=== PATIENT | female | born 1945 | race Caucasian/White ===

== ENCOUNTER → 2016-12-04 | Outpatient (CLI) | payer OTHER ==
[~2016-12-04] VITALS: Ht 154.9 cm; Wt 144.1 kg
[~2016-12-04] MED LIST: ACETAMINOPHEN325 M1 PO; AUGMENTIN XR 11 EACH PO; AUGMENTIN XR1000 MG PO; CARVEDILOL6.25 MG PO; DILTIAZEM 24HR180 MG PO; FAMVIR250 MG PO; FLAGYL; FOLIC ACID0.8 MG PO; IBUPROFEN 200200 M1 PO; IBUPROFEN 600600 M1 PO; IRON325 PO; LIPITOR40 MG PO; METHADONE HCL 110 M1 PO; MOBIC7.5 MG PO; NEOSPORIN OINTM15 GM; NORCO 5-325 TA1 EACH PO; OPANA10 MG PO; OXYCODONE HCL15 MG PO; OXYMORPHONE HCL10 MG PO; PRILOSEC 20 MG20 MG PO; PROZAC10 MG PO; STOOL SOFTENER1 EAC2 PO; SYNTHROID150 MCG PO; VITAMIN D 5050000 I1 PO; VITAMIN D-32000 UNIT PO; VOLTAREN GEL 1100 G2 TOP; VOLTAREN GEL 1100 GM TOP; XARELTO10 MG PO; XARELTO20 MG PO
--- NOTE | ~2016-12-04 | HPC ---
[facility] [address] [place] [address] PAIN MANAGEMENT CONSULTATION Name: TIAN BERNARD PAGE Room #: REG ASCENCION Renetta#: [id number] Admission: 12/04/16 Attend Phys: Placido Barrera DO Discharge: Date of : 47 Report #: [id number] THIS REPORT FOR: //name// CC: Leigha Barrera HISTORY OF PRESENT ILLNESS: The patient is a 71-year-old female, typically treated for DJD bilateral knees, right rotator cuff injury, requiring complex medication management, chronic pain syndrome, complicated by morbid obesity. Last seen in the pain clinic on 08/06/2016. Continued on methadone 10 mg 1 in the morning, 1 at noon, and 2 at night, Voltaren gel topically for her shoulder. Last urine drug screen in October of 2015 was positive for prescribed medication. She returns to pain clinic today noting medications are generally providing sufficient analgesia to participate in activities of daily living, with incidentally noting some increasing pain in her thumbs and thenar eminence bilaterally. She is fairly sedentary. BMI is 60 kilograms per meter squared, morbidly obese. Blood pressure is 126/80, pulse 77, respirations are 18. Subjective pain score is actually fairly moderate at 3 on a 0-10 visual analog scale, primarily complaining of pain in her knees, shoulders, and hands. PHYSICAL EXAMINATION: Otherwise unchanged, massively obese. VITAL SIGNS: Stable. NEUROLOGICAL: Cranial nerves 2-12 are grossly intact. Rises from the chair using armrest. Tandem gait, though she does have an antalgic gait. Hand grasp is symmetric. Subjective pain over the thenar eminence. We reviewed the fact that opiate medications are being used to provide analgesia adequate to support activities of daily living, not attempting to achieve a specific pain score on the 0-10 Visual Analog Scale. The current opiate medications are providing sufficient analgesia to allow the patient to participate in activities of daily living. The patient is not exhibiting any aberrant behavior suggestive of drug diversion. The patient is not having any adverse reactions to medications. The patient is not suffering from daytime somnolence or mental acuity changes. The patient is managing opiate-induced constipation with appropriate zfla-mzt-opgemjv agents and dietary considerations. The patient was counseled on concern for caution with operating a motor vehicle while using opiate medications. A physical exam was performed and the patient's functional status was evaluated. All patients with back pain were advised against the bed rest greater than 4 days and were advised to return to normal activities. Pain score assessment was noted and the treatment plan was reviewed with the patient. All current medications, both prescribed and OTC were reviewed and reconciled on the electronic medical record. Tobacco screening was accomplished and smoking cessation was advised when indicated. BMI was noted and diet/exercise modification was recommended for all patients following outside normal parameters. [address] [address] PAIN MANAGEMENT CONSULTATION Name: TIAN BERNARD PAGE Room #: REG CLShaista Jackson#: [id number] Admission: 12/04/16 Attend Phys: Placido Barrera DO Discharge: Date of : 47 Report #: [id number] I reviewed with the patient today their responsibilities to safeguard prescription medications, reviewed their responsibility to utilize medications only as prescribed by the physician. They are to seek and receive pain medications only from 1 physician group ( [facility]). They are to use 1 pharmacy and keep the clinic informed if they change pharmacies. Their responsibilities include making followup visits in a timely fashion and to avoid abrupt discontinuation of medication usage. Their responsibilities further include bringing their medications (bottles from the pharmacy with residual pills) to the visit for possible confirmation of pill counts and the patient understands it is their responsibility to submit to random drug screens to ensure both that the medications prescribed are present, and that no other controlled substances are present. All prescriptions provided today were generated electronically. ASSESSMENT: Degenerative joint disease, bilateral knees and hands, right rotator cuff tear by history, morbid obesity requiring complex medication management, stable on baseline medication. RECOMMENDATIONS: 1. Urine drug screen today. No aberrant behavior suggestive for drug diversion, simply complying with our opiate consent to treat contract, and it has been about a year since her last UDS. 2. Continue methadone 10 mg 1 in the morning, 1 at noon, and 2 at night, Voltaren gel topically. I have taken the liberty of writing for 2 months of current medication. Follow up at that time, earlier if needed. <ELECTRONICALLY SIGNED> By: Placido Barrera DO 12/07/16 1538 [id number] Placido Barrera DO /nt
[2016-12-04 10:56] VITALS: BP 126/80
== END | disposition home or self-care (01) ==
LOC: PAIN 06:30
DX: M17.0 Bilateral primary osteoarthritis of knee (principal); M19.042 Primary osteoarthritis, left hand; M19.041 Primary osteoarthritis, right hand; G89.4 Chronic pain syndrome; E66.01 Morbid (severe) obesity due to excess calories; F11.20 Opioid dependence, uncomplicated; Z68.44 Body mass index [BMI] 60.0-69.9, adult; Z98.890 Other specified postprocedural states; Z87.891 Personal history of nicotine dependence

== ENCOUNTER → 2017-01-25 | Outpatient (CLI) | payer OTHER ==
[~2017-01-25] VITALS: Ht 152.4 cm; Wt 148.1 kg
[~2017-01-25] MED LIST changes: +ACETAMINOPHEN-1 EAC1 PO; +AMOXICILLIN 50500 MG PO
--- NOTE | ~2017-01-25 | HPC ---
[facility] [place] [address] PAIN MANAGEMENT CONSULTATION Name: TIAN BERNARD PAGE Room #: REG ASCENCION Renetta#: [id number] Admission: 01/25/17 Attend Phys: Placido Barrera DO Discharge: Date of : 47 Report #: [id number] THIS REPORT FOR: //name// CC: Leigha Barrera The patient is a 71-year-old female typically treated for DJD affecting bilateral knees, history of right rotator cuff tear, morbid obesity requiring complex medication management. Last urine drug screen at visit 12/04/2016, was positive for prescribed medications. The patient returns to pain clinic today. She continues taking methadone 10 mg 1 in the morning, 1 at noon, and 2 at night, Voltaren gel topically for her shoulders and knees. In the interval since we last saw her, she had a dental abscess, right lower tooth, she is on a second course of antibiotics. She was given Tylenol No. 3 to take for pain. She had contacted me late last week regarding a prescription from the dentist and I okayed it. Returns to pain clinic today noting pain is 6/10. Chronic aching pain in her back and hips with ongoing right-sided neck pain secondary to the dental abscess. PHYSICAL EXAMINATION: Shows 71-year-old female, BMI is quite elevated at 63.7 kilograms per meter squared. Vital signs are stable. I detect nominal shotty adenopathy in the right neck fairly minimal. Rises from chair using armrest. Modestly antalgic gait, diffuse tenderness across the low back. We reviewed the fact that opiate medications are being used to provide analgesia adequate to support activities of daily living, not attempting to achieve a specific pain score on the 0-10 Visual Analog Scale. The current opiate medications are providing sufficient analgesia to allow the patient to participate in activities of daily living. The patient is not exhibiting any aberrant behavior suggestive of drug diversion. The patient is not having any adverse reactions to medications. The patient is not suffering from daytime somnolence or mental acuity changes. The patient is managing opiate-induced constipation with appropriate ndvo-bbs-wfcnpov agents and dietary considerations. The patient was counseled on concern for caution with operating a motor vehicle while using opiate medications. A physical exam was performed and the patient's functional status was evaluated. All patients with back pain were advised against the bed rest greater than 4 days and were advised to return to normal activities. Pain score assessment was noted and the treatment plan was reviewed with the patient. All current medications, both prescribed and OTC were reviewed and reconciled on the electronic medical record. Tobacco screening was accomplished and smoking cessation was advised when indicated. BMI was noted and diet/exercise modification was recommended for all patients following outside normal parameters. [address] [address] PAIN MANAGEMENT CONSULTATION Name: TIAN BERNARD PAGE Room #: REG ASCENCION Jackson#: [id number] Admission: 01/25/17 Attend Phys: Placido Barrera DO Discharge: Date of : 47 Report #: [id number] I reviewed with the patient today their responsibilities to safeguard prescription medications, reviewed their responsibility to utilize medications only as prescribed by the physician. They are to seek and receive pain medications only from 1 physician group ( [facility]). They are to use 1 pharmacy and keep the clinic informed if they change pharmacies. Their responsibilities include making followup visits in a timely fashion and to avoid abrupt discontinuation of medication usage. Their responsibilities further include bringing their medications (bottles from the pharmacy with residual pills) to the visit for possible confirmation of pill counts and the patient understands it is their responsibility to submit to random drug screens to ensure both that the medications prescribed are present, and that no other controlled substances are present. All prescriptions provided today were generated electronically. ASSESSMENT: Degenerative joint disease affecting bilateral knees, right rotator cuff injury by history, morbid obesity requiring complex medication management. RECOMMENDATION: Continue methadone 10 mg 1 in the morning, 1 at noon, and 2 at night, Voltaren gel topically. Follow up in 2 months for reevaluation. <ELECTRONICALLY SIGNED> By: Placido Barrera DO 01/27/17 1252 [id number] Placido Barrera DO /nt
[2017-01-25 14:10] VITALS: BP 135/88
== END ==
LOC: PAIN 06:47
DX: M17.0 Bilateral primary osteoarthritis of knee (principal); E66.01 Morbid (severe) obesity due to excess calories; Z79.891 Long term (current) use of opiate analgesic; Z68.44 Body mass index [BMI] 60.0-69.9, adult; Z87.891 Personal history of nicotine dependence; D64.89 Other specified anemias

== ENCOUNTER → 2017-03-25 | Outpatient (CLI) | payer OTHER ==
[~2017-03-25] VITALS: Ht 152.4 cm; Wt 135.2 kg
[~2017-03-25] MED LIST changes: +MUCINEX DM ER1 EACH PO; +MUCINEX TA600 MG/TA2 PO; +STOOL SOFTENER240 MG PO; +UNICOMPLEX M TA1 TA1 PO
--- NOTE | ~2017-03-25 | HPC ---
[facility] [place] [address] PAIN MANAGEMENT CONSULTATION Name: BERNARD,TIAN PAGE Room #: REG ASCENCION Jackson#: [id number] Admission: 03/25/17 Attend Phys: Placido Barrera DO Discharge: Date of : 47 Report #: [id number] THIS REPORT FOR: //name// CC: Leigha Barrera The patient is a 71-year-old female being treated for DJD bilateral knees, comorbidities include morbid obesity, BMI of 63.7 kilograms per meter squared, history of right rotator cuff tear, requiring complex medication management. The patient was last seen in the pain clinic 01/25/2017, continued on methadone 10 mg 1 in the morning, 1 at noon, and 2 at night, Voltaren gel topically. Last urine drug screen 12/04/2016 was positive for prescribed medications. The patient returns to pain clinic today. Doing well with current medications, rates pain as 6 on a VAS. She prior struggled with a tooth abscess and that has resolved. She is off antibiotics, may have some dental work shortly. I did enable the patient to use a short course of p.o. narcotic from her dentist if they move on towards an implant, again that typically should be only a few days. Currently, the patient notes pain in bilateral knees, exacerbated with standing and walking. To her credit, she has started doing a little more exercises. I had suggested walking in a flat surface, i.e. the big-box stores like [employer], and/or in a shopping mall. She is trying to do this once or twice a week. We reviewed the fact that opiate medications are being used to provide analgesia adequate to support activities of daily living, not attempting to achieve a specific pain score on the 0-10 Visual Analog Scale. The current opiate medications are providing sufficient analgesia to allow the patient to participate in activities of daily living. The patient is not exhibiting any aberrant behavior suggestive of drug diversion. The patient is not having any adverse reactions to medications. The patient is not suffering from daytime somnolence or mental acuity changes. The patient is managing opiate-induced constipation with appropriate ibaf-juo-zpthuja agents and dietary considerations. The patient was counseled on concern for caution with operating a motor vehicle while using opiate medications. A physical exam was performed and the patient's functional status was evaluated. All patients with back pain were advised against the bed rest greater than 4 days and were advised to return to normal activities. Pain score assessment was noted and the treatment plan was reviewed with the patient. All current medications, both prescribed and OTC were reviewed and reconciled on the electronic medical record. Tobacco screening was accomplished and smoking cessation was advised when indicated. BMI was noted and diet/exercise modification was recommended for all patients following outside normal parameters. [address] [address] PAIN MANAGEMENT CONSULTATION Name: TIAN BERNARD PAGE Room #: REG ASCENCION Jackson#: [id number] Admission: 03/25/17 Attend Phys: Placido Barrera DO Discharge: Date of : 47 Report #: [id number] I reviewed with the patient today their responsibilities to safeguard prescription medications, reviewed their responsibility to utilize medications only as prescribed by the physician. They are to seek and receive pain medications only from 1 physician group ([facility]). They are to use 1 pharmacy and keep the clinic informed if they change pharmacies. Their responsibilities include making followup visits in a timely fashion and to avoid abrupt discontinuation of medication usage. Their responsibilities further include bringing their medications (bottles from the pharmacy with residual pills) to the visit for possible confirmation of pill counts and the patient understands it is their responsibility to submit to random drug screens to ensure both that the medications prescribed are present, and that no other controlled substances are present. All prescriptions provided today were generated electronically. PHYSICAL EXAMINATION: Shows a 71-year-old female, again BMI is quite elevated at 63.7 kilograms per meter squared. Vital signs otherwise stable. Alert and oriented to person, place and time, judged to be a reasonable historian.: Rises from chair using armrests, has an antalgic gait, uses a cane for balance. Lower extremity strength is symmetric. Pain in the knees with ambulation. Again, given the patient's body habitus, difficult to tell if there is edema in the knees. ASSESSMENT: Chronic pain secondary to degenerative joint disease, bilateral knees. Comorbidity includes morbid obesity, requiring complex medication management. History of rotator cuff (right) injury, relatively quiescent. History of some dental issues which is ongoing. She has had Tylenol No. 3, #10 prescription from her dentist for a prior abscess. They told her again they can repeat that if they move on towards an implant. I have taken the liberty of writing for 2 months of current medications. Follow up at that time, earlier if needed. By: 1217 [id number] Placido Barrera DO /nt
[2017-03-25 11:20] VITALS: BP 156/82
== END ==
LOC: PAIN 06:53
DX: M17.0 Bilateral primary osteoarthritis of knee (principal)

== ENCOUNTER → 2017-05-13 | Outpatient (CLI) | payer OTHER ==
[~2017-05-13] VITALS: Ht 152.4 cm; Wt 150.9 kg
--- NOTE | ~2017-05-13 | HPC ---
[facility] [place] [address] PAIN MANAGEMENT CONSULTATION Name: BERNARDTIAN PAGE Room #: REG ASCENCION Renetta#: [id number] Admission: 05/13/17 Attend Phys: Placido Barrera DO Discharge: Date of : 47 Report #: [id number] THIS REPORT FOR: //name// CC: Leigha Barrera DATE OF SERVICE: 05/13/2017 The patient is a 71-year-old female being treated for DJD bilateral knees, right shoulder requiring high risk complex medication management. Comorbidity includes morbid obesity. Last visit, her BMI was 63.7 kilograms per meter squared. She has increased again up to 65 kilograms per meter squared at this visit. The patient uses methadone 10 mg 1 in the morning, 1 in the afternoon, 2 at night and Voltaren gel topically. Last urine drug screen 12/04/2016 was positive for prescribed medications. Returns to pain clinic today noting that pain continues to be problematic, but medications do help with pain. She complains of bilateral knee pain primarily, rates it 3-5 on a VAS and exacerbated with walking, standing and exercise. The patient notes she gets "tired" when she walks. Describes some shortness of breath with activity. She did follow up with her general practitioner. Starting in August, they did a chest x-ray and tried some metered dose inhalers as well as nasal aerosols, all with nominal efficacy. I think she simply is highly deconditioned. We reviewed the fact that opiate medications are being used to provide analgesia adequate to support activities of daily living, not attempting to achieve a specific pain score on the 0-10 Visual Analog Scale. The current opiate medications are providing sufficient analgesia to allow the patient to participate in activities of daily living. The patient is not exhibiting any aberrant behavior suggestive of drug diversion. The patient is not having any adverse reactions to medications. The patient is not suffering from daytime somnolence or mental acuity changes. The patient is managing opiate-induced constipation with appropriate ywhd-kay-oalisxi agents and dietary considerations. The patient was counseled on concern for caution with operating a motor vehicle while using opiate medications. A physical exam was performed and the patient's functional status was evaluated. All patients with back pain were advised against the bed rest greater than 4 days and were advised to return to normal activities. Pain score assessment was noted and the treatment plan was reviewed with the patient. All current medications, both prescribed and OTC were reviewed and reconciled on the electronic medical record. Tobacco screening was accomplished and smoking cessation was advised when indicated. BMI was noted and diet/[place] [address] PAIN MANAGEMENT CONSULTATION Name: BISHOPTIAN PAGE Room #: REG ASCENCION Jackson#: [id number] Admission: 05/13/17 Attend Phys: Placido Barrera DO Discharge: Date of : 47 Report #: [id number] modification was recommended for all patients following outside normal parameters. I reviewed with the patient today their responsibilities to safeguard prescription medications, reviewed their responsibility to utilize medications only as prescribed by the physician. They are to seek and receive pain medications only from 1 physician group ([facility]). They are to use 1 pharmacy and keep the clinic informed if they change pharmacies. Their responsibilities include making followup visits in a timely fashion and to avoid abrupt discontinuation of medication usage. Their responsibilities further include bringing their medications (bottles from the pharmacy with residual pills) to the visit for possible confirmation of pill counts and the patient understands it is their responsibility to submit to random drug screens to ensure both that the medications prescribed are present, and that no other controlled substances are present. All prescriptions provided today were generated electronically. PHYSICAL EXAMINATION: Shows 71-year-old female, again 151 kilograms, 152 cm, 65 kilograms per meter squared BMI. Blood pressure is elevated 151/94, pulse 70, respirations are 16. Alert and oriented to person, place and time, judged to be a reasonable historian, massively obese. Rises from the chair using armrest. Antalgic gait. Tender at the knees, but due to body habitus, I am unable to appreciate any ballottable edema. ASSESSMENT: Degenerative joint disease, bilateral knees; pain in the right shoulder, likely degenerative joint disease as well; chronic pain syndrome requiring high risk complex medication management. Comorbidity includes morbid obesity. RECOMMENDATION: Continue methadone 10 mg 1 in the morning, 1 in the afternoon, 2 at night and Voltaren gel topically. Strongly again encouraged dietary discretion and increased activity. <ELECTRONICALLY SIGNED> By: Placido Barrera DO 05/17/17 0840 1620 [id number] Placido Barrera DO /nt
[2017-05-13 12:38] VITALS: BP 151/94
== END ==
LOC: PAIN 06:36
DX: M25.562 Pain in left knee (principal); M25.561 Pain in right knee

== ENCOUNTER → 2017-07-19 | Outpatient (CLI) | payer OTHER ==
[~2017-07-19] VITALS: Ht 152.4 cm; Wt 148.6 kg
--- NOTE | ~2017-07-19 | HPC ---
[facility] [address] [place] [address] PAIN MANAGEMENT CONSULTATION Name: BERNARD,TIAN PAGE Room #: REG ASADShaista Jackson#: [id number] Admission: 07/19/17 Attend Phys: Placido Barrera DO Discharge: Date of : 47 Report #: [id number] THIS REPORT FOR: //name// CC: Alessandra Barrera DATE OF SERVICE: 07/19/2017 The patient is a 72-year-old female being treated for DJD affecting knees and right shoulder, chronic pain syndrome requiring high risk complex medication management. Last seen in the pain clinic 05/13/2017. Continue methadone 10 mg 1 in the morning, 1 at noon, and 2 at night, Voltaren gel topically. Last random drug screen 12/04/2016 was positive for prescribed medications. She returns to pain clinic today noting pain remains problematic in the knees. She uses a cane to get around. Has occasional pain in the thenar eminence bilaterally. Some pain in the right shoulder, but bilateral knee pain remains problematic. She has lot little weight down from 330 pounds to about 327. BMI remains greater than 50 kilograms per meter squared. Ongoing knee pain, she is trying to find a new orthopedic physician. We had discussed Synvisc and/or Orthovisc type injection, which may help with her chronic DJD. Otherwise, we again reiterated fact that weight reduction will likely help with hip, knee and ankle pain secondary to degenerative joint disease. I talked about increasing caloric restriction and increasing physical activity this show a net overall weight loss. PHYSICAL EXAMINATION: Otherwise unchanged. Very pleasant 72-year-old female. Vital signs are stable. Rises from chair using armrest, antalgic gait. A significant endomorphic built. Uses a cane primarily in the right hand. Again, tenderness in the knees, though I cannot detect ballotable edema, again significant redundant tissue in this area precludes the thorough exam. We reviewed the fact that opiate medications are being used to provide analgesia adequate to support activities of daily living, not attempting to achieve a specific pain score on the 0-10 Visual Analog Scale. The current opiate medications are providing sufficient analgesia to allow the patient to participate in activities of daily living. The patient is not exhibiting any aberrant behavior suggestive of drug diversion. The patient is not having any adverse reactions to medications. The patient is not suffering from daytime somnolence or mental acuity changes. The patient is managing opiate-induced constipation with appropriate jznr-svj-qhffanq agents and dietary considerations. The patient was counseled on concern for caution with operating a motor vehicle while using opiate medications. A physical exam was performed and the patient's functional status was evaluated. All patients with back pain were advised against the bed rest greater than 4 days and were advised to return to normal activities. Pain score assessment was [address] [address] PAIN MANAGEMENT CONSULTATION Name: BERNARDTIAN PAGE Room #: REG CLShaista Jackson#: [id number] Admission: 07/19/17 Attend Phys: Placido Barrera DO Discharge: Date of : 47 Report #: [id number] noted and the treatment plan was reviewed with the patient. All current medications, both prescribed and OTC were reviewed and reconciled on the electronic medical record. Tobacco screening was accomplished and smoking cessation was advised when indicated. BMI was noted and diet/exercise modification was recommended for all patients following outside normal parameters. I reviewed with the patient today their responsibilities to safeguard prescription medications, reviewed their responsibility to utilize medications only as prescribed by the physician. They are to seek and receive pain medications only from 1 physician group ( [facility]). They are to use 1 pharmacy and keep the clinic informed if they change pharmacies. Their responsibilities include making followup visits in a timely fashion and to avoid abrupt discontinuation of medication usage. Their responsibilities further include bringing their medications (bottles from the pharmacy with residual pills) to the visit for possible confirmation of pill counts and the patient understands it is their responsibility to submit to random drug screens to ensure both that the medications prescribed are present, and that no other controlled substances are present. All prescriptions provided today were generated electronically. ASSESSMENT: Chronic degenerative joint disease pain primarily in the knees requiring high risk complex medication management, stable on baseline medication. RECOMMENDATION: Renewed methadone 10 mg 1 in the morning, 1 at noon, and 2 at night, Voltaren gel topically have taken the liberty of writing for 2 months of current medication. Follow up at that time, earlier if needed. <ELECTRONICALLY SIGNED> By: Placido Barrera DO 07/21/17 0834 1315 1745 Placido Barrera DO /nt
[2017-07-19 12:53] VITALS: BP 149/88
== END ==
LOC: PAIN 07:01
DX: M17.0 Bilateral primary osteoarthritis of knee (principal); M19.011 Primary osteoarthritis, right shoulder; Z79.899 Other long term (current) drug therapy

== ENCOUNTER → 2017-09-13 | Outpatient (CLI) | payer OTHER ==
[~2017-09-13] VITALS: Ht 152.4 cm; Wt 138.7 kg
[~2017-09-13] MED LIST changes: +ASPIR 8181 M1 PO; +ATENOLOL 25 MG25 M1 PO; +BREO ELLIPTA 11 EACH INH; +COREG6.25 MG PO; +COZAAR 50 MG TA50 M1 PO; +EFFIENT10 MG PO; +K-DUR 20 MEQ T20 MEQ PO; +KLOR-CON 10 ER10 MEQ PO; +LASIX 40 MG TAB40 M2 PO; +LOSARTAN POTASS50 MG PO; +MAALOX ADVANCE355 ML PO; +MAXZIDE-25 MG1 EACH PO; +MEDROLDOSEPACK PO; +POTASSIUM20 PO; +RANITIDINE HCL300 MG PO; +ROBITUSSIN100 MG/53 PO
--- NOTE | ~2017-09-13 | HPC ---
[facility] [place] [address] PAIN MANAGEMENT CONSULTATION Name: TIAN PAGE Room #: REG ASCENCION Renetta#: [id number] Admission: 09/13/17 Attend Phys: Placido Barrera DO Discharge: Date of : 47 Report #: [id number] THIS REPORT FOR: //name// CC: Alessandra Barrera HISTORY OF PRESENT ILLNESS: The patient is a 72-year-old female typically treated for DJD, bilateral knees requiring high-risk complex medication management. Comorbidity includes morbid obesity. Last seen in the pain clinic on 07/19/2017, continue methadone 10 mg 4 a day, 1 in the morning, 1 at noon and 2 at night and Voltaren gel topically for both knees and left hand. Last random drug screen on 12/04/2016 was positive for prescribed medications. Returns to pain clinic today noting pain continues to be problematic, but medications are helpful. She rates her subjective pain 8 on a VAS. Does have osteoarthritis, bilateral knees and left thumb. BMI remains elevated at 39.7 kilograms per meter squared. Blood pressure shows modest hypertension, 163/89; pulse 60 and respirations 22. The patient's medicine list was reconciled, which does include carvedilol for hypertension as well as atorvastatin for dyslipidemia. She is on blood thinner, Xarelto. The patient has been on opiate consent to treat, contracted since 06/05/2015. Opiate risk assessment tool scores are in the low risk category. We reviewed the fact that opiate medications are being used to provide analgesia adequate to support activities of daily living, not attempting to achieve a specific pain score on the 0-10 Visual Analog Scale. The current opiate medications are providing sufficient analgesia to allow the patient to participate in activities of daily living. The patient is not exhibiting any aberrant behavior suggestive of drug diversion. The patient is not having any adverse reactions to medications. The patient is not suffering from daytime somnolence or mental acuity changes. The patient is managing opiate-induced constipation with appropriate wbyk-klk-ljjtmwi agents and dietary considerations. The patient was counseled on concern for caution with operating a motor vehicle while using opiate medications. A physical exam was performed and the patient's functional status was evaluated. All patients with back pain were advised against the bed rest greater than 4 days and were advised to return to normal activities. Pain score assessment was noted and the treatment plan was reviewed with the patient. All current medications, both prescribed and OTC were reviewed and reconciled on the electronic medical record. Tobacco screening was accomplished and smoking cessation was advised when indicated. BMI was noted and diet/exercise modification was recommended for all patients following outside normal parameters. I reviewed with the patient today their responsibilities to safeguard prescription medications, reviewed their responsibility to utilize medications [address] [address] PAIN MANAGEMENT CONSULTATION Name: BISHOPTIAN PAGE Room #: REG CLShaista Jackson#: [id number] Admission: 09/13/17 Attend Phys: Placido Barrera DO Discharge: Date of : 47 Report #: [id number] only as prescribed by the physician. They are to seek and receive pain medications only from 1 physician group ([facility]). They are to use 1 pharmacy and keep the clinic informed if they change pharmacies. Their responsibilities include making followup visits in a timely fashion and to avoid abrupt discontinuation of medication usage. Their responsibilities further include bringing their medications (bottles from the pharmacy with residual pills) to the visit for possible confirmation of pill counts and the patient understands it is their responsibility to submit to random drug screens to ensure both that the medications prescribed are present, and that no other controlled substances are present. All prescriptions provided today were generated electronically. The patient notes ongoing pain continues to be problematic primarily, left thumb intermittently now and she has used a cane in her right hand, knees chronically. PHYSICAL EXAMINATION: Unchanged from last visit. ASSESSMENT: Symptomatic degenerative joint disease, bilateral knees and left thumb requiring high risk complex medication management. RECOMMENDATIONS: Continue Voltaren gel topically, primarily is on the knees. Continue methadone 10 mg 1 in the morning, 1 at noon and 2 at night and we will trial short course of a Medrol Dosepak, does not afford adequate relief of her left thumb and hand. We will refer to Orthopedics for further evaluation. Discharged in good and stable condition. Follow up in 2 months for reevaluation. <ELECTRONICALLY SIGNED> By: Placido Barrera DO 09/15/17 0811 1531 0521 Placido Barrera DO /nt
[2017-09-13 14:15] VITALS: BP 163/89
== END ==
LOC: PAIN 07:03
DX: M17.0 Bilateral primary osteoarthritis of knee (principal); M19.042 Primary osteoarthritis, left hand; Z79.899 Other long term (current) drug therapy

== ENCOUNTER → 2017-11-08 | Outpatient (CLI) | payer OTHER ==
[~2017-11-08] VITALS: Ht 152.4 cm; Wt 137.5 kg
--- NOTE | ~2017-11-08 | HPC ---
[facility] [address] [place] [address] PAIN MANAGEMENT CONSULTATION Name: TIAN BERNARD PAGE Room #: REG ASADShaista Jackson#: [id number] Admission: 11/08/17 Attend Phys: Placido Barrera DO Discharge: Date of : 47 Report #: [id number] THIS REPORT FOR: //name// CC: Alessandra Barrera DATE OF SERVICE: 11/08/2017 The patient is a 72-year-old female, long treated for osteoarthritis affecting bilateral knees, chronic pain syndrome requiring complex medication management. Comorbidity includes morbid obesity and a history of pulmonary embolism for which she is on Xarelto. She has been stable on Voltaren gel topically, methadone 10 mg 4 tablets a day, typically 1-1/2 in the morning, 1 at noon, 1-1/2 at night. Last visit 09/13/2017, the patient was having some increasing joint pain compatible with arthritic generated pain, we did provide a prescription for Medrol Dosepak at that time. The patient returns to pain clinic today. To her credit, she has tried to wean opiate as able. She has dropped down from 4, to 3, to now the last 2 weeks methadone 10 mg twice a day. She notes functional status has continued to be generally the same. She notes that she had been becoming a little bit drowsy during the day and her daughter told her that she was mumbling a bit in her sleep and this caused the patient some chagrin. She does live in the basement of her daughter's home. She does have to climb stairs daily. She notes she feels that her gait is becoming a little more ataxic due to knee pain. She does use a cane 100% of time outside of the home and throughout the day she typically will "furniture walk," relying on touching the rutherford or furniture for proprioception and balance. We reviewed the fact that opiate medications are being used to provide analgesia adequate to support activities of daily living, not attempting to achieve a specific pain score on the 0-10 Visual Analog Scale. The current opiate medications are providing sufficient analgesia to allow the patient to participate in activities of daily living. The patient is not exhibiting any aberrant behavior suggestive of drug diversion. The patient is not having any adverse reactions to medications. The patient is not suffering from daytime somnolence or mental acuity changes. The patient is managing opiate-induced constipation with appropriate lcbo-vtd-djcrels agents and dietary considerations. The patient was counseled on concern for caution with operating a motor vehicle while using opiate medications. A physical exam was performed and the patient's functional status was evaluated. All patients with back pain were advised against the bed rest greater than 4 days and were advised to return to normal activities. Pain score assessment was noted and the treatment plan was reviewed with the patient. All current [address] [address] PAIN MANAGEMENT CONSULTATION Name: TIAN BERNARD PAGE Room #: REG CLShaista Jackson#: [id number] Admission: 11/08/17 Attend Phys: Placido Barrera DO Discharge: Date of : 47 Report #: [id number] medications, both prescribed and OTC were reviewed and reconciled on the electronic medical record. Tobacco screening was accomplished and smoking cessation was advised when indicated. BMI was noted and diet/exercise modification was recommended for all patients following outside normal parameters. I reviewed with the patient today their responsibilities to safeguard prescription medications, reviewed their responsibility to utilize medications only as prescribed by the physician. They are to seek and receive pain medications only from 1 physician group ( [facility]). They are to use 1 pharmacy and keep the clinic informed if they change pharmacies. Their responsibilities include making followup visits in a timely fashion and to avoid abrupt discontinuation of medication usage. Their responsibilities further include bringing their medications (bottles from the pharmacy with residual pills) to the visit for possible confirmation of pill counts and the patient understands it is their responsibility to submit to random drug screens to ensure both that the medications prescribed are present, and that no other controlled substances are present. All prescriptions provided today were generated electronically. PHYSICAL EXAMINATION: Shows 72-year-old female, BMI is over 50 kilograms per meter squared. Blood pressure was repeated multiple times, ultimately around 151/87, pulse in the 70s. Alert and oriented to person, place and time, judged to be a reasonable historian. She has a new complaint, she has multiple skin cracks on the distal fingers, one on the left index, one on the right index and ring finger. The fingers do appear to be a little bit swollen and erythematous. They do not appear to be terribly cold, she does have peripheral pulses. She has not changed any medications recently other than slowly weaning the methadone. She has not changed soap or cleaning products that she uses at home. I am at a loss to determine the etiology of these skin changes. I did suggest she follow up with Dr. Alessandra Reaves, her orthopaedic general physician, regarding these skin changes in her fingers. Again, as at last visit, I strongly recommend the patient follow up with an orthopedic surgeon regarding her knees. She may require surgical intervention or perhaps less invasive simply knee joint injection. Given her body habitus, I would defer to the orthopedic surgeons, may consider ultrasound-guided injection. ASSESSMENT: Osteoarthritis, bilateral knees; chronic pain syndrome requiring complex medication management. Comorbidities include morbid obesity and history of pulmonary embolism for which she is on Xarelto. RECOMMENDATION: Continue methadone 10 mg 1 tablet 2-3 times a day, limit 90 tablets for 30 days. Encouraged the patient to use lowest possible dose. May even try to drop down to half tablet in the morning and 1 at night. Continue [facility] [address] [place] [address] PAIN MANAGEMENT CONSULTATION Name: TIAN BERNARD PAGE Room #: REG ASCENCION Jackson#: [id number] Admission: 11/08/17 Attend Phys: Placido Barrera DO Discharge: Date of : 47 Report #: [id number] Voltaren gel topically. Buccal drug swab was accomplished today. No aberrant behavior suggestive for drug diversion, simply complying with our opiate consent to treat contract. Discharged in good and stable condition. Follow up in 2 months for reevaluation. <ELECTRONICALLY SIGNED> By: Placido Barrera DO 11/12/17 0944 1255 1313 Placido Barrera DO /nt
[2017-11-08 12:50] VITALS: BP 151/87
== END ==
LOC: PAIN 07:09 → EDSTATUS 13:59 → PAIN 14:01 → EDSTATUS 14:02 → PAIN 14:03
DX: M17.0 Bilateral primary osteoarthritis of knee (principal); G89.29 Other chronic pain; E66.01 Morbid (severe) obesity due to excess calories; Z79.899 Other long term (current) drug therapy; Z86.711 Personal history of pulmonary embolism; Z68.43 Body mass index [BMI] 50.0-59.9, adult

== ENCOUNTER → 2017-12-02 | Outpatient (CLI) | payer OTHER ==
[~2017-12-02] VITALS: Ht 152.4 cm; Wt 136.1 kg
[~2017-12-02] MED LIST changes: -ATENOLOL 25 MG25 M1 PO; -COREG6.25 MG PO; -COZAAR 50 MG TA50 M1 PO; -EFFIENT10 MG PO; -K-DUR 20 MEQ T20 MEQ PO; -KLOR-CON 10 ER10 MEQ PO; -LASIX 40 MG TAB40 M2 PO; -LOSARTAN POTASS50 MG PO; -MAALOX ADVANCE355 ML PO; -MAXZIDE-25 MG1 EACH PO; -POTASSIUM20 PO; -RANITIDINE HCL300 MG PO; -ROBITUSSIN100 MG/53 PO
--- NOTE | ~2017-12-02 | CATHLAB ---
[facility] [place] [address] INVASIVE PROCEDURE REPORT Name: TIAN BERNARD DUBLIN Room #: REG EduardoLakeisha#: [id number] Admission: 12/02/17 Attend Phys: Paulino Bosch MD Discharge: Date of : 49 Date of Service: 12/02/17 1538 Report #: [id number] THIS REPORT FOR: //name// APPROVED REPORT Study performed: 12/02/2017 11:17:28 Patient Details Patient Status: Out-Patient Room #: The patient is a 72 year-old female Event Personnel Paulino Bosch Dragger Out, Van Patten RN, Angela Michael Partnoy, Nancy RTR, HEAD LINEMAN Monitor Procedures Performed Art Access - R radial artery Art Access - R femoral artery* Left Heart Cath w/or w/o Coronaries [id number] [facility] [id number] Initial Mod Sed Same Phys/QHP Gr5y [id number] Hemostasis with Hemoband Hemostasis with Manual pressure Indication Dyspnea, Positive stress test Risk Factors Obesity, HypercholesterolemiaPhysical Activity, Hypertension Procedure Narrative The right femoral was infiltrated with 1% Lidocaine subcutaneous anesthesia. A PINNACLE 4FR Sheath #[id number] sheath was inserted into the RFA^. Coronary angiography was performed using coronary diagnostic catheters. The right coronary system was accessed and visualized with a JR4 catheter. The left coronary system was accessed and visualized with a JL4 catheter. The left ventricle was accessed and visualized with a Pigtail catheter. Left ventricular/Aortic Valve gradient assessed via catheter pullback. Left ventriculogram was performed in 30 degree projection. Closure device was deployed with a Fr VASC BAND L 27CM #[id number]. Hemostasis was obtained with manual pressure following sheath removal without any complications. The patient tolerated the procedure well and there were no complications associated with the procedure. There was no hematoma. Intraoperative Conscious Sedation Sedation start time: 12:10 Case end Time: [facility] [place] [place] [address] INVASIVE PROCEDURE REPORT Name: TIAN BERNARD DUBLIN Room #: REG [facility]#: [id number] Admission: 12/02/17 Attend Phys: Paulino Bosch MD Discharge: Date of : 49 Date of Service: 12/02/17 1538 Report #: [id number] 12:37 Versed 3 mg Fluoro Time: 4.08 minutes Dose: DAP 7546.40 cGycm2 842 mGy Contrast Type and Amount: Visipaque 115 ml Coronary Angiography The patient's coronary anatomy is right dominant. Diagnostic Cath Left Main large-caliber vessel, no flow limiting lesions. LAD There is a severe stenosis in the proximal segment, 70%, at the bifurcation of the first diagonal artery. There is a second severe occlusion in the mid segment, at the bifurcation of the second diagonal artery. This lesion is approximately 80% stenotic. The remaining segments of the LAD did not have any flow-limiting lesions, terminates at the apex. Diagonal 1 moderate size caliber vessel, has a 40% ostial stenosis. Diagonal 2 Moderate size caliber vessel, with a ostial 60% stenosis. Circumflex Supplies to OM vessels. OM1 Patent vessel, no flow limiting lesions. OM2 Patent vessel, no flow-limiting lesions. Right Coronary Large, dominant vessel with mild diffuse disease in the proximal segment, 30%. R PDA Moderate size caliber vessel, with no flow-limiting lesions. RPLV Moderate size caliber vessel, with no flow-limiting lesions. Supplies the inferolateral wall. Left Ventriculography The left ventricle is normal in size with normal contractility. The left ventricular ejection fraction is estimated to be 50-55%. Hemodynamics The aortic pressure is 154/84 mmHg with a mean of 114 mmHg. The left ventricular pressure is 161/15 mmHg with a mean of mmHg. The left ventricular end diastolic pressure is 26 mmHg. Conclusion 1. Severe, complicated lesions in the proximal/mid LAD at the bifurcation of diagonal arteries. 2. Right dominant system with mild disease. [facility] [address] [place] [address] INVASIVE PROCEDURE REPORT Name: TIAN BERNARD PAGE Room #: REG ASAD Jackson#: [id number] Admission: 12/02/17 Attend Phys: Paulino Bosch MD Discharge: Date of : 49 Date of Service: 12/02/17 1538 Report #: [id number] 3. Normal LV systolic function. 4. Recommend CV surgical consultation versus medical therapy versus staged angioplasty. <ELECTRONICALLY SIGNED> By: Paulino Bosch MD 12/02/17 1538 1538 1538 Paulino Bosch MD /INF
[2017-12-02 10:21] VITALS: BP 151/70
[2017-12-02 10:27] LABS: HEMATOCRIT 39.5 % (37.0-47.0); HEMOGLOBIN 12.8 gm/dL (12.0-15.0); MCH 29.9 pg (26.0-34.0); MCHC 32.5 g/dL (28.0-37.0); MCV 91.9 fL (80.0-100.0); RBC 4.3 mil/uL (4.20-5.00); RDW 15.9 % (10.5-14.5); WBC 5.4 thou/uL (4.0-11.0)
[2017-12-02 10:30] LABS: CALCIUM 9.1 mg/dL (8.5-10.1); CREATININE 1.1 mg/dL (0.6-1.0); POTASSIUM 3.6 mmol/L (3.5-5.1)
== END | disposition home or self-care (01) ==
LOC: CATH 07:33
PROVIDERS: Internal Medicine Cardiovascular Disease
DX: I25.10 Atherosclerotic heart disease of native coronary artery without angina pectoris (principal); E78.00 Pure hypercholesterolemia, unspecified; I10 Essential (primary) hypertension; Z90.49 Acquired absence of other specified parts of digestive tract; E66.01 Morbid (severe) obesity due to excess calories; E03.9 Hypothyroidism, unspecified

== ENCOUNTER → 2018-04-01 | Outpatient (CLI) | payer OTHER ==
[~2018-04-01] VITALS: Ht 152.4 cm; Wt 124.8 kg
[~2018-04-01] MED LIST changes: +ATENOLOL 25 MG25 M1 PO; +COREG6.25 MG PO; +COZAAR 50 MG TA50 M1 PO; +EFFIENT10 MG PO; +K-DUR 20 MEQ T20 MEQ PO; +KLOR-CON 10 ER10 MEQ PO; +LASIX 40 MG TAB40 M2 PO; +MAXZIDE-25 MG1 EACH PO; +POTASSIUM20 PO; +ROBITUSSIN100 MG/53 PO
[2018-04-01 13:13] VITALS: BP 174/99
== END ==
LOC: PAIN 07:20
DX: M25.561 Pain in right knee (principal); M25.562 Pain in left knee; G89.29 Other chronic pain; Z79.899 Other long term (current) drug therapy

== ENCOUNTER 2018-04-04 08:36 | Inpatient (IN) | payer OTHER ==
[2018-04-04] VITALS (15 sets, daily range): BP systolic 104–182; BP diastolic 58–111
[~2018-04-04] VITALS: Ht 152.4 cm; Wt 120.7 kg
--- NOTE | ~2018-04-04 | EKG ---
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 : 1945 Requested By: Paulino Bosch Order Number: [id number] MD: Tiago Lopez Measurements Intervals [place] Rate: 79 P: 53 OH: 202 QRS: -5 QRSD: 118 T: 23 QT: 479 QTc: 550 Interpretive Statements Sinus rhythm First-degree AV block Nonspecific intraventricular conduction delay Compared to ECG 03/31/2018 18:06:18 Baseline artifact is now present Electronically Signed On 04-04-2018 17:02:53 CDT by Tiago Lopez [email or web address] <ELECTRONICALLY SIGNED> By: Tiago Lopez MD, [facility] 04/04/18 1702 1303 1303 Tiago Lopez MD, [facility] /EPI
--- NOTE | ~2018-04-04 | D ---
[facility] [place] [address] DISCHARGE SUMMARY Name: TIAN BERNARD BRANDON Room #: 201-P [facility] IN M.R.#: [id number] Admission: 04/04/18 Attend Phys: Paulino Bosch MD Discharge: 04/07/18 Date of : 49 Report #: [id number] THIS REPORT FOR: //name// CC: FAM unknown Paulino GILMAN DATE OF SERVICE: 04/07/2018 FINAL DIAGNOSES: 1. Unstable angina, status post coronary intervention. 2. Acute on chronic diastolic congestive heart failure. 3. Paroxysmal atrial fibrillation. 4. Deep venous thrombosis. 5. Arthritis. 6. Obesity/general debility. 7. Hypertension. 8. Hyperlipidemia. HOSPITAL COURSE: Please see the original H and P for full details. The patient had a previous catheterization revealing multiple lesions in the proximal and mid segments of the LAD. She did undergo a cardiothoracic consultation for surgery. She was deemed a poor candidate for bypass surgery. It was decided to continue with medical therapy. She presented to the office with complaints of increasing dyspnea with mild levels of physical exertion at home. It was decided to proceed with percutaneous coronary intervention of the LAD lesions. The patient presented to the ER with palpitations, diagnosed with atrial fibrillation. By the time she got to the Emergency Room, the rhythm had converted to sinus. Her medication was changed from Coreg to atenolol. The patient did undergo percutaneous coronary intervention with placement of drug-eluting stents into the proximal and mid segments of the LAD. During the procedure, the patient developed respiratory distress, diagnosed with [id number] diastolic congestive heart failure. She was started on Lasix and IV nitro. She was transferred to the ICU. She diuresed over 6 liters in the first evening. She did have a transient episode of low blood pressure. She continued with Lasix therapy, diuresed very well. She remains stable from a cardiac standpoint for discharge. She will be on aspirin, Effient and Xarelto. She does have a history of PE as well. I explained to the patient the pros and cons of 3 antiplatelet/anticoagulant medications. She is instructed to ambulate slowly and continue to use her cane. She will follow up in the office MEDICATIONS: Xarelto 20 mg daily, aspirin 81 mg, Effient 10 mg, atenolol 25 mg, [address] [address] DISCHARGE SUMMARY Name: TIAN BERNARD PAGE Room #: 201-P [facility].#: [id number] Admission: 04/04/18 Attend Phys: Paulino Bosch MD Discharge: 04/07/18 Date of : 49 Report #: [id number] Lipitor 80 mg, Lasix 40 mg, Cozaar 50 mg, potassium methadone for pain and continue with other medications. <ELECTRONICALLY SIGNED> By: Paulino Bosch MD 04/11/18 0812 0833 Blake Bosch MD /alejandra
--- NOTE | ~2018-04-04 | EKG ---
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: JOE : 1945 Requested By: Paulino Bosch Order Number: [id number] MD: Tiago Lopez Measurements Intervals [place] Rate: 59 P: [place]: QRS: -12 QRSD: 107 T: -8 QT: 493 QTc: 489 Interpretive Statements Sinus bradycardia Nonspecific T wave abnormality Borderline prolonged QT interval Compared to ECG 03/31/2018 18:06:18 QT interval has lengthened Electronically Signed On 04-04-2018 16:48:26 CDT by Tiago Lopez [email or web address] <ELECTRONICALLY SIGNED> By: Tiago Lopez MD, [facility] 04/04/18 1648 6 6 Tiago Lopez MD, [facility] /EPI
--- NOTE | ~2018-04-04 | CATHLAB ---
[facility] [place] [address] INVASIVE PROCEDURE REPORT Name: TIAN BERNARD MADRID Room #: 246-P [facility] IN .R.#: [id number] Admission: 04/04/18 Attend Phys: Paulino Bosch MD Discharge: Date of : 49 Date of Service: 04/04/18 1637 Report #: [id number] THIS REPORT FOR: //name// APPROVED REPORT Study performed: 04/04/2018 10:48:53 Patient Details Patient Status: Out-Patient Room #: The patient is a 72 year-old female Event Personnel Huber Navarro RN RN, Errol Elizabeth RN RN, Paulino Bosch Activity Assistant, Faisal Leal Partnoy, Nancy RTR, TIE MILL OPERATOR Monitor, Concepcion West Monitor Procedures Performed Art Access - R femoral artery* 75915 Initial Mod Sed Same Phys/QHP Gr5y 529296 42474 Mod Sed Same Phys/QHP Ea 867744 [address]AW[address] Place w/wo Plasty Single LAD 763800 Hemostasis w/ Mynx Indication CHF Current Status: , Dyspnea, Positive stress test, Chest pain, Anginal equivalent is dyspnea on exertion. Risk Factors Obesity, HypercholesterolemiaPhysical Activity, Hypertension Procedure Narrative The RFG^ was infiltrated with 1% Lidocaine subcutaneous anesthesia. A 6F Lyman Sheath sheath was inserted into the RFA^. Coronary angiography was performed using coronary diagnostic catheters. The left coronary system was accessed and visualized with a [employer]ed [employer] 6FR XB 3.5 #[id number] catheter. Pre-demployment femoral angiogram was performed . Closure device was deployed with a 6 Fr 6F/7F Mynx [id number]. The patient tolerated the procedure well and there were no complications associated with the procedure. There was no hematoma. Intraoperative Conscious Sedation Sedation start time: 11:25 Case end Time: 12:27 Fentanyl 50 mcg Versed 2 mg Fluoro Time: 20.23 minutes [place] [address] [employer] [address] INVASIVE PROCEDURE REPORT Name: BERNARDTIAN MADRID Room #: 246-P [facility] IN ..#: [id number] Admission: 04/04/18 Attend Phys: Paulino Bosch MD Discharge: Date of : 49 Date of Service: 04/04/18 1637 Report #: [id number] Dose: DAP 54307.30 cGycm2 3111 mGy Contrast Type and Amount: Visipaque 275 ml Coronary Angiography The patient's coronary anatomy is right dominant. Diagnostic Cath LAD There is a 80% stenosis in the proximal segment. There is a 70-80% stenosis in the mid LAD segment, at the bifurcation of a second diagonal artery. The second diagonal artery has an ostial 70% stenosis. IVUS Anticoagulation was achieved with . Angiomax Intravascular Ultrasound was performed on the mid left anterior descending artery segment vessel. Fractional Flow [place] was performed on the 80 vessel. A 3 Guide Catheter was used to engage the ostium. A LCA Interventional Guidewire was used. A Luge Wire .014 x 182CM #[id number] was used. IVUS Findings Euphora RX 2.0 x12 #[id number] Hemodynamics The aortic pressure is 166/78 mmHg with a mean of 112 mmHg. PCI Technique Lesion Anticoagulation was achieved with Angiomax. Patient was preloaded with Effient. Percutaneous coronary intervention was performed on the proximal left anterior descending artery segment. The lesion stenosis prior to intervention was 80% with LIVIER 3 flow. A VISTA 6FR XB 3.5 #762605 Guide Catheter was used to engage the LCA ostium. A Luge Wire .014 x 182CM #[id number] Interventional Guidewire was used to cross the lesion. BALLOON DILATION A Balloon catheter Euphora RX 2.0 x12 #[id number] was inserted and inflated up to 10.00atm for 19seconds. Additional Inflation: 12.00atm for 18seconds. UNABLE TO CROSS LESION WITH STENT, REMOVED STENT DELIVERY SYS., WENT IN WITH 2.5X12 EUPHORIA BALLOON INFLATED 14ATM FOR 30SEC. STENT DEPLOYMENT A drug-eluting stent RESOLUTE RX 3.0 X 12 #[id number] was inserted and inflated up to 14.00atm for 15seconds. POST STENT DEPLOYMENT BALLOON DILATION [facility] [address] [place] [address] INVASIVE PROCEDURE REPORT Name: TIAN BERNARD PAGE Room #: 246-P [facility] IN M.R.#: [id number] Admission: 04/04/18 Attend Phys: Paulino Bosch MD Discharge: Date of : 49 Date of Service: 04/04/18 1637 Report #: [id number] A Balloon catheter TREK NC RX 3.0 X 8 #[id number] was inserted and inflated up to 18.00atm for 17seconds. Additional Inflation: 18.00atm for 12seconds. Final angiography reveals 0 % stenosis with LIVIER 3 flow. PCI Technique Lesion Anticoagulation was achieved with Angiomax. Patient was preloaded with Effient. Percutaneous coronary intervention was performed on the mid left anterior descending artery segment. The lesion stenosis prior to intervention was 80% with LIVIER 3 flow. A Guide Catheter was used to engage the LCA ostium. A Luge Wire .014 x 182CM #[id number] Interventional Guidewire was used to cross the lesion. BALLOON DILATION A Balloon catheter Euphora RX 2.0 x12 #[id number] was inserted and inflated up to 12.00atm for 18seconds. STENT DEPLOYMENT A drug-eluting stent RESOLUTE RX 2.5 X 12 #[id number] was inserted and inflated up to 14.00atm for 30seconds. POST STENT DEPLOYMENT BALLOON DILATION A Balloon catheter Euphora NC RX 2.75 x 8 #[id number] was inserted and inflated up to 18.00atm for 12seconds. Final angiography reveals 5 % stenosis with LIVIER 3 flow. PCI Technique Lesion 2 Percutaneous Coronary Intervention was performed on the second diagonal branch segment. Patient was preloaded with Effient. Percutaneous coronary intervention was performed on the second diagonal branch segment. The lesion stenosis prior to intervention was 70% with LIVIER 3 flow. A VISTA 6FR XB 3.5 #341930 Guide Catheter was used to engage the LCA ostium. A Whisper Wire .014 x 190 #384825 Interventional Guidewire was used to cross the lesion. Balloon Dilation A Balloon catheter Euphora RX 2.0 x 10 #[id number] was inserted and inflated up to 8.00atm for 22seconds. Additional Inflation: 8.00atm for 30seconds. Final angiography reveals 40 % stenosis with LIVIER 3 flow. PCI Technique Lesion 3 Percutaneous Coronary Intervention was performed on the mid left [facility] [address] [place] [address] INVASIVE PROCEDURE REPORT Name: TIAN BERNARD PAGE Room #: 246-P [facility] IN M.R.#: [id number] Admission: 04/04/18 Attend Phys: Paulino Bosch MD Discharge: Date of : 49 Date of Service: 04/04/181636 Report #: [id number] anterior descending artery segment. A VISTA 6FR XB 3.5 #905514 Guide Catheter was used to engage the ostium. A Luge Wire .014 x 182CM #436898 Interventional Guidewire was used to cross the lesion. Stent Deployment A drug-eluting stent RESOLUTE RX 2.5 X 12 #[id number] was inserted and inflated up to 12.00atm for 19seconds. Post Stent Deployment Balloon Dilation A Balloon catheter Euphora NC RX 2.75 x 8 #[id number] was inserted and inflated up to 16.00atm for 18seconds. Additional Inflation: 18.00atm for 13seconds. Conclusion 1. Successful insertion of drug-eluting stents into the proximal and mid segments of the LAD. 2. Successful balloon angioplasty of a jailed second diagonal artery, through the LAD stent strut. 3. Recommend dual antiplatelet therapy. <ELECTRONICALLY SIGNED> By: Paulino Bosch MD 04/04/18 1637 36 1637 Paulino Bosch MD /YG
[~2018-04-04 08:36] MED LIST changes: -ATENOLOL 25 MG25 M1 PO; -COZAAR 50 MG TA50 M1 PO; -EFFIENT10 MG PO; -K-DUR 20 MEQ T20 MEQ PO; -LASIX 40 MG TAB40 M2 PO; -MAXZIDE-25 MG1 EACH PO; -POTASSIUM20 PO; -ROBITUSSIN100 MG/53 PO
[2018-04-04 09:09] LABS: HEMOGLOBIN 12.2 gm/dL (12.0-15.0); MCH 30.3 pg (26.0-34.0); MCHC 32.9 g/dL (28.0-37.0); RBC 4.03 mil/uL (4.20-5.00); RDW 13.9 % (10.5-14.5); WBC 9.2 thou/uL (4.0-11.0)
[2018-04-04 09:19] LABS: CALCIUM 9.1 mg/dL (8.5-10.1); CREATININE 1.1 mg/dL (0.6-1.0); POTASSIUM 3.5 mmol/L (3.5-5.1)
[2018-04-04] MEDS ORDERED: ROBITUSSIN100 MG/53 PO (10:11)
[2018-04-04] MEDS ORDERED: MAXZIDE-25 MG1 EACH PO (10:19)
[2018-04-04 15:17] LABS: CALCIUM 8.6 mg/dL (8.5-10.1); CREATININE 0.9 mg/dL (0.6-1.0); MAGNESIUM 1.7 mg/dL (1.8-2.4)
[2018-04-04 15:19] LABS: POTASSIUM 2.8 mmol/L (3.5-5.1)
[2018-04-05] VITALS (9 sets, daily range): BP systolic 11–129; BP diastolic 53–6475
[2018-04-05 00:30] LABS: MAGNESIUM 1.8 mg/dL (1.8-2.4)
[2018-04-05 05:27] LABS: HEMATOCRIT 36.7 % (37.0-47.0); HEMOGLOBIN 12.4 gm/dL (12.0-15.0); MCH 30.6 pg (26.0-34.0); MCHC 33.7 g/dL (28.0-37.0); MCV 90.6 fL (80.0-100.0); RBC 4.05 mil/uL (4.20-5.00); WBC 12.7 thou/uL (4.0-11.0)
[2018-04-05 05:30] LABS: ALBUMIN 3.1 g/dL (3.4-5.0); CALCIUM 8.8 mg/dL (8.5-10.1); CREATININE 1.2 mg/dL (0.6-1.0); POTASSIUM 3.9 mmol/L (3.5-5.1); TOTAL BILIRUBIN 0.8 mg/dL (<0.1-1.0); TOTAL PROTEIN 7.4 g/dL (6.4-8.2)
[2018-04-05 05:31] LABS: TROPONIN-I 1.72 ng/mL (<0.06)
[2018-04-06] VITALS (7 sets, daily range): BP systolic 100–137; BP diastolic 48–77
[2018-04-06 04:32] LABS: CALCIUM 8.5 mg/dL (8.5-10.1); CREATININE 1.6 mg/dL (0.6-1.0)
[2018-04-06 04:40] LABS: POTASSIUM 2.8 mmol/L (3.5-5.1)
[2018-04-07 03:46] LABS: CALCIUM 8.4 mg/dL (8.5-10.1); CREATININE 1.5 mg/dL (0.6-1.0); POTASSIUM 3.6 mmol/L (3.5-5.1)
[2018-04-07 04:00] VITALS: BP 160/62
[2018-04-07 04:45] VITALS: BP 119/52
[2018-04-07 07:12] VITALS: BP 95/54
[2018-04-07] MEDS ORDERED: XARELTO20 MG PO (08:16)
[2018-04-07] MEDS ORDERED: EFFIENT10 MG PO (08:16)
[2018-04-07] MEDS ORDERED: K-DUR 20 MEQ T20 MEQ PO (08:18)
[2018-04-07] MEDS ORDERED: LASIX 40 MG TAB40 M2 PO (08:19)
[2018-04-07] MEDS ORDERED: ATENOLOL 25 MG25 M1 PO (08:20)
[2018-04-07] MEDS ORDERED: COZAAR 50 MG TA50 M1 PO (08:20)
[2018-04-07] MEDS ORDERED: POTASSIUM20 PO (08:25)
[2018-04-07 12:35] VITALS: BP 95/54
[2018-04-07 12:36] VITALS: BP 95/54
== END 2018-04-07 13:22 | disposition home or self-care (01) | DRG 246 ==
LOC: CATH 08:36 → ICU 08:49 → CATH 11:03 → ICU 13:30 → 2N 13:30 → ENTRNSPT 04-07 12:48 → EDTRNSPTSTS 04-07 13:15 → 2N 04-07 13:22
PROVIDERS: Internal Medicine Cardiovascular Disease
DX: I25.110 Atherosclerotic heart disease of native coronary artery with unstable angina pectoris (principal); I50.33 Acute on chronic diastolic (congestive) heart failure; Z68.43 Body mass index [BMI] 50.0-59.9, adult; I82.409 Acute embolism and thrombosis of unspecified deep veins of unspecified lower extremity; I48.0 Paroxysmal atrial fibrillation; M19.90 Unspecified osteoarthritis, unspecified site; I11.0 Hypertensive heart disease with heart failure; E66.9 Obesity, unspecified; E78.5 Hyperlipidemia, unspecified; R06.03 Acute respiratory distress; E78.00 Pure hypercholesterolemia, unspecified; G89.4 Chronic pain syndrome; Z79.899 Other long term (current) drug therapy; Z79.82 Long term (current) use of aspirin
CPT/HCPCS: 10078; 10081

== ENCOUNTER → 2018-06-02 | Outpatient (CLI) | payer OTHER ==
[~2018-06-02] VITALS: Ht 152.4 cm; Wt 109.3 kg
[~2018-06-02] MED LIST changes: +ATENOLOL 25 MG25 M1 PO; +COZAAR 50 MG TA50 M1 PO; +EFFIENT10 MG PO; +K-DUR 20 MEQ T20 MEQ PO; +LASIX 40 MG TAB40 M2 PO; +LOSARTAN POTASS50 MG PO; +MAALOX ADVANCE355 ML PO; +MAXZIDE-25 MG1 EACH PO; +POTASSIUM20 PO; +ROBITUSSIN100 MG/53 PO
--- NOTE | ~2018-06-02 | P ---
[facility] [place] [address] PROCEDURE REPORT Name: TIAN BERNARD [place] Room #: REG [facility]ake[facility]icia[facility]akeisha#: [id number] Admission: 06/02/18 Attend Phys: Shailesh Ennis MD Discharge: Date of : 49 Report #: [id number] THIS REPORT FOR: //name// CC: FAM unknown Shailesh SHARMA DATE OF SERVICE: 06/02/2018 MEDICATIONS: Deep sedation per anesthesia. SPECIMEN: Biopsies of gastritis. ESTIMATED BLOOD LOSS: 3 mL PROCEDURE: Esophagogastroduodenoscopy with biopsy. FINDINGS: Prior to propofol sedation, procedure of upper endoscopy discussed with the patient as well as potential risks and its complications. She indicates she understands and desires to proceed. DESCRIPTION OF PROCEDURE: With the patient in left decubitus position, the Olympus video endoscope was inserted in the cervical esophagus under direct vision without difficulty. Examination of this organ through its entire length revealed normal esophageal mucosa down the squamocolumnar junction. The squamocolumnar junction was inspected and noted to be unremarkable. No evidence of ulcers, erosions or significant hiatus hernia. The scope was advanced fully into the stomach, was examined on end view as well as retroflexed views. There was bilious material in the stomach. There was diffuse gastritis. The mucosa was intact without ulcers or erosions. Upon retroflexion, no mass lesions were seen. The bilious material was aspirated from the stomach. The pylorus was unremarkable. Examination of duodenal bulb revealed what appeared to be vegetable material in the duodenal bulb, but upon observation, they remained in the duodenal bulb and did not appear to pass into the distal duodenum. It partially obscured the view of the duodenum, so with biopsy forceps, 2 of the larger pieces were pulled back into the stomach. Upon inspection, it was initially thought to possibly be 2 pieces of plastic material. They were stained with bile. One of them was removed with Abreu Net and withdrawn. Upon visual inspection, appeared to be food material rather than a plastic material. The scope was reintroduced and examination of duodenal bulb revealed a 5-6 mm moderately deep ulcer just inside the pyloric channel. Otherwise, the duodenal bulb was unremarkable. There is some mild edema of the folds at the junction of the bulb and second portion of the duodenum. Definite ulcer was not seen. Multiple passes were made through this area. Beyond this region, the mucosa was within normal limits, normal vascular pattern, normal light reflex. At that point, the scope was slowly withdrawn and careful circumferential views [facility] [address] [place] [address] PROCEDURE REPORT Name: TIAN BERNARD PAGE Room #: REG CLShaista Renetta#: [id number] Admission: 06/02/18 Attend Phys: Shailesh Ennis MD Discharge: Date of : 49 Report #: [id number] confirmed the above finding. Biopsies obtained of the gastritis, and the patient tolerated the procedure well. DISPOSITION: The patient with abdominal pain. She clearly has a duodenal ulcer. She does take an aspirin daily. We will follow up on biopsies with regard to H. pylori status. If positive, she may benefit from antibiotic treatment. The patient reports that she did develop diarrhea with one of the PPIs in the past. She does not recall the name. We will treat her with ranitidine 300 mg twice daily for 6 weeks. If she continues to have pain, she is to return to see us in followup in the office. Pain continued to be a problem. Addition of sucralfate may be helpful due to the retained bile in the stomach. She is to return to care of Darby Goode and return to see me as needed. <ELECTRONICALLY SIGNED> By: Shailesh Ennis MD 06/03/18 1122 1156 0115 Shailesh Ennis MD /nt
--- NOTE | ~2018-06-02 | PATH ---
[facility] [address] [place] [address] PATHOLOGY RPT PROCEDURE Name: CHRISSY PAGE Room #: REG [facility] [place]#: [id number] Admission: 06/02/18 Date of : 49 Discharge: Report #: [id number] Path Case #: [id number] LCA Accession Number: [id number] . 01 Material submitted: . BX GASTRITIS R/O H. PYLORI . 01 Clinical history: . Pre-OP DX: Epigastric pain Post-OP DX: Duodenal ulcer, gastritis, small hiata hernia . 02 Diagnosis: "BX gastritis R/O H. pylori", biopsy: - Gastric antral-type mucosa with mild reactive/regenerative changes and mild chronic inflammation. - Negative H. pylori immunohistochemical stain (block A1); control reacted appropriately. . (WILLIAM:vicente;06/03/2018) AGA/06/03/2018 . 02 Electronically signed: . Denise Marsh MD, Pathologist NPI- [id number] . 01 Gross description: . Received in formalin labeled "Chrissy Bernard, BX gastritis, rule out H. pylori," are 3 segments of [place]atham soft tissue measuring 1.0 x 0.9 x 0.3 cm in aggregate dimensions and ranging from 0.3 to 0.7 cm in maximum dimension. The specimen is submitted entirely in cassette A1. (TSD; 06/02/2018) TOB/TOB . 02 Pathologist provided ICD-10: K29.50 . 02 CPT . 790298, Q16945 Specimen Comment: A courtesy copy of this report has been sent to Specimen Comment: [phone]. Specimen Comment: Report sent to Performed at: [address] [id number] MD Anibal Sainz MD Phone: [phone] Performed at: [address] [facility] [address] [place] [address] PATHOLOGY RPT PROCEDURE Name: CHRISSY BERNARD PAGE Room #: REG [facility] [place]#: [id number] Admission: 06/02/18 Date of : 49 Discharge: Report #: [id number] Path Case #: [id number] [address] [place], [place] [id number] MD Gale Ruiz MD Phone: [phone]
== END | disposition home or self-care (01) ==
LOC: GI 08:49
DX: K29.50 Unspecified chronic gastritis without bleeding (principal); K26.9 Duodenal ulcer, unspecified as acute or chronic, without hemorrhage or perforation; K44.9 Diaphragmatic hernia without obstruction or gangrene; I11.0 Hypertensive heart disease with heart failure; I50.30 Unspecified diastolic (congestive) heart failure; E78.5 Hyperlipidemia, unspecified; E03.9 Hypothyroidism, unspecified; M19.90 Unspecified osteoarthritis, unspecified site; K21.9 Gastro-esophageal reflux disease without esophagitis; Z90.49 Acquired absence of other specified parts of digestive tract; Z90.711 Acquired absence of uterus with remaining cervical stump; Z86.711 Personal history of pulmonary embolism; Z79.01 Long term (current) use of anticoagulants; Z87.891 Personal history of nicotine dependence; Z79.82 Long term (current) use of aspirin; Z87.19 Personal history of other diseases of the digestive system; Z79.899 Other long term (current) drug therapy
CPT/HCPCS: 62110; 62900

== ENCOUNTER → 2018-06-17 | Outpatient (CLI) | payer OTHER ==
[~2018-06-17] VITALS: Ht 152.4 cm; Wt 106.9 kg
[~2018-06-17] MED LIST changes: +RANITIDINE HCL300 MG PO
--- NOTE | ~2018-06-17 | HPC ---
[facility] [place] [address] PAIN MANAGEMENT CONSULTATION Name: TIAN BERNARD PAGE Room #: REG ASADShaista Jackson#: [id number] Admission: 06/17/18 Attend Phys: Roseline Martin Discharge: Date of : 47 Report #: [id number] THIS REPORT FOR: //name// CC: Roseline Martin Physician staff TELL KALINA aBe MD DATE OF SERVICE: 06/17/2018 CHIEF COMPLAINT: Bilateral knee pain and hand pain. HISTORY OF PRESENT ILLNESS: This is a 73-year-old female who has been followed in the pain clinic by Dr. Barrera in the past, treated for her degenerative joint disease in her knees and hands bilaterally. The patient takes methadone 10 mg 3 times a day for this pain, finds that it is helpful. She states lately that she has had some increased pain in her hands, was hoping for an increase of her methadone today. The patient also tells me that she saw the Orthopedic and tells her it is [id number] on her thumb and has been using her Voltaren gel, but it has not been as effective as it used to be. The patient also tells me that on 04/04/2018, she was taken to the hospital and had 2 stents placed in her heart, is now on Effient and Xarelto blood thinners. Then 2 weeks ago she started having stomach pain, upper stomach, requiring her to take methadone at night. She tells me that her pain was waking her up. She did go back to the doctor and had an upper GI done. She was noted to have an ulcer in her small intestine and started on Zantac. She tells me that her pain has slowly improved at this time in that area. ALLERGIES: ANCEF. CURRENT LIST OF MEDICATIONS: Potassium 20 mEq daily, Lasix 40 mg once a day, Zantac 300 mg twice a day, Maalox as needed, Xarelto 20 mg, Effient 10 mg daily, losartan 50 mg daily, Voltaren gel 1% up to 4 times a day, Tenormin 25 mg daily, methadone 10 mg 1 tablet 3 times a day, aspirin 81 mg, Breo daily, multivitamin, Colace, Prozac 10 mg at bedtime, Lipitor 80 mg at bedtime, Synthroid 137 mg daily. PQRS: 1. The patient has a history of osteoarthritis in her hands and knees bilaterally. Denies rheumatoid arthritis. 2. Height 5 feet 0 inches, weight 235, BMI is 46. 3. Vital signs: Blood pressure 123/75, pulse is 70, respirations 16, oxygen sat is 95%. 4. Pain score of 4/10 today. 5. The patient denies dizziness. Does not need help walking or standing and has not fallen in the last 3 [place] [address] PAIN MANAGEMENT CONSULTATION Name: TIAN BERNARD PAGE Room #: REG ASCENCION Jackson#: [id number] Admission: 06/17/18 Attend Phys: Roseline Martin Discharge: Date of : 47 Report #: [id number] 6. The patient's blood thinners are Xarelto and Effient. 7. History of high blood pressure is present. 8. Her opioid therapy is greater than 6 weeks, therefore she is on an opioid signed contract. 9. Her risk assessment is low. Her functional assessment is 37/70. 10. Recreational drug use, the patient denies. She states she is a former smoker and does not use any alcohol. We checked the [facility] drug monitoring system and found that the patient has been filling her methadone only from our prescribers and at [facility], no deviation has been noted on this. The patient also has a current drug screen on the chart. We will recheck that at the next year. PHYSICAL EXAMINATION: GENERAL: The patient is a well-developed, well-nourished white female, appears her stated age. She is alert and oriented. HEENT: Normocephalic, atraumatic. Extraocular eye muscles are intact. NECK: Good range of motion without JVD. EXTREMITIES: The patient does have antalgic gait. Lower extremity strength to be slightly diminished. Upper extremity strength to be diminished. Nodules in her hands present with her arthritis. IMPRESSION: 1. Chronic osteoarthritis, bilateral knees and hands. 2. Morbid obesity. 3. Atrial fibrillation. 4. Cardiac stent placement. 5. History of pulmonary embolism. 6. Hypertension. 7. Hypothyroidism. 8. Pulmonary embolism history. 9. Diverticulosis. 10. Blood clot in her heart. 11. Small intestine ulcer. We reviewed the fact that opiate medications are being used to provide analgesia adequate to support activities of daily living, not attempting to achieve a specific pain score on the 0-10 Visual Analog Scale. The current opiate medications are providing sufficient analgesia to allow the patient to participate in activities of daily living. The patient is not exhibiting any aberrant behavior suggestive of drug diversion. The patient is not having any adverse reactions to medications. The patient is not suffering from daytime somnolence or mental acuity changes. The patient is managing opiate-induced constipation with appropriate [id number]-vls-[id number] agents and dietary considerations. The patient was counseled on concern for caution with operating a motor vehicle while using opiate medications. [facility] [address] [place] [address] PAIN MANAGEMENT CONSULTATION Name: TIAN BERNARD PAGE Room #: [facility]#: [id number] Admission: 06/17/18 Attend Phys: Roseline FARIA Matildejax Discharge: Date of : 47 Report #: [id number] A physical exam was performed and the patient's functional status was evaluated. All patients with back pain were advised against the bed rest greater than 4 days and were advised to return to normal activities. Pain score assessment was noted and the treatment plan was reviewed with the patient. All current medications, both prescribed and OTC were reviewed and reconciled on the electronic medical record. Tobacco screening was accomplished and smoking cessation was advised when indicated. BMI was noted and diet/exercise modification was recommended for all patients following outside normal parameters. I reviewed with the patient today their responsibilities to safeguard prescription medications, reviewed their responsibility to utilize medications only as prescribed by the physician. They are to seek and receive pain medications only from 1 physician group ( [facility]). They are to use 1 pharmacy and keep the clinic informed if they change pharmacies. Their responsibilities include making followup visits in a timely fashion and to avoid abrupt discontinuation of medication usage. Their responsibilities further include bringing their medications (bottles from the pharmacy with residual pills) to the visit for possible confirmation of pill counts and the patient understands it is their responsibility to submit to random drug screens to ensure both that the medications prescribed are present, and that no other controlled substances are present. All prescriptions provided today were generated electronically. PLAN: 1. The patient was seen in followup visit today for refill of her opioid medications. The patient was currently taking methadone 3 times a day. The patient was hopeful to have this increased to 4 tablets a day due to recent upper gastric pain and increasing hand pain. I discussed with the patient the CDC guidelines of 90 mEq of morphine a day due to methadone's high conversion rate of 4, that puts her at 240 MME per day. I explained to the patient that 90 is the goal, 50 is the true goal to 90 by the CDC guidelines, so unfortunately we were unable to increase her medicines today. I encouraged the patient to use heating pad and her Voltaren gel on her hands, that may hopefully aid in the reduction of pain at that time there and also with the new medicine, Zantac, for her upper gastric pain that pain will continue to decrease. 2. We did discuss possible opiate rotation to morphine. The patient has not been on this medicine in the past. We discussed that sometimes opioid rotation is beneficial in helping reset the receptors for the patient's pain. The patient is open to this idea at the next visit if we decide to go that route. 3. The patient was given 1 month of methadone 10 mg #90. The patient asked if [address] [address] PAIN MANAGEMENT CONSULTATION Name: BISHOPTIAN PAGE Room #: REG ASCENCION Jackson#: [id number] Admission: 06/17/18 Attend Phys: Roseline Martin Discharge: Date of : 47 Report #: [id number] that could be filled today. I told her it looks like she filled the last one on 05/27/2018, she tells me that she still has medicine in her possession and is not needed today, but was wondering. So I told our scripts are 30 days, so she would be due at the end of next week for her methadone fill. 4. The patient was given a 1 month appointment to follow up. At that time, we will discuss either the opioid rotation or keep her on her methadone and see her on monthly visits due to the guidelines set by the physicians group of high dose opioids on a monthly basis. The patient is agreeable with this plan. The patient was seen in collaboration with Dr.Wayne West today. <ELECTRONICALLY SIGNED> By: Roseline Martin 06/20/18 0720 [id number] Roseline Martin /nt
[2018-06-17 10:52] VITALS: BP 123/75
== END ==
LOC: PAIN 06:49
DX: M25.561 Pain in right knee (principal); M25.562 Pain in left knee; M79.642 Pain in left hand; M79.641 Pain in right hand; M17.0 Bilateral primary osteoarthritis of knee; M19.042 Primary osteoarthritis, left hand; M19.041 Primary osteoarthritis, right hand; I48.91 Unspecified atrial fibrillation; I10 Essential (primary) hypertension; E03.9 Hypothyroidism, unspecified; K63.3 Ulcer of intestine; I23.6 Thrombosis of atrium, auricular appendage, and ventricle as current complications following acute myocardial infarction; E66.01 Morbid (severe) obesity due to excess calories; Z95.5 Presence of coronary angioplasty implant and graft; Z86.711 Personal history of pulmonary embolism

== ENCOUNTER → 2018-07-20 | Outpatient (CLI) | payer OTHER ==
[~2018-07-20] VITALS: Ht 152.4 cm; Wt 105.9 kg
[2018-07-20 10:34] VITALS: BP 144/87
== END ==
LOC: PAIN 09:36
DX: M25.561 Pain in right knee (principal); M25.562 Pain in left knee; M79.642 Pain in left hand; M79.641 Pain in right hand; I10 Essential (primary) hypertension

== ENCOUNTER → 2018-08-19 | Outpatient (CLI) | payer OTHER ==
[~2018-08-19] VITALS: Ht 152.4 cm; Wt 100.2 kg
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
[2018-08-19 14:09] VITALS: BP 136/78
--- NOTE | 2018-08-19 14:18 | NUR ---
Pain Clinic Assessment: 1. History of Osteoarthritis: KNEES History of Rheumatoid Arthritis: NO 2. Height: 5 ft. 0 in. 152.4 cm. Weight: 221.0 lb. oz. 100.245 kg. Patient's BMI: 43.2 3. Vital Signs: BP: 136/78 Pulse: 63 Resp: 16 Temp: 02 Sat: 96 ECG Mon: 4. Pain Intensity: 5 5. Fall Risk: Dizziness: N Needs help standing or walking: Y Fallen in the last 3 months: N Fall risk comments: 6. Patient on Blood Thinner: XARELTO 7. History of Hypertension: Y 8. Opioid Therapy greater than 6 weeks: Y Opiate Contract Signed: 06/05/15 9. Risk Assessment Tool Provided: 1 10. Functional Assessment Tool: 37 11. Recreational Drug Use: Never Drug Type: Tobacco Use: Former Smoker Tobacco Type: Amount or Packs/day: How Many Years: Alcohol Use: No Frequency: Quant:
== END ==
LOC: PAIN 07:21
DX: M17.0 Bilateral primary osteoarthritis of knee (principal); S82.92XA Unspecified fracture of left lower leg, initial encounter for closed fracture; E66.01 Morbid (severe) obesity due to excess calories; I48.91 Unspecified atrial fibrillation; I10 Essential (primary) hypertension; E03.9 Hypothyroidism, unspecified; E78.5 Hyperlipidemia, unspecified; R06.02 Shortness of breath; K57.30 Diverticulosis of large intestine without perforation or abscess without bleeding; I26.99 Other pulmonary embolism without acute cor pulmonale; I23.6 Thrombosis of atrium, auricular appendage, and ventricle as current complications following acute myocardial infarction; Z79.899 Other long term (current) drug therapy; Z95.5 Presence of coronary angioplasty implant and graft; Z68.41 Body mass index [BMI] 40.0-44.9, adult; V89.2XXA Person injured in unspecified motor-vehicle accident, traffic, initial encounter; Y93.89 Activity, other specified; Y92.89 Other specified places as the place of occurrence of the external cause; Y99.8 Other external cause status

== ENCOUNTER → 2018-09-16 | Outpatient (CLI) | payer OTHER ==
[~2018-09-16] VITALS: Ht 152.4 cm; Wt 100.2 kg
[2018-09-16 14:08] VITALS: BP 142/73
--- NOTE | 2018-09-16 14:13 | NUR ---
Pain Clinic Assessment: 1. History of Osteoarthritis: KNEES HANDS SHOULDERS History of Rheumatoid Arthritis: NO 2. Height: 5 ft. 0 in. 152.4 cm. Weight: 221.0 lb. oz. 100.245 kg. Patient's BMI: 43.2 3. Vital Signs: BP: 142/73 Pulse: 57 Resp: 16 Temp: 02 Sat: 99 ECG Mon: 4. Pain Intensity: 3 5. Fall Risk: Dizziness: N Needs help standing or walking: N Fallen in the last 3 months: N Fall risk comments: 6. Patient on Blood Thinner: XARELTO 7. History of Hypertension: Y 8. Opioid Therapy greater than 6 weeks: Y Opiate Contract Signed: 06/05/15 9. Risk Assessment Tool Provided: 1 10. Functional Assessment Tool: 37 11. Recreational Drug Use: Never Drug Type: Tobacco Use: Former Smoker Tobacco Type: Amount or Packs/day: How Many Years: Alcohol Use: No Frequency: Quant:
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
== END ==
LOC: PAIN 07:22
DX: M17.0 Bilateral primary osteoarthritis of knee (principal); S82.892A Other fracture of left lower leg, initial encounter for closed fracture; I48.91 Unspecified atrial fibrillation; I10 Essential (primary) hypertension; E03.9 Hypothyroidism, unspecified; E78.5 Hyperlipidemia, unspecified; E66.01 Morbid (severe) obesity due to excess calories; K57.30 Diverticulosis of large intestine without perforation or abscess without bleeding; I21.9 Acute myocardial infarction, unspecified; R06.02 Shortness of breath; Z68.41 Body mass index [BMI] 40.0-44.9, adult; Z79.899 Other long term (current) drug therapy; Z86.711 Personal history of pulmonary embolism; V89.2XXA Person injured in unspecified motor-vehicle accident, traffic, initial encounter; Y93.89 Activity, other specified; Y92.89 Other specified places as the place of occurrence of the external cause; Y99.8 Other external cause status

== ENCOUNTER → 2018-10-14 | Outpatient (CLI) | payer OTHER ==
[~2018-10-14] VITALS: Ht 152.4 cm; Wt 98.5 kg
[2018-10-14 13:15] VITALS: BP 162/63
--- NOTE | 2018-10-14 13:20 | NUR ---
Pain Clinic Assessment: 1. History of Osteoarthritis: KNEES HANDS SHOULDERS History of Rheumatoid Arthritis: NO 2. Height: 5 ft. 0 in. 152.4 cm. Weight: 217.2 lb. oz. 98.521 kg. Patient's BMI: 42.4 3. Vital Signs: BP: 162/63 Pulse: 57 Resp: 16 Temp: 02 Sat: 96 ECG Mon: 4. Pain Intensity: 6 5. Fall Risk: Dizziness: N Needs help standing or walking: Y Fallen in the last 3 months: N Fall risk comments: 6. Patient on Blood Thinner: XARELTO 7. History of Hypertension: Y 8. Opioid Therapy greater than 6 weeks: Y Opiate Contract Signed: 06/05/15 9. Risk Assessment Tool Provided: LOW RISK 2/3 10. Functional Assessment Tool: 11. Recreational Drug Use: Never Drug Type: Tobacco Use: Former Smoker Tobacco Type: Amount or Packs/day: How Many Years: Alcohol Use: No Frequency: Quant:
== END ==
LOC: PAIN 07:00
DX: M25.561 Pain in right knee (principal); M25.562 Pain in left knee; M79.642 Pain in left hand; M79.641 Pain in right hand; R20.2 Paresthesia of skin; Z87.891 Personal history of nicotine dependence; Z79.899 Other long term (current) drug therapy

== ENCOUNTER → 2018-11-11 | Outpatient (CLI) | payer OTHER ==
[~2018-11-11] VITALS: Ht 152.4 cm; Wt 96.6 kg
[~2018-11-11] MED LIST changes: +VITAMIN D1000 UNI1 PO
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
[2018-11-11 11:12] VITALS: BP 158/73
== END ==
LOC: PAIN 10-14 13:32
DX: S82.92XA Unspecified fracture of left lower leg, initial encounter for closed fracture (principal); M13.862 Other specified arthritis, left knee; M13.861 Other specified arthritis, right knee; M79.641 Pain in right hand; M79.642 Pain in left hand; I48.91 Unspecified atrial fibrillation; E03.9 Hypothyroidism, unspecified; E78.5 Hyperlipidemia, unspecified; I11.0 Hypertensive heart disease with heart failure; I50.9 Heart failure, unspecified; E66.01 Morbid (severe) obesity due to excess calories; K57.30 Diverticulosis of large intestine without perforation or abscess without bleeding; I23.6 Thrombosis of atrium, auricular appendage, and ventricle as current complications following acute myocardial infarction; Z95.5 Presence of coronary angioplasty implant and graft; Z68.41 Body mass index [BMI] 40.0-44.9, adult; Z79.899 Other long term (current) drug therapy; V89.2XXA Person injured in unspecified motor-vehicle accident, traffic, initial encounter; Y93.89 Activity, other specified; Y92.89 Other specified places as the place of occurrence of the external cause; Y99.8 Other external cause status

== ENCOUNTER → 2018-12-09 | Outpatient (CLI) | payer OTHER ==
[~2018-12-09] VITALS: Ht 152.4 cm; Wt 95.7 kg
[~2018-12-09] MED LIST changes: +ERGOCALCIF50000 UNIT PO
[2018-12-09 10:25] VITALS: BP 125/50
--- NOTE | 2018-12-09 10:28 | NUR ---
Pain Clinic Assessment: 1. History of Osteoarthritis: KNEES HANDS SHOULDERS History of Rheumatoid Arthritis: NO 2. Height: 5 ft. 0 in. 152.4 cm. Weight: 211.0 lb. oz. 95.709 kg. Patient's BMI: 41.2 3. Vital Signs: BP: 125/50 Pulse: 72 Resp: 16 Temp: 02 Sat: 99 ECG Mon: 4. Pain Intensity: 5 5. Fall Risk: Dizziness: N Needs help standing or walking: N Fallen in the last 3 months: N Fall risk comments: 6. Patient on Blood Thinner: XARELTO 7. History of Hypertension: Y 8. Opioid Therapy greater than 6 weeks: Y Opiate Contract Signed: 06/05/15 9. Risk Assessment Tool Provided: LOW RISK 2 10. Functional Assessment Tool: 11. Recreational Drug Use: Never Drug Type: Tobacco Use: Former Smoker Tobacco Type: Amount or Packs/day: How Many Years: Alcohol Use: No Frequency: Quant:
== END ==
LOC: PAIN 06:40
DX: G89.29 Other chronic pain (principal); M25.561 Pain in right knee; M25.562 Pain in left knee; M79.641 Pain in right hand; M79.642 Pain in left hand; Z79.891 Long term (current) use of opiate analgesic

== ENCOUNTER → 2019-01-06 | Outpatient (CLI) | payer OTHER ==
[~2019-01-06] VITALS: Ht 152.4 cm; Wt 98.0 kg
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
[2019-01-06 11:35] VITALS: BP 147/74
--- NOTE | 2019-01-06 11:38 | NUR ---
Pain Clinic Assessment: 1. History of Osteoarthritis: KNEES HANDS SHOULDERS History of Rheumatoid Arthritis: NO 2. Height: 5 ft. 0 in. 152.4 cm. Weight: 216.0 lb. oz. 97.977 kg. Patient's BMI: 42.2 3. Vital Signs: BP: 147/74 Pulse: 64 Resp: 16 Temp: 02 Sat: 100 ECG Mon: 4. Pain Intensity: 7 5. Fall Risk: Dizziness: N Needs help standing or walking: N Fallen in the last 3 months: N Fall risk comments: 6. Patient on Blood Thinner: XARELTO 7. History of Hypertension: Y 8. Opioid Therapy greater than 6 weeks: Y Opiate Contract Signed: 06/05/15 9. Risk Assessment Tool Provided: LOW RISK 2 10. Functional Assessment Tool: 11. Recreational Drug Use: Never Drug Type: Tobacco Use: Former Smoker Tobacco Type: Amount or Packs/day: How Many Years: Alcohol Use: No Frequency: Quant:
== END ==
LOC: PAIN 06:50
DX: Z76.0 Encounter for issue of repeat prescription (principal); M17.0 Bilateral primary osteoarthritis of knee; I48.91 Unspecified atrial fibrillation; I10 Essential (primary) hypertension; E03.9 Hypothyroidism, unspecified; E78.5 Hyperlipidemia, unspecified; E66.01 Morbid (severe) obesity due to excess calories; Z95.818 Presence of other cardiac implants and grafts; Z79.899 Other long term (current) drug therapy

== ENCOUNTER → 2019-02-01 | Outpatient (CLI) | payer OTHER ==
[~2019-02-01] VITALS: Ht 152.4 cm; Wt 98.3 kg
[2019-02-01 12:59] VITALS: BP 134/92
--- NOTE | 2019-02-01 13:13 | NUR ---
Pain Clinic Assessment: 1. History of Osteoarthritis: KNEES HANDS SHOULDERS History of Rheumatoid Arthritis: NO 2. Height: 5 ft. 0 in. 152.4 cm. Weight: 216.8 lb. oz. 98.340 kg. Patient's BMI: 42.3 3. Vital Signs: BP: 134/92 Pulse: 72 Resp: 18 Temp: 02 Sat: 100 ECG Mon: 4. Pain Intensity: 6 5. Fall Risk: Dizziness: N Needs help standing or walking: Y Fallen in the last 3 months: N Fall risk comments: 6. Patient on Blood Thinner: XARELTO 7. History of Hypertension: Y 8. Opioid Therapy greater than 6 weeks: Y Opiate Contract Signed: 06/05/15 9. Risk Assessment Tool Provided: LOW RISK 2 10. Functional Assessment Tool: 11. Recreational Drug Use: Never Drug Type: Tobacco Use: Former Smoker Tobacco Type: Amount or Packs/day: How Many Years: Alcohol Use: No Frequency: Quant:
--- NOTE | 2019-02-02 07:31 | HPC ---
[facility] [address] [place] [address] PAIN MANAGEMENT CONSULTATION Name: TIAN PAGE Room #: REG ASADShaista Jackson#: [id number] Admission: 02/01/19 ������������������ Attend Phys: Roseline Martin Discharge: ������������������ Date of : 47 Report #: [id number] THIS REPORT FOR: //name// CC: Roseline Martin [facility] physician/PCP TELL JUANITANING DATE OF SERVICE: 02/01/2019 CHIEF COMPLAINT: Bilateral hands and knee pain. HISTORY OF PRESENT ILLNESS: This is a pleasant 73-year-old female who returns to the pain clinic today for refill of her medications. She has chronic pain of osteoarthritis in her hands and her knees and today she is also complaining of some right shoulder pain. She tells me she recently had Synvisc injections in her knee. Last year, she had them as well that was more beneficial than the last injection and she thinks she is getting closer to needing knees replaced. She tells me today that also her right shoulder is hurting. She had torn her rotator cuff in the past, did not have surgery for this. She said it slowly got better over time, but now feels like it is more bothersome again. She tells me she does not want to have any surgery on it. She has been using some of her Voltaren gel and finds that somewhat effective. Her pain score today is 6/10. Walking, exercise and standing makes her pain worse. She does use a cane at all times for balance purposes. She tells me that the medication and resting and heat are helpful. I did ask her about constipation. She tells me that she uses a stool softener on a daily basis. ALLERGIES: ANCEF. CURRENT MEDICATIONS: Methadone 10 mg 3 times a day, Voltaren gel, vitamin D, Lasix, Zantac, Maalox, Xarelto, losartan, atenolol, aspirin, iron, calcium, Prozac, Lipitor, stool softener and Synthroid. CURRENT PQRS: 1. She has a history of osteoarthritis involving her knees and her hands. She is not being treated for rheumatoid arthritis. 2. Height is 5 feet, weight is 260, BMI is 42. 3. Vital signs: Blood pressure 134/92, pulse is 72, respirations 18, oxygen sat is 100. Pain score is 6/10. 4. Fall risk: Denies dizziness. She does need help walking. She uses a cane. She has not fallen in the last 3 months. 5. The patient takes Xarelto and medicines for hypertension. 6. Her opiate therapy is greater than 6 weeks; therefore, an opioid signed contract is on the chart. 7. Her risk assessment tool is low. Her functional assessment 27/70. 8. Recreational drug use, she denies. She is a former [place] [address] PAIN MANAGEMENT CONSULTATION Name: TIAN BERNARD PAGE Room #: REG ASCENCION Jackson#: [id number] Admission: 02/01/19 ������������������ Attend Phys: Roseline Martin Discharge: ������������������ Date of : 47 Report #: [id number] drink alcohol. We did check the prescription monitoring system. The patient is filling appropriately for her medications. She is due for those and there is a recent drug screen in the past year on her chart that is appropriate. PHYSICAL EXAMINATION: GENERAL: This is an alert and orientated obese white female. She appears her stated age. Her affect is appropriate. Her speech is fluent. HEENT: Normocephalic, atraumatic. Extraocular eye muscles are intact. Mucous membranes are moist. NECK: Without adenopathy or JVD. EXTREMITIES: Upper extremity strength judged to be 4/5 in major muscle groups, 4/5 in her lower extremities. She uses a cane for balance when walking. She needs the arm rest to move from sitting to standing position. She has an antalgic gait. She has tenderness in her right shoulder today. IMPRESSION: 1. Chronic osteoarthritis in her knees bilaterally. 2. History of atrial fibrillation with rapid ventricular response. 3. Cardiac stent placement. 4. Hypertension. 5. History of pulmonary edema, on Xarelto. 6. Morbid obesity. 7. Complex medical management under terms of written opioid agreement. We reviewed the fact that opiate medications are being used to provide analgesia adequate to support activities of daily living, not attempting to achieve a specific pain score on the 0-10 Visual Analog Scale. The current opiate medications are providing sufficient analgesia to allow the patient to participate in activities of daily living. The patient is not exhibiting any aberrant behavior suggestive of drug diversion. The patient is not having any adverse reactions to medications. The patient is not suffering from daytime somnolence or mental acuity changes. The patient is managing opiate-induced constipation with appropriate zefm-ahc-uklilus agents and dietary considerations. The patient was counseled on concern for caution with operating a motor vehicle while using opiate medications. A physical exam was performed and the patient's functional status was evaluated. All patients with back pain were advised against the bed rest greater than 4 days and were advised to return to normal activities. Pain score assessment was noted and the treatment plan was reviewed with the patient. All current medications, both prescribed and OTC were reviewed and reconciled on the electronic medical record. Tobacco screening was accomplished and smoking cessation was advised when indicated. BMI was noted and diet/exercise modification was recommended for all patients following outside normal [facility] [address] [place] [address] PAIN MANAGEMENT CONSULTATION Name: TIAN BERNARD PAGE Room #: REG ASCENCION Renetta#: [id number] Admission: 02/01/19 ������������������ Attend Phys: Roseline BIENVENIDO Martin Discharge: ������������������ Date of : 47 Report #: [id number] parameters. I reviewed with the patient today their responsibilities to safeguard prescription medications, reviewed their responsibility to utilize medications only as prescribed by the physician. They are to seek and receive pain medications only from 1 physician group ( [facility]). They are to use 1 pharmacy and keep the clinic informed if they change pharmacies. Their responsibilities include making followup visits in a timely fashion and to avoid abrupt discontinuation of medication usage. Their responsibilities further include bringing their medications (bottles from the pharmacy with residual pills) to the visit for possible confirmation of pill counts and the patient understands it is their responsibility to submit to random drug screens to ensure both that the medications prescribed are present, and that no other controlled substances are present. All prescriptions provided today were generated electronically. PLAN: 1. We discussed treatment options with the patient today. The patient finds that the methadone is very helpful in controlling her pain; therefore, we will continue her on 10 mg 3 times a day. This places her at high morphine mEq of 90 per one calculation or 120 per another depending on the CDC guidelines; therefore, she is seeing every month. 2. The patient tells me she does not need any Voltaren gel today that she is using it on her knees and shoulders. The patient has care given under the collaboration with Dr. Ramiro Barrera today. ��������������������������������������������� <ELECTRONICALLY SIGNED> ���������������������������������������� By: Roseline Martin ��������������������������������������������� 02/02/19 0731 [id number] Roseline Martin /nt
== END ==
LOC: PAIN 06:53
DX: M17.0 Bilateral primary osteoarthritis of knee (principal); E66.01 Morbid (severe) obesity due to excess calories; I10 Essential (primary) hypertension; I48.91 Unspecified atrial fibrillation; Z95.1 Presence of aortocoronary bypass graft; Z79.899 Other long term (current) drug therapy

== ENCOUNTER → 2019-03-01 | Outpatient (CLI) | payer OTHER ==
[~2019-03-01] VITALS: Ht 152.4 cm; Wt 95.4 kg
[~2019-03-01] MED LIST changes: +VITAMIN E100 UNI1 PO
[2019-03-01 13:13] VITALS: BP 123/53
--- NOTE | 2019-03-01 13:24 | NUR ---
Pain Clinic Assessment: 1. History of Osteoarthritis: KNEES HANDS SHOULDERS History of Rheumatoid Arthritis: NO 2. Height: 5 ft. 0 in. 152.4 cm. Weight: 210.4 lb. oz. 95.437 kg. Patient's BMI: 41.1 3. Vital Signs: BP: 123/53 Pulse: 64 Resp: 20 Temp: 02 Sat: 100 ECG Mon: 4. Pain Intensity: 6-7 5. Fall Risk: Dizziness: N Needs help standing or walking: Y Fallen in the last 3 months: N Fall risk comments: 6. Patient on Blood Thinner: XARELTO 7. History of Hypertension: Y 8. Opioid Therapy greater than 6 weeks: Y Opiate Contract Signed: 06/05/15 9. Risk Assessment Tool Provided: LOW RISK 2 10. Functional Assessment Tool: 11. Recreational Drug Use: Never Drug Type: Tobacco Use: Former Smoker Tobacco Type: Amount or Packs/day: How Many Years: Alcohol Use: No Frequency: Quant:
--- NOTE | 2019-03-02 07:55 | HPC ---
[facility] [address] [place] [address] PAIN MANAGEMENT CONSULTATION Name: TIAN BERNARD PAGE Room #: REG ASCENCION Jackson#: [id number] Admission: 03/01/19 ������������������ Attend Phys: Roseline Martin Discharge: ������������������ Date of : 49 Report #: [id number] THIS REPORT FOR: //name// CC: Roseline Celestenifer Tremaine DATE OF SERVICE: 03/01/2019 CHIEF COMPLAINT: Bilateral hand and bilateral knee pain. HISTORY OF PRESENT ILLNESS: This is a pleasant 73-year-old female who returns to the pain clinic today for refill of her medications. She tells me that she is having some increased pain in her knees and hands and her left shoulder. She is wondering if she could possibly have a Medrol Dosepak to see if this would reduce some of the inflammation that she is having. She tells me her pain score is a 6-7 today in those areas, worse with walking, standing, exercise and using her hands, but the medication of methadone is very helpful with her pain. The patient tells me that she does live in her daughter's basement now. She does climb the stairs several times a day. She feels like she is more active than she used to be when she lived at home. She tells me also that she recently saw her investigator vice, who will be performing a chemical stress test on her in the near future. She does remain on her blood thinner and feels like she is not having any cardiac issues currently. ALLERGIES: ANCEF. CURRENT LIST OF MEDICATIONS: Vitamin E, methadone 10 mg 3 times a day, Voltaren gel to upper extremities, vitamin D, Lasix 20 mg daily, Zantac 300 mg b.i.d., Xarelto 20 mg daily, losartan 50 mg daily, atenolol 25 mg daily, aspirin 81 mg, multivitamin, stool softener, Prozac 10 mg at bedtime, Lipitor 40 mg at bedtime, and Synthroid 137 mcg daily. PQRS: 1. The patient has a history of arthritic changes in her knees and hands and bilateral shoulders. She is not being treated for rheumatoid arthritis. 2. Height is 5 feet, weight is 210, and BMI is 41. 3. Vital signs: Blood pressure 123/53, pulse of 64, respirations 20, oxygen sat is 100. 4. Pain score is 6-7. 5. Fall risk. Denies dizziness. Does not need help walking, but does use a cane for walking and standing, has not fallen in the last 3 months. 6. The patient is on Xarelto and she does take medicine for hypertension. 7. Opioid therapy is greater than 6 weeks; therefore, an opioid signed contract is on the chart. Her risk assessment tool is low. Functional assessment is . [address] [address] PAIN MANAGEMENT CONSULTATION Name: TIAN BERNARD PAGE Room #: REG CLShaista Jackson#: [id number] Admission: 03/01/19 ������������������ Attend Phys: Roseline Martin Discharge: ������������������ Date of : 49 Report #: [id number] 8. Recreational drug use, she denies. She is a former smoker and does not drink alcohol. We did check the prescription monitoring system. The patient is filling appropriately for her medications in a timely fashion. There is a drug screen on the chart. We will recheck another one at the next visit. PHYSICAL EXAMINATION: GENERAL: This is an alert and orientated obese female who appears her stated age of [age] years old. Her affect is appropriate and her speech is fluent. HEENT: Normocephalic, atraumatic. Extraocular eye muscles are intact. Mucous membranes are moist. NECK: Without adenopathy or JVD. EXTREMITIES: Upper extremity strength judged to be 4/5 in all major muscle groups. She complains of increased pain in her bilateral hands today. No swelling noted and pain in her left shoulder, worse with range of motion passive and active range of motion. The patient walks with an antalgic gait. She complains of tenderness in her bilateral knees today as well. Her lower extremity strength judged to be 4/5 in all major muscle groups. She uses a cane for balance for walking. IMPRESSION: 1. Chronic osteoarthritis in her knees bilaterally and hands and shoulders bilaterally. 2. History of atrial fibrillation with rapid ventricular response. 3. Morbid obesity. 4. Complex medical management under terms of written opioid agreement. We reviewed the fact that opiate medications are being used to provide analgesia adequate to support activities of daily living, not attempting to achieve a specific pain score on the 0-10 Visual Analog Scale. The current opiate medications are providing sufficient analgesia to allow the patient to participate in activities of daily living. The patient is not exhibiting any aberrant behavior suggestive of drug diversion. The patient is not having any adverse reactions to medications. The patient is not suffering from daytime somnolence or mental acuity changes. The patient is managing opiate-induced constipation with appropriate bfbv-vnn-mhexjca agents and dietary considerations. The patient was counseled on concern for caution with operating a motor vehicle while using opiate medications. A physical exam was performed and the patient's functional status was evaluated. All patients with back pain were advised against the bed rest greater than 4 days and were advised to return to normal activities. Pain score assessment was noted and the treatment plan was reviewed with the patient. All current medications, both prescribed and OTC were reviewed and reconciled on the electronic medical record. Tobacco screening was accomplished and smoking [facility] [address] [place] [address] PAIN MANAGEMENT CONSULTATION Name: TIAN BERNARD PAGE Room #: REG ASCENCION AndersonLakeishaLeticiaLakeisha#: [id number] Admission: 03/01/19 ������������������ Attend Phys: Roseline Martin Discharge: ������������������ Date of : 47 Report #: [id number] cessation was advised when indicated. BMI was noted and diet/exercise modification was recommended for all patients following outside normal parameters. I reviewed with the patient today their responsibilities to safeguard prescription medications, reviewed their responsibility to utilize medications only as prescribed by the physician. They are to seek and receive pain medications only from 1 physician group ( [facility]). They are to use 1 pharmacy and keep the clinic informed if they change pharmacies. Their responsibilities include making followup visits in a timely fashion and to avoid abrupt discontinuation of medication usage. Their responsibilities further include bringing their medications (bottles from the pharmacy with residual pills) to the visit for possible confirmation of pill counts and the patient understands it is their responsibility to submit to random drug screens to ensure both that the medications prescribed are present, and that no other controlled substances are present. All prescriptions provided today were generated electronically. PLAN: 1. We discussed treatment options with the patient today. The patient feels that her pain has increased slightly over the past few days, wondering if we would give her a Medrol Dosepak to help reduce some inflammation. According to the records, the patient had not had one of these for a significant amount of time. Script given for that today. The patient is instructed to take as directed. 2. Scripts given for methadone 10 mg, #90 for 1 month. The patient feels this is beneficial in controlling her pain, does place her at 90 morphine mEq or 100 morphine mEq depending on the conversion sheet that we accept from the [facility]. The patient is seen on a monthly basis. 3. Dr. Peewee West did come and see the patient today and collaborated care. 4. The patient made an appointment for 1 month. She will at that time bring us the new name of her pharmacy that is closer to her house since she has moved recently and thought she was locked into one pharmacy. We explained to her according to the opioid agreement, we would like her to have one pharmacy only, but it is fine to have one close to her house, so she will move pharmacies and let us know that location next visit. ��������������������������������������������� <ELECTRONICALLY SIGNED> ���������������������������������������� By: Roseline Martin ��������������������������������������������� 03/02/19 0755 [id number] 2047 Roseline Martin /alejandra
== END ==
LOC: PAIN 12:51
DX: M17.0 Bilateral primary osteoarthritis of knee (principal); M19.012 Primary osteoarthritis, left shoulder; M19.011 Primary osteoarthritis, right shoulder; M19.042 Primary osteoarthritis, left hand; M19.041 Primary osteoarthritis, right hand; I48.91 Unspecified atrial fibrillation; E66.9 Obesity, unspecified; Z79.891 Long term (current) use of opiate analgesic

== ENCOUNTER → 2019-03-29 | Outpatient (CLI) | payer OTHER ==
[~2019-03-29] VITALS: Ht 157.5 cm; Wt 100.0 kg
[2019-03-29 13:05] VITALS: BP 100/61
--- NOTE | 2019-03-29 13:19 | NUR ---
Pain Clinic Assessment: 1. History of Osteoarthritis: KNEES HANDS SHOULDERS History of Rheumatoid Arthritis: NO 2. Height: 5 ft. 2 in. 157.5 cm. Weight: 220.4 lb. oz. 99.973 kg. Patient's BMI: 40.3 3. Vital Signs: BP: 100/61 Pulse: 63 Resp: 16 Temp: 02 Sat: 100 ECG Mon: 4. Pain Intensity: 5 5. Fall Risk: Dizziness: N Needs help standing or walking: Y Fallen in the last 3 months: N Fall risk comments: 6. Patient on Blood Thinner: XARELTO 7. History of Hypertension: Y 8. Opioid Therapy greater than 6 weeks: Y Opiate Contract Signed: 06/05/15 9. Risk Assessment Tool Provided: LOW RISK 2 10. Functional Assessment Tool: 11. Recreational Drug Use: Never Drug Type: Tobacco Use: Former Smoker Tobacco Type: Amount or Packs/day: How Many Years: Alcohol Use: No Frequency: Quant:
--- NOTE | 2019-03-30 15:40 | HPC ---
[facility] [address] [address] PAIN MANAGEMENT CONSULTATION Name: TIAN PAGE Room #: REG ASADShaista Jackson#: [id number] Admission: 03/29/19 Attend Phys: Roseline Martin Discharge: Date of : 49 Report #: [id number] THIS REPORT FOR: //name// CC: Roseline Celestenifer Tremaine DATE OF SERVICE: 03/29/2019 CHIEF COMPLAINT: Bilateral hand and bilateral knee pain. HISTORY OF PRESENT ILLNESS: This is a pleasant 73-year-old female who returns to the pain clinic today for a refill of her medications. She reports her pain score is a 5/10 today, mostly in her knees, but she does have bilateral hand and shoulder pain. She tells me that it is a sharp, aching, numbness type of pain that is worse with walking and exercise and using her hands. Her pain is relieved with medications as well as resting and heat. 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 The patient tells me that she has been more active since she continues to live in her daughter's house and has not had any problems with constipation or daytime sleepiness. ALLERGIES: ANCEF. CURRENT LIST OF MEDICATIONS: Methadone 10 mg 3 times a day, vitamin E, diclofenac gel, vitamin D, Lasix, Zantac, Xarelto, losartan, atenolol, aspirin, multivitamin, stool softener, Prozac, Lipitor, and Synthroid. PQRS: 1. She has a history of arthritic changes in her knees and her hands and bilateral shoulders. She denies any rheumatoid arthritis. 2. Height is 5 feet 2 inches, weight is 220, BMI is 40. 3. Vital signs: Blood pressure 100/61, pulse is 63, respirations 16, oxygen sat is 100. 4. Pain score is 5/10. 5. Denies dizziness. Does use a cane for walking, has not fallen in the last 3 months. 6. The patient is on Xarelto. She does take a medicine for hypertension. 7. Opioid therapy is greater than 6 weeks; therefore, an opioid signed contract is on the chart. Her risk assessment tool is low. Functional assessment is 27/70. 8. Recreational drug use, she denies. She is a former smoker and does not drink alcohol. According to the prescription monitoring system, the patient is due to fill her medications this week, and we will check a random drug screen on this patient today. [address] [address] PAIN MANAGEMENT CONSULTATION Name: TIAN BERNARD CORINNA Room #: REG [facility] Renetta#: [id number] Admission: 03/29/19 Attend Phys: Roseline Martin Discharge: Date of : 49 Report #: [id number] PHYSICAL EXAMINATION GENERAL: This is alert and orientated obese female who appears her stated age, placing her current pain score today at 5/10. HEENT: Normocephalic, atraumatic. Extraocular eye muscles are intact. Mucous membranes are moist. EXTREMITIES: Upper extremity strength judged to be 4/5 in all major muscle groups. Complains of increasing pain in her hands today. She walks with an antalgic gait. She has tenderness in her bilateral knees, lower extremity strength judged to be 4/5 in all major muscle groups. She does use a cane when walking for balance. IMPRESSION: 1. Chronic osteoarthritis in her knees and hands and shoulders bilaterally. 2. History of atrial fibrillation with rapid ventricular response, on anticoagulation therapy. 3. Morbid obesity. 4. Complex medical management under terms of written opioid agreement. We reviewed the fact that opiate medications are being used to provide analgesia adequate to support activities of daily living, not attempting to achieve a specific pain score on the 0-10 Visual Analog Scale. The current opiate medications are providing sufficient analgesia to allow the patient to participate in activities of daily living. The patient is not exhibiting any aberrant behavior suggestive of drug diversion. The patient is not having any adverse reactions to medications. The patient is not suffering from daytime somnolence or mental acuity changes. The patient is managing opiate-induced constipation with appropriate jdre-scr-ixtwrcs agents and dietary considerations. The patient was counseled on concern for caution with operating a motor vehicle while using opiate medications. A physical exam was performed and the patient's functional status was evaluated. All patients with back pain were advised against the bed rest greater than 4 days and were advised to return to normal activities. Pain score assessment was noted and the treatment plan was reviewed with the patient. All current medications, both prescribed and OTC were reviewed and reconciled on the electronic medical record. Tobacco screening was accomplished and smoking cessation was advised when indicated. BMI was noted and diet/exercise modification was recommended for all patients following outside normal parameters. I reviewed with the patient today their responsibilities to safeguard prescription medications, reviewed their responsibility to utilize medications only as prescribed by the physician. They are to seek and receive pain medications only from 1 physician group ([facility]). They are to use 1 pharmacy and keep the clinic informed if they change pharmacies. Their [address] [address] PAIN MANAGEMENT CONSULTATION Name: TIAN BERNARD PAGE Room #: VICKI Jackson#: [id number] Admission: 03/29/19 Attend Phys: Roseline Martin Discharge: Date of : 49 Report #: [id number] responsibilities include making followup visits in a timely fashion and to avoid abrupt discontinuation of medication usage. Their responsibilities further include bringing their medications (bottles from the pharmacy with residual pills) to the visit for possible confirmation of pill counts and the patient understands it is their responsibility to submit to random drug screens to ensure both that the medications prescribed are present, and that no other controlled substances are present. All prescriptions provided today were generated electronically. PLAN: 1. We discussed treatment options with the patient today. The patient finds her methadone very beneficial. She does take 3 pills a day. This places her at 90 morphine mEq per month. The patient is seen here on a monthly basis. Scripts given today for 10 mg #90 with no additional refills. 2. The patient finds diclofenac gel very beneficial that she uses on her hands and knees and occasionally her shoulder. Scripts given for that with refills as well. 3. Dr. Peewee West did see the patient today and collaborated care. The patient will return in 1 month. Appointment made for her today. <ELECTRONICALLY SIGNED> By: Roseline Martin 03/30/19 1540 1415 0608 Roseline Martin /alejandra
== END ==
LOC: PAIN 06:59
DX: M17.0 Bilateral primary osteoarthritis of knee (principal); I48.91 Unspecified atrial fibrillation; E66.01 Morbid (severe) obesity due to excess calories; Z79.891 Long term (current) use of opiate analgesic; Z88.8 Allergy status to other drugs, medicaments and biological substances; Z79.899 Other long term (current) drug therapy

== ENCOUNTER → 2019-04-26 | Outpatient (CLI) | payer OTHER ==
[~2019-04-26] VITALS: Ht 157.5 cm; Wt 91.0 kg
[~2019-04-26] MED LIST changes: +CYMBALTA30 MG PO
[2019-04-26 13:11] VITALS: BP 154/84
--- NOTE | 2019-04-26 13:22 | NUR ---
Pain Clinic Assessment: 1. History of Osteoarthritis: KNEES HANDS SHOULDERS History of Rheumatoid Arthritis: NO 2. Height: 5 ft. 2 in. 157.5 cm. Weight: 200.6 lb. oz. 90.992 kg. Patient's BMI: 36.7 3. Vital Signs: BP: 154/84 Pulse: 66 Resp: 16 Temp: 02 Sat: 99 ECG Mon: 4. Pain Intensity: 5 hands 4 knees 5. Fall Risk: Dizziness: N Needs help standing or walking: N Fallen in the last 3 months: N Fall risk comments: 6. Patient on Blood Thinner: XARELTO 7. History of Hypertension: Y 8. Opioid Therapy greater than 6 weeks: Y Opiate Contract Signed: 06/05/15 9. Risk Assessment Tool Provided: LOW RISK 2 10. Functional Assessment Tool: 11. Recreational Drug Use: Never Drug Type: Tobacco Use: Former Smoker Tobacco Type: Amount or Packs/day: How Many Years: Alcohol Use: No Frequency: Quant:
--- NOTE | 2019-04-27 13:19 | HPC ---
[facility] [address] [place] [address] PAIN MANAGEMENT CONSULTATION Name: TIAN BERNARD PAGE Room #: REG ASCENCION Renetta#: [id number] Admission: 04/26/19 ������������������ Attend Phys: Roseline Martin Discharge: ������������������ Date of : 47 Report #: [id number] THIS REPORT FOR: //name// CC: Roseline Penaloza MD DATE OF SERVICE: 04/26/2019 CHIEF COMPLAINT: Bilateral hand and knee pain. HISTORY OF PRESENT ILLNESS: This is a 73-year-old female who returns to the pain clinic today for a refill of her medications that she uses to help her ongoing bilateral knee and hand pain. Today, she reports her pain score at 5/10 in her hands and 4/10 in her knees. She is also having some mouth pain as a result of having all of her lower teeth removed within the past month. The patient has lost 20 pounds since this removal since she was only able to drink liquids, but she is reporting today that she is having some soreness in her mouth and is going to contact her oral surgeon after our appointment today. The patient tells me that her pain is worse with walking and standing and exercise, but the medication and rest and using her Voltaren gel as well as her methadone are very beneficial. She does not have any problems with daytime sleepiness or constipation issues. ALLERGIES: ANCEF. CURRENT LIST OF MEDICATIONS: Diclofenac gel, methadone 10 mg 3 times a day, Cymbalta 30 mg daily, vitamin D, Lasix, Zantac, Maalox, Xarelto, losartan, atenolol, aspirin, multivitamin, Colace, Lipitor, and Synthroid. PQRS: 1. She has arthritic changes in her knees and hands. Denies any rheumatoid arthritis. 2. Height is 5 feet 2 inches, weight is 200, BMI is 36. 3. Vital signs 154/84, pulse is 66, respirations 16, oxygen sat is 99. 4. Pain score is 4-5/10. 5. Denies dizziness. Does use a cane and has not fallen in the last 3 months. 6. The patient is on Xarelto as well as taking medicines for hypertension. 7. Opiate therapy is greater than 6 weeks; therefore, an opioid signed contract is on the chart. Risk assessment tool is low. Functional assessment is . 8. Recreational drug use, she denies. She is a former smoker and does not drink alcohol. According to the prescription monitoring system, the patient is filling appropriately for her methadone and she is due to fill today[place] [address] PAIN MANAGEMENT CONSULTATION Name: TIAN BERNARD PAGE Room #: REG ASCENCION Jackson#: [id number] Admission: 04/26/19 ������������������ Attend Phys: Roseline Martin Discharge: ������������������ Date of : 49 Report #: [id number] apparent aberrant behaviors. There is also a recent urine drug screen on the chart for a random screen, which is appropriate for her medications as well. PQRS: GENERAL: This is an alert and orientated female who appears her stated age, placing her current pain score at 4-5/10. HEENT: Normocephalic, atraumatic. Extraocular eye muscles are intact. Mucous membranes are moist. She does have some mouth sores due to her recent multiple tooth extractions. MUSCULOSKELETAL: Upper extremity strength judged to be 4/5 in all major muscle groups. She does have bilateral hand pain today. Walks with an antalgic gait using a cane. She has tenderness located in her bilateral knees with active and passive range of motion as well as standing. Her lower extremity strength judged to be 4/5 in all major muscle groups. IMPRESSION: 1. Chronic osteoarthritis in her knees, hands and shoulders bilaterally. 2. History of atrial fibrillation, on anticoagulation therapy. 3. Morbid obesity. 4. Complex medical management under terms of written opioid agreement. We reviewed the fact that opiate medications are being used to provide analgesia adequate to support activities of daily living, not attempting to achieve a specific pain score on the 0-10 Visual Analog Scale. The current opiate medications are providing sufficient analgesia to allow the patient to participate in activities of daily living. The patient is not exhibiting any aberrant behavior suggestive of drug diversion. The patient is not having any adverse reactions to medications. The patient is not suffering from daytime somnolence or mental acuity changes. The patient is managing opiate-induced constipation with appropriate mwys-mcq-jsiehgu agents and dietary considerations. The patient was counseled on concern for caution with operating a motor vehicle while using opiate medications. A physical exam was performed and the patient's functional status was evaluated. All patients with back pain were advised against the bed rest greater than 4 days and were advised to return to normal activities. Pain score assessment was noted and the treatment plan was reviewed with the patient. All current medications, both prescribed and OTC were reviewed and reconciled on the electronic medical record. Tobacco screening was accomplished and smoking cessation was advised when indicated. BMI was noted and diet/exercise modification was recommended for all patients following outside normal parameters. I reviewed with the patient today their responsibilities to safeguard prescription medications, reviewed their responsibility to utilize medications only as prescribed by the physician. They are to seek and receive pain [address] [address] PAIN MANAGEMENT CONSULTATION Name: TIAN BERNARD PAGE Room #: REG ASCENCION ClarkLakeisha#: [id number] Admission: 04/26/19 ������������������ Attend Phys: Roseline Martin Discharge: ������������������ Date of : 47 Report #: [id number] medications only from 1 physician group ( [facility]). They are to use 1 pharmacy and keep the clinic informed if they change pharmacies. Their responsibilities include making followup visits in a timely fashion and to avoid abrupt discontinuation of medication usage. Their responsibilities further include bringing their medications (bottles from the pharmacy with residual pills) to the visit for possible confirmation of pill counts and the patient understands it is their responsibility to submit to random drug screens to ensure both that the medications prescribed are present, and that no other controlled substances are present. All prescriptions provided today were generated electronically. PLAN: 1. We discussed treatment options with the patient today. The patient finds the methadone very beneficial taking 3 tablets a day. This places her at 90 morphine mEq. Therefore, she is seen on a monthly basis. Scripts given for #90 today with no refills. 2. The patient finds the diclofenac gel very beneficial, but is not needing refills today. 3. The patient is complaining of mouth discomfort today. She is encouraged to call her oral surgeon as to make sure she has no ongoing infections since she has had multiple teeth removed in the past month. 4. The patient is seen in collaboration with Dr. Peewee West who did see the patient as well today. The patient will return in 1 month for an appointment. ��������������������������������������������� <ELECTRONICALLY SIGNED> ���������������������������������������� By: Roseline Martin ��������������������������������������������� 04/27/19 1319 1406 0103 Roseline Martin /nt
== END ==
LOC: PAIN 06:59
DX: M17.0 Bilateral primary osteoarthritis of knee (principal); I48.91 Unspecified atrial fibrillation; E66.01 Morbid (severe) obesity due to excess calories; M19.012 Primary osteoarthritis, left shoulder; M19.011 Primary osteoarthritis, right shoulder; Z79.891 Long term (current) use of opiate analgesic; Z79.899 Other long term (current) drug therapy

== ENCOUNTER → 2019-05-24 | Outpatient (CLI) | payer OTHER ==
[~2019-05-24] VITALS: Ht 152.4 cm; Wt 89.5 kg
[~2019-05-24] MED LIST changes: +MELATONIN3 M1 PO
[2019-05-24 13:18] VITALS: BP 146/73
--- NOTE | 2019-05-24 13:24 | NUR ---
Pain Clinic Assessment: 1. History of Osteoarthritis: KNEES HANDS SHOULDERS History of Rheumatoid Arthritis: NO 2. Height: 5 ft. 0 in. 152.4 cm. Weight: 197.4 lb. oz. 89.540 kg. Patient's BMI: 38.6 3. Vital Signs: BP: 146/73 Pulse: 70 Resp: 16 Temp: 02 Sat: 94 ECG Mon: 4. Pain Intensity: 8 5. Fall Risk: Dizziness: N Needs help standing or walking: N Fallen in the last 3 months: N Fall risk comments: 6. Patient on Blood Thinner: XARELTO 7. History of Hypertension: Y 8. Opioid Therapy greater than 6 weeks: Y Opiate Contract Signed: 06/05/15 9. Risk Assessment Tool Provided: LOW RISK 2 10. Functional Assessment Tool: 11. Recreational Drug Use: Never Drug Type: Tobacco Use: Former Smoker Tobacco Type: Amount or Packs/day: How Many Years: Alcohol Use: No Frequency: Quant:
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
== END ==
LOC: PAIN 07:05
DX: M54.5 Low back pain (principal); M17.0 Bilateral primary osteoarthritis of knee; I48.91 Unspecified atrial fibrillation; I10 Essential (primary) hypertension; E03.9 Hypothyroidism, unspecified; E78.5 Hyperlipidemia, unspecified; E66.01 Morbid (severe) obesity due to excess calories; K57.92 Diverticulitis of intestine, part unspecified, without perforation or abscess without bleeding; Z95.5 Presence of coronary angioplasty implant and graft; Z79.899 Other long term (current) drug therapy

== ENCOUNTER → 2019-06-21 | Outpatient (CLI) | payer OTHER ==
[~2019-06-21] VITALS: Ht 152.4 cm; Wt 85.6 kg
[2019-06-21 12:51] VITALS: BP 113/58
--- NOTE | 2019-06-21 12:58 | NUR ---
Pain Clinic Assessment: 1. History of Osteoarthritis: KNEES HANDS SHOULDERS History of Rheumatoid Arthritis: NO 2. Height: 5 ft. 0 in. 152.4 cm. Weight: 188.8 lb. oz. 85.639 kg. Patient's BMI: 36.9 3. Vital Signs: BP: 113/58 Pulse: 84 Resp: 16 Temp: 02 Sat: 99 ECG Mon: 4. Pain Intensity: 3 KNEES/HANDS 5. Fall Risk: Dizziness: N Needs help standing or walking: Y Fallen in the last 3 months: N Fall risk comments: 6. Patient on Blood Thinner: XARELTO 7. History of Hypertension: Y 8. Opioid Therapy greater than 6 weeks: Y Opiate Contract Signed: 06/05/15 9. Risk Assessment Tool Provided: LOW RISK 2 10. Functional Assessment Tool: 11. Recreational Drug Use: Never Drug Type: Tobacco Use: Former Smoker Tobacco Type: Amount or Packs/day: How Many Years: Alcohol Use: No Frequency: Quant:
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
== END ==
LOC: PAIN 06:59
DX: Z76.0 Encounter for issue of repeat prescription (principal); M17.0 Bilateral primary osteoarthritis of knee; G89.29 Other chronic pain; I10 Essential (primary) hypertension; E03.9 Hypothyroidism, unspecified; E78.5 Hyperlipidemia, unspecified; E66.01 Morbid (severe) obesity due to excess calories; Z79.899 Other long term (current) drug therapy; Z79.891 Long term (current) use of opiate analgesic

== ENCOUNTER → 2019-07-19 | Outpatient (CLI) | payer OTHER ==
[~2019-07-19] VITALS: Ht 152.4 cm; Wt 82.4 kg
[2019-07-19 12:45] VITALS: BP 154/73
--- NOTE | 2019-07-19 12:54 | NUR ---
Pain Clinic Assessment: 1. History of Osteoarthritis: KNEES HANDS SHOULDERS History of Rheumatoid Arthritis: NO 2. Height: 5 ft. 0 in. 152.4 cm. Weight: 181.6 lb. oz. 82.373 kg. Patient's BMI: 35.5 3. Vital Signs: BP: 154/73 Pulse: 79 Resp: 18 Temp: 02 Sat: 98 ECG Mon: 4. Pain Intensity: 3 KNEES/HANDS 5. Fall Risk: Dizziness: N Needs help standing or walking: N Fallen in the last 3 months: N Fall risk comments: 6. Patient on Blood Thinner: XARELTO 7. History of Hypertension: Y 8. Opioid Therapy greater than 6 weeks: Y Opiate Contract Signed: 06/05/15 9. Risk Assessment Tool Provided: LOW RISK 2 10. Functional Assessment Tool: 11. Recreational Drug Use: Never Drug Type: Tobacco Use: Former Smoker Tobacco Type: Cigarettes Amount or Packs/day: 1 How Many Years: 20 Alcohol Use: No Frequency: Quant:
--- NOTE | 2019-07-20 08:47 | HPC ---
[facility] [address] [address] PAIN MANAGEMENT CONSULTATION Name: TIAN BERNARD PAGE Room #: REG [facility] Renetta#: [id number] Admission: 07/19/19 Attend Phys: Roseline Martin Discharge: Date of : 47 Report #: [id number] THIS REPORT FOR: //name// CC: Roseline West MD DATE OF SERVICE: 07/19/2019 CHIEF COMPLAINT: Chronic pain in her hands and shoulders. HISTORY OF PRESENT ILLNESS: This is a 74-year-old female who returns to the pain clinic today for medications that she uses to help treat her chronic pain. She has bilateral knee discomfort as well as her shoulders and pain is also in her hands. She reports this is a 3/10 today. Feels like it is very well controlled with her methadone and her Voltaren gel, it is an aching pain with numbness. She feels that walking and exercise and prolonged use of her hands does make her pain worse, but feels that heat and medications are very beneficial in controlling the majority of her pain. She reports that she uses a Juany-Colace daily to help prevent constipation and does not have any daytime somnolence as a result of her medications today. She would like refills of her methadone. ALLERGIES: ANCEF. CURRENT LIST OF MEDICATIONS: Melatonin, methadone 10 mg t.i.d., Voltaren gel as needed, Cymbalta, vitamin E, vitamin D, Lasix, magnesium, Xarelto, losartan, atenolol, aspirin, multivitamin, Colace, Lipitor, and Synthroid. PQRS: 1. She does have a history of osteoarthritis involving her knees and hands. She is not being treated for rheumatoid arthritis. 2. Height is 5 feet, weight is 181, BMI is 35. 3. Vital signs 154/73, pulse is 79, respirations 18, oxygen sat is 98. 4. Pain score is 3/10. 5. Denies dizziness, she has a cane for walking, has not fallen in the last 3 months. 6. She is on Xarelto as well as hypertension medicines. 7. Opiate therapy is greater than 6 weeks; therefore, an opioid signed contract is on the chart. Risk assessment tool is low. Functional assessment is . 8. Recreational drug use, she denies. She is a former smoker and does not drink alcohol. According to the prescription monitoring system, the patient is filling appropriately for her medications. She is due in a timely fashion for those [address] [address] PAIN MANAGEMENT CONSULTATION Name: TIAN BERNARD PAGE Room #: REG [facility] Jackson#: [id number] Admission: 07/19/19 Attend Phys: Roseline Martin Discharge: Date of : 49 Report #: [id number] today. There is a recent drug screen on the chart that is appropriate as well. PHYSICAL EXAMINATION: GENERAL: This is a well-developed, well-nourished 74-year-old female who appears her stated age. She is alert and orientated. HEENT: Normocephalic, atraumatic. Extraocular eye muscles are intact. Mucous membranes are moist. NECK: Without adenopathy or JVD. EXTREMITIES: Upper extremity strength judged to be 4/5 in all major muscle groups. MUSCULOSKELETAL: She has tenderness in her bilateral hands. She ambulates using a cane, needs help with the arm rest to rise from sitting to standing position. Her lower extremity strength judged to be 4/5. She is slightly deconditioned in her lower extremities. IMPRESSION: 1. Chronic arthritis in her knees bilaterally and hands. 2. History of atrial fibrillation, on anticoagulation treatment. 3. Morbid obesity. 4. History of pulmonary edema. 5. Complex medical management under terms of written opioid agreement. PLAN: 1. We discussed treatment options with the patient today. The patient finds her methadone very beneficial in controlling most of her pain. She would like refills of those medications today. According to the CDC guidelines, her morphine mEq is 90 per day. We do see this patient on a monthly basis. Scripts were written for methadone 10 mg #[address] Peewee West. 2. The patient finds a Voltaren gel very beneficial, though not needing a refill of that was medications today. 3. The patient will be seen in followup in 1 month. Appointment made for 08/18/2018. The patient is seen today in collaboration with Dr. Peewee West. <ELECTRONICALLY SIGNED> By: Roselien Matrin 07/20/19 0847 [id number] Roseline Martin /alejandra
== END ==
LOC: PAIN 07:08
DX: M17.0 Bilateral primary osteoarthritis of knee (principal); I48.91 Unspecified atrial fibrillation; E66.01 Morbid (severe) obesity due to excess calories; Z79.891 Long term (current) use of opiate analgesic

== ENCOUNTER → 2019-08-23 | Outpatient (CLI) | payer OTHER ==
[~2019-08-23] VITALS: Ht 152.4 cm; Wt 78.7 kg
[2019-08-23 13:44] VITALS: BP 163/95
--- NOTE | 2019-08-23 13:52 | NUR ---
Pain Clinic Assessment: 1. History of Osteoarthritis: KNEES HANDS SHOULDERS History of Rheumatoid Arthritis: NO 2. Height: 5 ft. 0 in. 152.4 cm. Weight: 173.6 lb. oz. 78.744 kg. Patient's BMI: 33.9 3. Vital Signs: BP: 163/95 Pulse: 71 Resp: 18 Temp: 02 Sat: 95 ECG Mon: 4. Pain Intensity: 7 5. Fall Risk: Dizziness: N Needs help standing or walking: N Fallen in the last 3 months: N Fall risk comments: 6. Patient on Blood Thinner: XARELTO 7. History of Hypertension: Y 8. Opioid Therapy greater than 6 weeks: Y Opiate Contract Signed: 06/05/15 9. Risk Assessment Tool Provided: LOW RISK 2 10. Functional Assessment Tool: 11. Recreational Drug Use: Never Drug Type: Tobacco Use: Former Smoker Tobacco Type: Amount or Packs/day: How Many Years: Alcohol Use: No Frequency: Quant:
--- NOTE | 2019-08-24 16:09 | HPC ---
[facility] [address] [place] [address] PAIN MANAGEMENT CONSULTATION Name: TIAN BERNARD PAGE Room #: REG ASADShaista Jackson#: [id number] Admission: 08/23/19 Attend Phys: Roseline Martin Discharge: Date of : 49 Report #: [id number] THIS REPORT FOR: //name// CC: Roseline West MD DATE OF SERVICE: 08/23/2019 CHIEF COMPLAINT: Chronic pain in hands and shoulders. HISTORY OF PRESENT ILLNESS: This is a 74-year-old female who returns to the pain clinic today for refills of her medication that she uses to help treat her ongoing bilateral hand pain that is worse in her left thumb as well as shoulder pain and knee pain. She takes methadone 3 times a day and also uses Voltaren gel, which she finds both are very beneficial. She did run out of these medicines yesterday because she did not making a timely appointment; therefore, she feels that her legs were more bothersome yesterday. Today, she is reporting a pain score of 7/10, worse with any exercises and standing and movement and use of her hands, but she feels that the medication does not cause her any side effects of daytime sleepiness or constipation, just benefits her by decreasing her pain. CURRENT ALLERGIES: ANCEF. MEDICATIONS: Methadone 10 mg 3 times a day, diclofenac gel, Cymbalta 30 mg, vitamin E, vitamin D, Lasix, magnesium, Xarelto, losartan, atenolol, aspirin, multivitamin, stool softener, atorvastatin, Synthroid. PQRS: 1. She has osteoarthritic changes in her hands, knees and shoulders. Denies any rheumatoid arthritis. 2. Height is 5 feet, weight is 173. BMI is 33. 3. Vital signs 163/95, pulse is 71, respirations 18, oxygen sat is 95. 4. Pain score is 7/10. Fall risk, denies dizziness. Does use a cane at all times. Has not fallen in the last 3 months. 5. The patient's blood thinner is Xarelto. She takes medicine for hypertension. Her opioid therapy is greater than 6 weeks; therefore, an opioid signed contract is on the chart. Risk assessment tool is low. Functional assessment is . 6. Recreational drug use, she denies. She is a former smoker and does not drink alcohol. According to the prescription monitoring system, the patient is filling appropriately for her methadone, though [place] [address] PAIN MANAGEMENT CONSULTATION Name: TIAN BERNARD PAGE Room #: REG ASCENCION Jackson#: [id number] Admission: 08/23/19 Attend Phys: Roseline Martin Discharge: Date of : 49 Report #: [id number] timely fashion and is out of her medications, is not suffering side effects of withdrawal other than achy legs today. There is a drug screen on the chart. PHYSICAL EXAMINATION: GENERAL: This is alert and orientated 74-year-old female who appears older than her stated age, placing her current pain score at 7/10. HEENT: Normocephalic, atraumatic. Extraocular eye muscles are intact. Mucous membranes are moist. NECK: Without adenopathy or JVD. MUSCULOSKELETAL: She has tenderness in her bilateral hands. The left thumb has increased pain with any use. She uses a cane to ambulate, but rises from sitting to standing without any difficulty. Her lower extremity strength is 4/5. She seems deconditioned. Her upper extremity strength judged to be 5/5 in all major muscle groups. She has tenderness in her bilateral knees as well, that pain increases with ambulation. IMPRESSION: 1. Chronic osteoarthritis in her knees bilaterally and hands. 2. History of atrial fibrillation, on anticoagulation treatment. 3. Morbid obesity. 4. Complex medical management under terms of written opioid agreement. We reviewed the fact that opiate medications are being used to provide analgesia adequate to support activities of daily living, not attempting to achieve a specific pain score on the 0-10 Visual Analog Scale. The current opiate medications are providing sufficient analgesia to allow the patient to participate in activities of daily living. The patient is not exhibiting any aberrant behavior suggestive of drug diversion. The patient is not having any adverse reactions to medications. The patient is not suffering from daytime somnolence or mental acuity changes. The patient is managing opiate-induced constipation with appropriate bncu-zkw-otiajbd agents and dietary considerations. The patient was counseled on concern for caution with operating a motor vehicle while using opiate medications. A physical exam was performed and the patient's functional status was evaluated. All patients with back pain were advised against the bed rest greater than 4 days and were advised to return to normal activities. Pain score assessment was noted and the treatment plan was reviewed with the patient. All current medications, both prescribed and OTC were reviewed and reconciled on the electronic medical record. Tobacco screening was accomplished and smoking cessation was advised when indicated. BMI was noted and diet/exercise modification was recommended for all patients following outside normal parameters. I reviewed with the patient today their responsibilities to safeguard prescription medications, reviewed their responsibility to utilize medications only as prescribed by the physician. They are to seek and receive pain medications only from 1 physician group ([facility]). They are to use [address] [place] [address] [address] PAIN MANAGEMENT CONSULTATION Name: TIAN BERNARD PAGE Room #: VICKI VEGAS Renetta#: [id number] Admission: 08/23/19 Attend Phys: Roseline Martin Discharge: Date of : 49 Report #: [id number] pharmacy and keep the clinic informed if they change pharmacies. Their responsibilities include making followup visits in a timely fashion and to avoid abrupt discontinuation of medication usage. Their responsibilities further include bringing their medications (bottles from the pharmacy with residual pills) to the visit for possible confirmation of pill counts and the patient understands it is their responsibility to submit to random drug screens to ensure both that the medications prescribed are present, and that no other controlled substances are present. All prescriptions provided today were generated electronically. PLAN: 1. We discussed treatment options with the patient today. I reminded the patient that she needs to make appointments in a timely fashion, so she does not go without her medication causing her to have withdrawal symptoms. The patient verbalizes understanding. She has gone one day without her medications per her report. 2. We will prescribe a refill of her methadone 10 mg, #90, for today and make a followup appointment for 1 month. The patient is not needing Voltaren gel refills today. She finds that is very beneficial in helping her arthritic hands and knees. 3. The patient is seen in collaboration with Dr. Peewee West. 4. The patient reports having difficulty sleeping. I encouraged her to increase her melatonin to 6 mg at bedtime. <ELECTRONICALLY SIGNED> By: Roseline Martin 08/24/19 1609 [id number] Roseline Martin /nt
== END ==
LOC: PAIN 08-18 06:52
DX: M17.0 Bilateral primary osteoarthritis of knee (principal); M19.042 Primary osteoarthritis, left hand; M19.041 Primary osteoarthritis, right hand; I48.92 Unspecified atrial flutter; E66.09 Other obesity due to excess calories; Z79.891 Long term (current) use of opiate analgesic

== ENCOUNTER → 2019-09-20 | Outpatient (CLI) | payer OTHER ==
[~2019-09-20] VITALS: Ht 152.4 cm; Wt 87.4 kg
[2019-09-20 11:28] VITALS: BP 136/69
--- NOTE | 2019-09-20 11:39 | NUR ---
Pain Clinic Assessment: 1. History of Osteoarthritis: KNEES HANDS SHOULDERS History of Rheumatoid Arthritis: NO 2. Height: 5 ft. 0 in. 152.4 cm. Weight: 192.6 lb. oz. 87.363 kg. Patient's BMI: 37.6 3. Vital Signs: BP: 136/69 Pulse: Resp: 16 Temp: 02 Sat: ECG Mon: 4. Pain Intensity: 7 5. Fall Risk: Dizziness: N Needs help standing or walking: Y Fallen in the last 3 months: N Fall risk comments: 6. Patient on Blood Thinner: XARELTO 7. History of Hypertension: Y 8. Opioid Therapy greater than 6 weeks: Y Opiate Contract Signed: 06/05/15 9. Risk Assessment Tool Provided: LOW RISK 2 10. Functional Assessment Tool: 11. Recreational Drug Use: Never Drug Type: Tobacco Use: Former Smoker Tobacco Type: Amount or Packs/day: How Many Years: Alcohol Use: No Frequency: Quant:
--- NOTE | 2019-09-21 09:26 | HPC ---
[facility] [address] [place] [address] PAIN MANAGEMENT CONSULTATION Name: TIAN BERNARD PAGE Room #: REG ASCENCION Renetta#: [id number] Admission: 09/20/19 Attend Phys: Roseline Martin Discharge: Date of : 49 Report #: [id number] THIS REPORT FOR: cc: Leigha Penaloza MD, Jennifer S. MD Hocker, Amanda CNS ~ THIS REPORT FOR: //name// DATE OF SERVICE: 09/20/2019 CHIEF COMPLAINT: Chronic pain in knees and hands. HISTORY OF PRESENT ILLNESS: This is a 74-year-old female who returns to the pain clinic today for refill of her medications that she uses to help treat her ongoing hand and knee pain. She reports a pain score of 7/10 today. It is an aching, sharp occasional stabbing pain that is worse with exercises and prolonged walking and standing. She feels that the medicine is very beneficial as well as sitting and resting as well as heat and her Voltaren gel to her hands. She denies problems with constipation or daytime sleepiness as a result of the medications. The patient does report she recently had a stress test performed. She feels that she is doing quite well from her cardiac rehabilitation. She was happy to hear that and report this to us. ALLERGIES: ANCEF. CURRENT LIST OF MEDICATIONS: Methadone 10 mg t.i.d., melatonin, diclofenac gel, Cymbalta, vitamin E, vitamin D, Lasix, Maalox, Xarelto, losartan, atenolol, aspirin, multivitamin, stool softener, Lipitor, and Synthroid. PQRS: 1. She does have arthritic changes in her hands, knees and shoulders. Denies any rheumatoid arthritis. 2. Height is 5 feet, weight is 192, BMI is 37. 3. Vital signs: Blood pressure 136/69, pulse is 70, respirations 16, oxygen sat is 99. 4. Pain score 7/10. 5. Denies dizziness. Does need help walking, uses a walker. Has not fallen in the last 3 months. 6. The patient is on Xarelto as well as medicines for hypertension. Her opioid therapy is greater than 6 weeks; therefore, an opioid signed contract is on the chart. Risk assessment tool is low. Functional assessment is 70. 7. Recreational drug use, she denies. She is a former smoker [place] [address] PAIN MANAGEMENT CONSULTATION Name: TIAN BERNARD ALLERTON Room #: REG CLShaista Jackson#: [id number] Admission: 09/20/19 Attend Phys: Roseline Martin Discharge: Date of : 49 Report #: [id number] 8. According to the prescription monitoring system, the patient is filling appropriately filling in a timely fashion of her medications. PHYSICAL EXAMINATION: GENERAL: This is an alert and orientated 74-year-old female who appears her stated age, placing her current pain score today at 7/10. HEENT: Normocephalic, atraumatic. Extraocular eye muscles are intact. Mucous membranes are moist. MUSCULOSKELETAL: She has pain and tenderness in her bilateral hands. Lower extremity strength judged to be 4/5, which is deconditioned and she does use a walker or a cane with ambulation and walks with an antalgic gait. She has tenderness in her bilateral knees and pain is increased with ambulation and standing. IMPRESSION: 1. Chronic osteoarthritis in her knees bilaterally and hands. 2. History of atrial fibrillation, on anticoagulation therapy with Xarelto. 3. Morbid obesity. 4. Complex medical management under terms of written opioid agreement. PLAN: 1. We discussed treatment options with the patient today. The patient reports that she is doing quite well on her current regimen. We will continue her on her methadone 10 mg t.i.d., #90. These will be written by Dr. Peewee West who collaborated care today. 2. We will send a refill of her Voltaren gel to her pharmacy for 3 months. 3. The patient will return as needed in one month. Appointment will be made prior to discharge. <ELECTRONICALLY SIGNED> By: Roseline Martin 09/21/19 0926 [id number] Roseline Martin /nt
== END ==
LOC: PAIN 06:49
DX: M17.0 Bilateral primary osteoarthritis of knee (principal); M19.041 Primary osteoarthritis, right hand; M19.042 Primary osteoarthritis, left hand; I48.91 Unspecified atrial fibrillation; E66.01 Morbid (severe) obesity due to excess calories; Z79.01 Long term (current) use of anticoagulants; Z88.8 Allergy status to other drugs, medicaments and biological substances; Z79.899 Other long term (current) drug therapy

== ENCOUNTER → 2019-10-18 | Outpatient (CLI) | payer OTHER ==
[~2019-10-18] VITALS: Ht 152.4 cm; Wt 84.5 kg
[2019-10-18 13:21] VITALS: BP 139/76
--- NOTE | 2019-10-18 13:23 | NUR ---
Pain Clinic Assessment: 1. History of Osteoarthritis: KNEES HANDS SHOULDERS History of Rheumatoid Arthritis: NO 2. Height: 5 ft. 0 in. 152.4 cm. Weight: 186.2 lb. oz. 84.460 kg. Patient's BMI: 36.4 3. Vital Signs: BP: 139/76 Pulse: 80 Resp: 16 Temp: 02 Sat: 94 ECG Mon: 4. Pain Intensity: 6-7 5. Fall Risk: Dizziness: N Needs help standing or walking: N Fallen in the last 3 months: N Fall risk comments: 6. Patient on Blood Thinner: XARELTO 7. History of Hypertension: Y 8. Opioid Therapy greater than 6 weeks: Y Opiate Contract Signed: 06/05/15 9. Risk Assessment Tool Provided: LOW RISK 2 10. Functional Assessment Tool: 11. Recreational Drug Use: Never Drug Type: Tobacco Use: Former Smoker Tobacco Type: Amount or Packs/day: How Many Years: Alcohol Use: No Frequency: Quant:
--- NOTE | 2019-10-19 09:05 | HPC ---
[facility] [address] [place] [address] PAIN MANAGEMENT CONSULTATION Name: TIAN BERNARD PAGE Room #: REG ASCENCION AndersonLakeishaLeticiaLakeisha#: [id number] Admission: 10/18/19 Attend Phys: Roseline Martin Discharge: Date of : 49 Report #: [id number] THIS REPORT FOR: cc: Leigha Penaloza MD, Jennifer S. MD Hocker,Roseline FARIA ~ DATE OF SERVICE: 10/18/2019 CHIEF COMPLAINT: Chronic pain in her bilateral knees and hands. HISTORY OF PRESENT ILLNESS: This is a 74-year-old female who returns to the pain clinic today for refill of her medications. Today, she is reporting that she has a new pain in her neck and upper back and shoulders along with her normal pain in her knees and hands. She reports it is aching pain, rating her pain score at 6-7 today. It is worse with walking, standing and moving and using her arms. She feels that medications as well as sitting and resting have been beneficial. She does use her Voltaren gel on her knees and hands. States she has not tried that on her neck area presently. 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 ALLERGIES: ANCEF. CURRENT LIST OF MEDICATIONS: Diclofenac gel, methadone 10 mg t.i.d., melatonin, Cymbalta, vitamin E, vitamin D, Lasix, Maalox, Xarelto, losartan, atenolol, aspirin, multivitamin, stool softener, Lipitor, and levothyroxine. PQRS: 1. She has osteoarthritic changes in her hands, knees and shoulders. Denies any rheumatoid arthritis. 2. Height is 5 feet, weight is 186, BMI is 36. 3. Vital signs: Blood pressure 139/76, pulse is 80, respirations 16, oxygen sat is 94%. 4. Pain score is 6-7. 5. Denies dizziness, does not need help walking or standing, has not fallen in the last 3 months. The patient is on Xarelto as well as medicines for hypertension. 6. Opioid therapy is greater than 6 weeks; therefore, an opioid signed contract is on the chart. Risk assessment tool is low. Functional assessment is . 7. Recreational drug use, she denies. She is a former smoker and does not drink alcohol. According to the prescription monitoring system, the patient is due to fill her methadone today. She is filling it in a timely fashion at one pharmacy. According to the CDC guidelines, her morphine mEq is 90 MME per day. She reports she is having issues with her [place] [address] PAIN MANAGEMENT CONSULTATION Name: BERNARDTIAN PAGE Room #: REG ASCENCION Jackson#: [id number] Admission: 10/18/19 Attend Phys: Roseline Martin Discharge: Date of : 49 Report #: [id number] medications. She has been paying out of pocket for her methadone. She reports it is $16 a month. There is a recent drug screen on the chart that is appropriate for her. PHYSICAL EXAMINATION: GENERAL: This is alert and orientated 74-year-old female who appears her stated age, placing her current pain score at 6/10. HEENT: Normocephalic, atraumatic. Extraocular eye muscles are intact. Mucous membranes are moist. NECK: Complains of tenderness in her paraspinal muscles that radiates into her shoulders today. MUSCULOSKELETAL: She has pain and tenderness in her bilateral knees. Pain is increased with ambulation and standing. She has tenderness in her hands from her arthritic joints. Lower extremity strength judged to be 4/5. She is deconditioned and does walk with a cane. She has a slow antalgic gait. IMPRESSION: 1. Chronic osteoarthritis in her bilateral knees and hands. 2. Myofascial pain in her neck. 3. History of atrial fibrillation, on anticoagulation therapy of Xarelto. 4. Morbid obesity. 5. Complex medical management under terms of written opioid agreement. We reviewed the fact that opiate medications are being used to provide analgesia adequate to support activities of daily living, not attempting to achieve a specific pain score on the 0-10 Visual Analog Scale. The current opiate medications are providing sufficient analgesia to allow the patient to participate in activities of daily living. The patient is not exhibiting any aberrant behavior suggestive of drug diversion. The patient is not having any adverse reactions to medications. The patient is not suffering from daytime somnolence or mental acuity changes. The patient is managing opiate-induced constipation with appropriate hnew-jyf-botemyg agents and dietary considerations. The patient was counseled on concern for caution with operating a motor vehicle while using opiate medications. PLAN: 1. We discussed treatment options with the patient today. The patient is complaining of a new discomfort in her neck and shoulder. I encouraged her to try to sit up straight. Her posture today is quite bent over working on her phone. 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 I encouraged her to try to change her position and sit up straight. This may be causing some of her myofascial pain in her neck and shoulders. I also told her she was allowed to use her Voltaren gel on her neck if she felt that that might be beneficial. 2. The patient denies any problems with constipation or daytime sleepiness from her methadone. She finds it very beneficial. We will have Dr. Peewee West [facility] [address] [place] [address] PAIN MANAGEMENT CONSULTATION Name: TIAN BERNARD PAGE Room #: REG [facility] Renetta#: [id number] Admission: 10/18/19 Attend Phys: Roseline Martin Discharge: Date of : 49 Report #: [id number] refill 10 mg, #90. She will be given 1 month script of this medicine. She will return in 1 month for a followup visit. The patient is seen in collaboration with Dr. West today. <ELECTRONICALLY SIGNED> By: Roseline Martin 10/19/19 0905 [id number] Roseline Martin /nt
== END ==
LOC: PAIN 07:00
DX: M17.0 Bilateral primary osteoarthritis of knee (principal); M19.041 Primary osteoarthritis, right hand; M19.042 Primary osteoarthritis, left hand; M79.18 Myalgia, other site; E66.01 Morbid (severe) obesity due to excess calories; Z88.8 Allergy status to other drugs, medicaments and biological substances; Z79.899 Other long term (current) drug therapy

== ENCOUNTER → 2019-11-15 | Outpatient (CLI) | payer OTHER ==
[~2019-11-15] VITALS: Ht 152.4 cm; Wt 89.1 kg
[2019-11-15 12:50] VITALS: BP 120/66
--- NOTE | 2019-11-15 12:59 | NUR ---
Pain Clinic Assessment: 1. History of Osteoarthritis: KNEES HANDS SHOULDERS History of Rheumatoid Arthritis: NO 2. Height: 5 ft. 0 in. 152.4 cm. Weight: 196.4 lb. oz. 89.087 kg. Patient's BMI: 38.4 3. Vital Signs: BP: 120/66 Pulse: 72 Resp: 20 Temp: 02 Sat: 98 ECG Mon: 4. Pain Intensity: 6 5. Fall Risk: Dizziness: N Needs help standing or walking: N Fallen in the last 3 months: N Fall risk comments: 6. Patient on Blood Thinner: XARELTO 7. History of Hypertension: Y 8. Opioid Therapy greater than 6 weeks: Y Opiate Contract Signed: 06/05/15 9. Risk Assessment Tool Provided: LOW RISK 2 10. Functional Assessment Tool: 11. Recreational Drug Use: Never Drug Type: Tobacco Use: Former Smoker Tobacco Type: Amount or Packs/day: How Many Years: Alcohol Use: No Frequency: Quant:
--- NOTE | 2019-11-16 08:00 | HPC ---
[facility] [place] [address] PAIN MANAGEMENT CONSULTATION Name: TIAN BERNARD PAGE Room #: VICKI VEGAS Renetta#: [id number] Admission: 11/15/19 Attend Phys: Roseline Martin Discharge: Date of : 49 Report #: [id number] THIS REPORT FOR: cc: Leigha Penaloza MD, Jennifer S. MD Hocker, Amanda CNS ~ CC: ROLAND WEST DATE OF SERVICE: 11/15/2019 CHIEF COMPLAINT: Chronic pain in her bilateral knees and hands. HISTORY OF PRESENT ILLNESS: This is a 74-year-old female who returns to the pain clinic today for refill of her medications that she uses to treat her ongoing bilateral knee and hand pain. She is reporting her pain score is 6/10 today, then aching and numbness with occasional stabbing if she uses her hands too much or walks too long. She feels that the medication as well as resting and heat are very beneficial. She denies problems with constipation as long as she takes [id number] Colace and MiraLax. The patient reports no overmedicated feeling or somnolence as a result of her medications. ALLERGIES: ANCEF. CURRENT LIST OF MEDICATIONS: Methadone 10 mg t.i.d., Voltaren gel, melatonin, Cymbalta, vitamin E, vitamin D, Lasix, Maalox, Xarelto, losartan, atenolol, aspirin, multivitamin, Colace, atorvastatin, and Synthroid. PATIENT'S PQRS: 1. She has osteoarthritic changes in her hands, knees and shoulders. Denies any rheumatoid arthritis. 2. Height is 5 feet, weight is 196, BMI is 38. 3. Vital signs; 120/66, pulse is 72, respirations 20, oxygen sat is 98. 4. Pain score 6/10. 5. Denies dizziness, does not need help walking or standing, but does use a cane, has not fallen in the last 3 months. The patient is also on Xarelto and takes medicine for hypertension. 6. Opioid therapy is greater than 6 weeks; therefore, an opioid signed contract is on the chart. Risk assessment tool is low. Functional assessment is 27 out of 70. 7. Recreational drug use, she denies. She is a former smoker and does not drink alcohol. According to the prescription monitoring system, the patient is filling appropriately for her medications. She is due to fill those medicines today. PHYSICAL EXAMINATION: [facility] [address] [place] [address] PAIN MANAGEMENT CONSULTATION Name: TIAN BERNARD PAGE Room #: [facility] [id number] Admission: 11/15/19 Attend Phys: Roseline Martin Discharge: Date of : 47 Report #: [id number] GENERAL: This is alert and orientated 74-year-old female who appears her stated age, placing her current pain score at 6/10 today. HEENT: Normocephalic, atraumatic. Extraocular eye muscles are intact. Mucous membranes are moist. MUSCULOSKELETAL: She has tenderness in her bilateral knees with no swelling noted. She has tenderness in her hands from her arthritic joints that are tender to the touch. Her lower extremity strength judged to be 4/5. She is deconditioned bilaterally and she walks with a cane and a slow antalgic gait. IMPRESSION: 1. Chronic osteoarthritis in her bilateral knees and hands. 2. History of atrial fibrillation, on anticoagulation therapy. 3. Morbid obesity. 4. Complex medical management under terms of written opioid agreement. We reviewed the fact that opiate medications are being used to provide analgesia adequate to support activities of daily living, not attempting to achieve a specific pain score on the 0-10 Visual Analog Scale. The current opiate medications are providing sufficient analgesia to allow the patient to participate in activities of daily living. The patient is not exhibiting any aberrant behavior suggestive of drug diversion. The patient is not having any adverse reactions to medications. The patient is not suffering from daytime somnolence or mental acuity changes. The patient is managing opiate-induced constipation with appropriate euuk-mjy-obzvcev agents and dietary considerations. The patient was counseled on concern for caution with operating a motor vehicle while using opiate medications. A physical exam was performed and the patient's functional status was evaluated. All patients with back pain were advised against the bed rest greater than 4 days and were advised to return to normal activities. Pain score assessment was noted and the treatment plan was reviewed with the patient. All current medications, both prescribed and OTC were reviewed and reconciled on the electronic medical record. Tobacco screening was accomplished and smoking cessation was advised when indicated. BMI was noted and diet/exercise modification was recommended for all patients following outside normal parameters. I reviewed with the patient today their responsibilities to safeguard prescription medications, reviewed their responsibility to utilize medications only as prescribed by the physician. They are to seek and receive pain medications only from 1 physician group ([facility]). They are to use 1 pharmacy and keep the clinic informed if they change pharmacies. Their responsibilities include making followup visits in a timely fashion and to avoid abrupt discontinuation of medication usage. Their responsibilities further include bringing their medications (bottles from the pharmacy with residual pills) to the visit for possible confirmation of pill counts and the patient [address] [address] PAIN MANAGEMENT CONSULTATION Name: TIAN BERNARD PAGE Room #: REG ASCENCION Jackson#: [id number] Admission: 11/15/19 Attend Phys: Roseline Martin Discharge: Date of : 47 Report #: [id number] understands it is their responsibility to submit to random drug screens to ensure both that the medications prescribed are present, and that no other controlled substances are present. All prescriptions provided today were generated electronically. PLAN: 1. We discussed treatment options with the patient today. The patient finds her medication very beneficial. She reports she did need to switch pharmacies because of the new pharmacist decided that methadone was not appropriate for her pain and would not fill her prescription. The patient has returned to [facility] who fills her medication as prescribed by Dr. West. He refilled this medicine today for #90 tablets of 10 mg taking one 3 times a day. 2. I encouraged the patient if she is able to skip a dose on her less painful days in case there is a supply chain issue with obtaining methadone due to the COVID virus, the patient verbalizes understanding. She will try to take a half of less on some days to see if this will give her a small supply at home. 3. The patient is not needing any Voltaren gel today. She has plenty that she does use on her hands. She finds this very beneficial as well. 4. The patient is seen in collaboration with Dr. Peewee West today. <ELECTRONICALLY SIGNED> By: Roseline Martin 11/16/19 0800 [id number] Roseline temple
== END | disposition home or self-care (01) ==
LOC: PAIN 06:50
DX: G89.29 Other chronic pain (principal); M17.0 Bilateral primary osteoarthritis of knee; M19.041 Primary osteoarthritis, right hand; M19.042 Primary osteoarthritis, left hand; I48.91 Unspecified atrial fibrillation; E66.01 Morbid (severe) obesity due to excess calories; Z98.890 Other specified postprocedural states; Z79.891 Long term (current) use of opiate analgesic; Z68.38 Body mass index [BMI] 38.0-38.9, adult; Z79.01 Long term (current) use of anticoagulants; Z88.8 Allergy status to other drugs, medicaments and biological substances; Z79.899 Other long term (current) drug therapy

== ENCOUNTER → 2020-01-03 | Outpatient (CLI) | payer OTHER ==
[~2020-01-03] VITALS: Ht 152.4 cm; Wt 93.0 kg
[2020-01-03 10:40] VITALS: BP 145/74
--- NOTE | 2020-01-03 10:43 | NUR ---
Pain Clinic Assessment: 1. History of Osteoarthritis: KNEES HANDS SHOULDERS History of Rheumatoid Arthritis: NO 2. Height: 5 ft. 0 in. 152.4 cm. Weight: 205.0 lb. oz. 92.988 kg. Patient's BMI: 40.0 3. Vital Signs: BP: 145/74 Pulse: 75 Resp: 18 Temp: 02 Sat: 97 ECG Mon: 4. Pain Intensity: 6 5. Fall Risk: Dizziness: N Needs help standing or walking: N Fallen in the last 3 months: N Fall risk comments: 6. Patient on Blood Thinner: XARELTO 7. History of Hypertension: Y 8. Opioid Therapy greater than 6 weeks: Y Opiate Contract Signed: 06/05/15 9. Risk Assessment Tool Provided: LOW RISK 2 10. Functional Assessment Tool: 11. Recreational Drug Use: Never Drug Type: Tobacco Use: Former Smoker Tobacco Type: Cigarettes Amount or Packs/day: 1 How Many Years: 20 Alcohol Use: No Frequency: Quant:
--- NOTE | 2020-01-03 12:40 | HPC ---
[facility] [address] [address] PAIN MANAGEMENT CONSULTATION Name: TIAN BERNARD PAGE Room #: REG ASCENCION Renetta#: [id number] Admission: 01/03/20 Attend Phys: Roseline Martin Discharge: Date of : 47 Report #: [id number] THIS REPORT FOR: cc: Leigha Penaloza MD, Jennifer S. MD Hocker, Amanda CNS ~ CC: Dylon West MD DATE OF SERVICE: 01/03/2020 CHIEF COMPLAINT: Chronic pain of osteoarthritis in her bilateral knees and hands. HISTORY OF PRESENT ILLNESS: As you know, this is a 74-year-old female who continues to have ongoing pain in her bilateral knees and hands as a result of her osteoarthritis. She states today that they are quite problematic rating her pain score as 6/10. She is also having some shoulder pain. She continues to use her Voltaren gel on these multiple joints, finds that beneficial as well as her methadone. She reports that her pain is an aching, stabbing pain, worse with any activity and movement of using her hands and walking. She does use a cane at all times. She feels that the medication as well as sitting and resting as well as heat is beneficial. She denies any problems with constipation as a result of her opioid medications. Today, she was requesting refills of her medications. ALLERGIES: ANCEF. CURRENT LIST OF MEDICATIONS: Methadone 10 mg 3 times a day, diclofenac gel, melatonin, Cymbalta, vitamin E, vitamin D, Lasix, Maalox, Xarelto, losartan, atenolol, aspirin, multivitamin, stool softener, Lipitor, Synthroid. PQRS: 1. She has osteoarthritis in her hands, knees and shoulders. Denies any rheumatoid arthritis. 2. Height is 5 feet, weight is 205, BMI is 40. Vital signs 145/74, pulse is 75, respirations 18, oxygen sat is 97%. Pain score is 6/10. 3. Fall risk, denies dizziness. Does use a cane for ambulation, has not fallen in the last 3 months. The patient is on anticoagulation therapy as well as antihypertensives. Opioid therapy is greater than 6 weeks; therefore, an opioid signed contract is on the chart. Risk assessment tool is low. Functional assessment is . 4. Recreational drug use, she denies. She is a former smoker of cigarettes and does not drink alcohol. According to the prescription monitoring system, her methadone is due to be filled next week. She is filling them in a timely fashion. According to the [address] [address] PAIN MANAGEMENT CONSULTATION Name: TIAN BERNARD PAGE Room #: REG ASCENCION Jackson#: [id number] Admission: 01/03/20 Attend Phys: Roseline Martin Discharge: Date of : 47 Report #: [id number] CDC guidelines, her morphine mEq per day is 90 MMEs. There is a recent drug screen on the chart that is appropriate for her medications. PHYSICAL EXAMINATION: GENERAL: This is a well-developed, well-nourished, slightly obese 74-year-old female who appears her stated age, placing her current pain score at 6/10. HEENT: Normocephalic, atraumatic. Extraocular eye muscles are intact. Sclerae are nonintrinsic. She is wearing a mask today. MUSCULOSKELETAL: Tenderness in her bilateral hands from her arthritic joints that are very tender to the touch and slightly swollen. Also, complains of bilateral shoulder pain, worse with range of motion above her head. She has tenderness in her bilateral knees as well. She walks with an antalgic gait, uses a cane at all times. Her lower extremity strength judged to be 4/5 and is deconditioned. IMPRESSION: 1. Chronic osteoarthritis in her bilateral knees and hands. 2. Morbid obesity. 3. History of atrial fibrillation, on anticoagulation therapy. 4. Complex medical management under terms of written opioid agreement. PLAN: 1. We discussed treatment options with the patient today. The patient finds her methadone beneficial in helping control her pain as well as her diclofenac gel. She is unable to take oral anti-inflammatories due to her blood thinners. She does use the diclofenac gel on her hands, knees and shoulders. Today, we will refill her methadone therapy 10 mg 3 times a day, #90, for today and 4 weeks supply. This will be sent electronically by Dr. West to her [facility]. 2. I will refill her diclofenac gel 1% 2 tubes with 2 additional refills. 3. The patient instructed on the electronically sent prescriptions and reminded that she needs to make a timely appointment when she fills her second prescription to call for an appointment. The patient verbalizes understanding. The patient is seen in collaboration with Dr. Peewee West today. <ELECTRONICALLY SIGNED> By: Roseline Martin 01/03/20 1240 [id number] Roseline Martin /nt
== END ==
LOC: PAIN 07:00
DX: M25.561 Pain in right knee (principal); M25.562 Pain in left knee; G89.29 Other chronic pain; E66.01 Morbid (severe) obesity due to excess calories; I48.91 Unspecified atrial fibrillation; Z79.891 Long term (current) use of opiate analgesic

== ENCOUNTER → 2020-01-31 | Outpatient (CLI) | payer OTHER ==
[~2020-01-31] VITALS: Ht 152.4 cm; Wt 95.3 kg
[2020-01-31 10:46] VITALS: BP 106/76
--- NOTE | 2020-01-31 10:57 | NUR ---
Pain Clinic Assessment: 1. History of Osteoarthritis: KNEES HANDS SHOULDERS History of Rheumatoid Arthritis: NO 2. Height: 5 ft. 0 in. 152.4 cm. Weight: 210.2 lb. oz. 95.346 kg. Patient's BMI: 41.1 3. Vital Signs: BP: 106/76 Pulse: 75 Resp: 18 Temp: 02 Sat: 98 ECG Mon: 4. Pain Intensity: 7-KNEES; 5-HANDS 3-SHOULD 5. Fall Risk: Dizziness: N Needs help standing or walking: Y Fallen in the last 3 months: N Fall risk comments: 6. Patient on Blood Thinner: XARELTO 7. History of Hypertension: Y 8. Opioid Therapy greater than 6 weeks: Y Opiate Contract Signed: 06/05/15 9. Risk Assessment Tool Provided: LOW RISK 2 10. Functional Assessment Tool: 11. Recreational Drug Use: Never Drug Type: Tobacco Use: Former Smoker Tobacco Type: Amount or Packs/day: How Many Years: Alcohol Use: No Frequency: Quant:
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
== END ==
LOC: PAIN 06:52
PROVIDERS: ATTEND Anesthesiology Pain Medicine
DX: S82.92XD Unspecified fracture of left lower leg, subsequent encounter for closed fracture with routine healing (principal); M17.0 Bilateral primary osteoarthritis of knee; M25.511 Pain in right shoulder; M25.512 Pain in left shoulder; M25.561 Pain in right knee; M25.562 Pain in left knee; E66.01 Morbid (severe) obesity due to excess calories; K57.32 Diverticulitis of large intestine without perforation or abscess without bleeding; I10 Essential (primary) hypertension; J33.9 Nasal polyp, unspecified; E03.9 Hypothyroidism, unspecified; E78.5 Hyperlipidemia, unspecified; Z86.79 Personal history of other diseases of the circulatory system; Z95.5 Presence of coronary angioplasty implant and graft; Z87.09 Personal history of other diseases of the respiratory system; X58.XXXD Exposure to other specified factors, subsequent encounter

== ENCOUNTER → 2020-02-28 | Outpatient (CLI) | payer OTHER ==
[~2020-02-28] VITALS: Ht 152.4 cm; Wt 100.2 kg
[~2020-02-28] MED LIST changes: -ASPIR 8181 M1 PO; +ASPIRIN EC81 M1 PO; +BLU EMU TOP; +INSTA-FLEX PO
[2020-02-28 12:54] VITALS: BP 149/75
--- NOTE | 2020-02-28 12:57 | NUR ---
Pain Clinic Assessment: 1. History of Osteoarthritis: KNEES HANDS SHOULDERS History of Rheumatoid Arthritis: NO 2. Height: 5 ft. 0 in. 152.4 cm. Weight: 221.0 lb. oz. 100.245 kg. Patient's BMI: 43.2 3. Vital Signs: BP: 149/75 Pulse: 76 Resp: 16 Temp: 02 Sat: 97 ECG Mon: 4. Pain Intensity: 7 5. Fall Risk: Dizziness: N Needs help standing or walking: N Fallen in the last 3 months: N Fall risk comments: 6. Patient on Blood Thinner: XARELTO 7. History of Hypertension: Y 8. Opioid Therapy greater than 6 weeks: Y Opiate Contract Signed: 06/05/15 9. Risk Assessment Tool Provided: LOW RISK 2 10. Functional Assessment Tool: 11. Recreational Drug Use: Never Drug Type: Tobacco Use: Former Smoker Tobacco Type: Amount or Packs/day: How Many Years: Alcohol Use: No Frequency: Quant:
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
== END ==
LOC: PAIN 06:57
PROVIDERS: ATTEND Anesthesiology Pain Medicine
DX: M17.0 Bilateral primary osteoarthritis of knee (principal); M25.561 Pain in right knee; M25.512 Pain in left shoulder; M25.511 Pain in right shoulder; E66.01 Morbid (severe) obesity due to excess calories; K57.32 Diverticulitis of large intestine without perforation or abscess without bleeding; E78.5 Hyperlipidemia, unspecified; E03.9 Hypothyroidism, unspecified; I10 Essential (primary) hypertension; Z86.79 Personal history of other diseases of the circulatory system; Z95.1 Presence of aortocoronary bypass graft; Z87.81 Personal history of (healed) traumatic fracture; Z88.8 Allergy status to other drugs, medicaments and biological substances; Z79.899 Other long term (current) drug therapy

== ENCOUNTER → 2020-03-27 | Outpatient (CLI) | payer OTHER ==
[~2020-03-27] VITALS: Ht 152.4 cm; Wt 99.2 kg
[~2020-03-27] MED LIST changes: +ASPIR 8181 M1 PO; -ASPIRIN EC81 M1 PO; -BLU EMU TOP; -INSTA-FLEX PO
[2020-03-27 12:59] VITALS: BP 157/83
--- NOTE | 2020-03-27 13:03 | NUR ---
Pain Clinic Assessment: 1. History of Osteoarthritis: KNEES HANDS SHOULDERS History of Rheumatoid Arthritis: NO 2. Height: 5 ft. 0 in. 152.4 cm. Weight: 218.6 lb. oz. 99.156 kg. Patient's BMI: 42.7 3. Vital Signs: BP: 157/83 Pulse: 78 Resp: 16 Temp: 02 Sat: 96 ECG Mon: 4. Pain Intensity: 8 5. Fall Risk: Dizziness: N Needs help standing or walking: N Fallen in the last 3 months: N Fall risk comments: 6. Patient on Blood Thinner: XARELTO 7. History of Hypertension: Y 8. Opioid Therapy greater than 6 weeks: Y Opiate Contract Signed: 06/05/15 9. Risk Assessment Tool Provided: LOW RISK 2 10. Functional Assessment Tool: 11. Recreational Drug Use: Never Drug Type: Tobacco Use: Former Smoker Tobacco Type: Cigarettes Amount or Packs/day: How Many Years: 20 Alcohol Use: No Frequency: Quant:
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
== END ==
LOC: PAIN 06:56
PROVIDERS: ATTEND Anesthesiology Pain Medicine
DX: M17.0 Bilateral primary osteoarthritis of knee (principal); M25.511 Pain in right shoulder; M25.512 Pain in left shoulder; I48.91 Unspecified atrial fibrillation; I10 Essential (primary) hypertension; E03.9 Hypothyroidism, unspecified; E78.5 Hyperlipidemia, unspecified; S82.92XD Unspecified fracture of left lower leg, subsequent encounter for closed fracture with routine healing; K57.33 Diverticulitis of large intestine without perforation or abscess with bleeding; E66.9 Obesity, unspecified; Z95.5 Presence of coronary angioplasty implant and graft; Z87.09 Personal history of other diseases of the respiratory system; Z88.8 Allergy status to other drugs, medicaments and biological substances; Z79.899 Other long term (current) drug therapy

== ENCOUNTER → 2020-05-29 | Outpatient (CLI) | payer OTHER ==
[~2020-05-29] VITALS: Ht 152.4 cm; Wt 103.3 kg
--- NOTE | ~2020-05-29 | HPC ---
[facility] [address] [place] [address] PAIN MANAGEMENT CONSULTATION Name: TIAN BERNARD PAGE Room #: REG ASADShaista Jackson#: [id number] Admission: 05/29/20 Attend Phys: Roseline Martin Discharge: Date of : 47 Report #: [id number] CC: Roseline Cain DATE OF SERVICE: 05/29/2020 CHIEF COMPLAINT: Bilateral knee pain. HISTORY OF PRESENT ILLNESS: This is a 75-year-old female who returns to the pain clinic today for refill of her medications. Today, she is reporting a pain score of 6/10 stating that her pain is well managed with her methadone and diclofenac gel. She feels that those are both beneficial in helping with her bilateral knee pain. She does also have arthritic changes in her hands and shoulders that she does use the Voltaren gel for. She reports her pain as an aching and occasional sharp pain, worse with any standing exercises or movement and it is worse later in the day. The patient is quite upbeat today and very talkative regarding her new apartment. She has recently moved out of her daughter's basement into an apartment behind her other daughter that she does have her own space and is excited about that ____ on the stairs that she is required to get up and down to get into her apartment, but feels that they have made it very safe for her and she does walk to her daughter's apartment for meals in the evening and trying to get more exercise. ALLERGIES: ANCEF. CURRENT LIST OF MEDICATIONS: Methadone 10 mg t.i.d., Voltaren gel, melatonin, Cymbalta, vitamin D, Lasix, Xarelto, losartan, atenolol, aspirin, multivitamin, stool softener, Lipitor, and Synthroid. PQRS: 1. She has osteoarthritic changes in her knees, hands and shoulders. Denies any rheumatoid arthritis. 2. Height is 5 feet, weight is 227, BMI is 44. 3. Vital signs; blood pressure 128/68, pulse is 62, respirations 18, oxygen sat is 96. 4. Pain score 6/10. 5. Denies dizziness, does use a cane for ambulation, but has not fallen in the last 3 months. 6. The patient is on Xarelto as well as medications for hypertension. 7. Opiate therapy is greater than 6 weeks; therefore, an opioid signed contract is on the chart. Risk assessment is low. Functional assessment is 27/70. 8. Recreational drug use, she denies. She is a former smoker and does not drink alcohol. According to the prescription monitoring system, she is filling appropriately. She is due to fill her medications today. Her morphine milliequivalent according to the CDC guidelines is 90 MME's slightly above the CDC guidelines, but she is stable and we do see her every 2 months. There is a random drug screen on the chart that is appropriate for her medications. PHYSICAL EXAMINATION: GENERAL: This is alert and orientated, slightly upbeat 75-year-old female who is alert and orientated. Her affect is appropriate, placing her current pain score at 6/10. HEENT: Normocephalic, atraumatic. Extraocular eye muscles are intact. Sclerae are nonintrinsic. She is wearing a mask. NECK: Without adenopathy or JVD. MUSCULOSKELETAL: Upper extremity strength judged to be 4/5 in all major muscle groups. She has discomfort in her right shoulder with movement, status post rotator cuff repair. Pain in her bilateral knees. It is increased with ambulation. She uses a cane and has an antalgic gait. IMPRESSION: 1. Chronic arthritis in her bilateral knees, shoulders and hands. 2. History of atrial fibrillation, on anticoagulation therapy. 3. Hypertension. 4. History of pulmonary edema. 5. Morbid obesity. 6. Chronic opioid use under terms of written agreement. We reviewed the fact that opiate medications are being used to provide analgesia adequate to support activities of daily living, not attempting to achieve a specific pain score on the 0-10 Visual Analog Scale. The current opiate medications are providing sufficient analgesia to allow the patient to participate in activities of daily living. The patient is not exhibiting any aberrant behavior suggestive of drug diversion. The patient is not having any adverse reactions to medications. The patient is not suffering from daytime somnolence or mental acuity changes. The patient is managing opiate-induced constipation with appropriate saqh-rbl-qhtkcnl agents and dietary considerations. The patient was counseled on concern for caution with operating a motor vehicle while using opiate medications. PLAN: 1. The patient is very upbeat today describing her new apartment that she has recently moved to. She is excited about living alone again even though her daughter does live in an apartment near her. The patient also reports she does have a new pharmacy since her move and has discussed with the pharmacy that she is on methadone and will be filling there on a monthly basis. 2. We will have Dr. Peewee West send her methadone 10 mg t.i.d., #90 to this new pharmacy for today and 4-week supply. 3. I will continue her on her Voltaren gel. She does find this beneficial for her arthritic joints of hands, knees and shoulders. Scripts set electronically. 3. The patient will return in 2 months or as needed before the patient is seen in collaboration with Dr. West today. By: [id number] Roseline Martin /alejandra
[2020-05-29 10:08] VITALS: BP 128/68
--- NOTE | 2020-05-29 10:19 | NUR ---
Pain Clinic Assessment: 1. History of Osteoarthritis: KNEES HANDS SHOULDERS History of Rheumatoid Arthritis: NO 2. Height: 5 ft. 0 in. 152.4 cm. Weight: 227.8 lb. oz. 103.330 kg. Patient's BMI: 44.5 3. Vital Signs: BP: 128/68 Pulse: 62 Resp: 18 Temp: 02 Sat: 96 ECG Mon: 4. Pain Intensity: 6 5. Fall Risk: Dizziness: N Needs help standing or walking: Y Fallen in the last 3 months: N Fall risk comments: 6. Patient on Blood Thinner: XARELTO 7. History of Hypertension: Y 8. Opioid Therapy greater than 6 weeks: Y Opiate Contract Signed: 06/05/15 9. Risk Assessment Tool Provided: LOW RISK 2 10. Functional Assessment Tool: 11. Recreational Drug Use: Never Drug Type: Tobacco Use: Former Smoker Tobacco Type: Amount or Packs/day: How Many Years: Alcohol Use: No Frequency: Quant:
== END ==
LOC: PAIN 06:47
PROVIDERS: ATTEND Clinical Nurse Specialist Adult Health
DX: M19.011 Primary osteoarthritis, right shoulder (principal); M19.012 Primary osteoarthritis, left shoulder; M17.11 Unilateral primary osteoarthritis, right knee; M17.12 Unilateral primary osteoarthritis, left knee; G89.29 Other chronic pain; I48.91 Unspecified atrial fibrillation; I10 Essential (primary) hypertension; E66.01 Morbid (severe) obesity due to excess calories; Z79.891 Long term (current) use of opiate analgesic

== ENCOUNTER → 2020-07-24 | Outpatient (CLI) | payer OTHER ==
[~2020-07-24] VITALS: Ht 152.4 cm; Wt 103.0 kg
[~2020-07-24] MED LIST changes: -ASPIR 8181 M1 PO; +ASPIRIN EC81 M1 PO; +BLU EMU TOP; +INSTA-FLEX PO
[2020-07-24 12:50] VITALS: BP 123/78
--- NOTE | 2020-07-24 12:56 | NUR ---
Pain Clinic Assessment: 1. History of Osteoarthritis: KNEES HANDS SHOULDERS History of Rheumatoid Arthritis: NO 2. Height: 5 ft. 0 in. 152.4 cm. Weight: 227.0 lb. oz. 102.967 kg. Patient's BMI: 44.3 3. Vital Signs: BP: 123/78 Pulse: 70 Resp: 18 Temp: 02 Sat: 99 ECG Mon: 4. Pain Intensity: 7 5. Fall Risk: Dizziness: N Needs help standing or walking: Y Fallen in the last 3 months: N Fall risk comments: 6. Patient on Blood Thinner: XARELTO 7. History of Hypertension: Y 8. Opioid Therapy greater than 6 weeks: Y Opiate Contract Signed: 06/05/15 9. Risk Assessment Tool Provided: LOW RISK 2 10. Functional Assessment Tool: 11. Recreational Drug Use: Never Drug Type: Tobacco Use: Former Smoker Tobacco Type: Amount or Packs/day: How Many Years: Alcohol Use: No Frequency: Quant:
--- NOTE | 2020-07-25 08:15 | HPC ---
[facility] [address] [place] [address] PAIN MANAGEMENT CONSULTATION Name: TIAN BERNARD PAGE Room #: VICKI VEGAS Renetta#: [id number] Admission: 07/24/20 Attend Phys: Roseline Martin Discharge: Date of : 47 Report #: [id number] THIS REPORT FOR: cc: Janki Cain MD, Stephanie M. MD Hocker,Roseline FARIA ~ CHIEF COMPLAINT: Bilateral knee pain. HISTORY OF PRESENT ILLNESS: As you know, this is a 75-year-old female who has ongoing bilateral knee pain as a result of osteoarthritis. She does have significant hand pain as well. Today, she is reporting her pain a 7/10, most problematic today in her hands. It is a chronic aching, numbness with some stabbing sensations worse with movement and exercise and as the day progresses, her pain does increase. She believes that medication as well as Instaflex cream and Blue Emu as well as occasional Voltaren gel have been beneficial in decreasing her pain. The patient does deny any problems associated with constipation as a result of her narcotic use. ALLERGIES: ANCEF. CURRENT LIST OF MEDICATIONS: Methadone, Voltaren gel, melatonin, Cymbalta, vitamin D, Lasix, Xarelto, losartan, atenolol, aspirin, multivitamin, stool softener, Lipitor, and Synthroid. PQRS: 1. She is positive for osteoarthritis in her hands, shoulders and knees. Denies any rheumatoid arthritis. 2. Height is 5 feet, weight is 227, BMI is 44. 3. Vital signs 123/78, pulse is 70, respirations 18, oxygen sat is 99. 4. Pain score is 7/10. 5. Denies dizziness. Does use a walker for ambulation and has not fallen in the last 3 months. 6. The patient is on Xarelto as well as medicines for hypertension. 7. Opiate therapy is greater than 6 weeks; therefore an opioid signed contract is on the chart. Risk assessment is low. Functional assessment is . 8. Recreational drug use, she denies. She is a former smoker and does not drink alcohol. According to the prescription monitoring system, the patient is filling appropriately for her medications. Her morphine mEq is quite high at 96 due to the conversion of methadone and she is seen every 2 months in the clinic. PHYSICAL EXAMINATION: GENERAL: This is alert and orientated, well-developed, well-nourished, slightly obese 75-year-old female who appears her stated age. Her affect is appropriate, placing her current pain score at 7/10. HEENT: Normocephalic, atraumatic. Extraocular eye muscles [place] [address] PAIN MANAGEMENT CONSULTATION Name: BERNARDTIAN PAGE Room #: REG ASCENCION Jackson#: [id number] Admission: 07/24/20 Attend Phys: Roseline Martin Discharge: Date of : 47 Report #: [id number] wearing a mask. NECK: Without adenopathy or JVD. MUSCULOSKELETAL: She has pain that is increased in her knees bilaterally with ambulation. She does use a cane or walker at all times. She has a slightly antalgic gait. Discomfort in numerous joints of her bilateral hands with arthritic changes noted. IMPRESSION: 1. Chronic arthritis in bilateral knees, shoulders and hands. 2. History of atrial fibrillation, on anticoagulation therapy. 3. Hypertension. 4. Morbid obesity. 5. Chronic opioid use under terms of written agreement. We reviewed the fact that opiate medications are being used to provide analgesia adequate to support activities of daily living, not attempting to achieve a specific pain score on the 0-10 Visual Analog Scale. The current opiate medications are providing sufficient analgesia to allow the patient to participate in activities of daily living. The patient is not exhibiting any aberrant behavior suggestive of drug diversion. The patient is not having any adverse reactions to medications. The patient is not suffering from daytime somnolence or mental acuity changes. The patient is managing opiate-induced constipation with appropriate vuvm-kpa-qfdjaxo agents and dietary considerations. The patient was counseled on concern for caution with operating a motor vehicle while using opiate medications. PLAN: 1. We discussed treatment options with the patient today. The patient does find her methadone beneficial and would like to continue this. She has minimal side effects of constipation. We will have Dr. West send 10 mg tablets, #90, for today and 4-week supply. She is closely monitored on this medicine due to the high morphine mEq and is seen every 2 months. 2. I will continue her with her Voltaren gel, which she does find beneficial as well as utilizing some onib-xgq-owdodsh products that she finds helpful as well. 3. The patient is seen in collaboration today with Dr. West. The patient will return in 2 months. <ELECTRONICALLY SIGNED> By: Roseline Martin 07/25/20 0815 [id number] Roseline Martin /nt
== END ==
LOC: PAIN 06:55
PROVIDERS: ATTEND Clinical Nurse Specialist Adult Health
DX: M25.561 Pain in right knee (principal); M25.562 Pain in left knee; M19.012 Primary osteoarthritis, left shoulder; M19.011 Primary osteoarthritis, right shoulder; G89.29 Other chronic pain; I48.91 Unspecified atrial fibrillation; I10 Essential (primary) hypertension; E66.01 Morbid (severe) obesity due to excess calories; Z79.891 Long term (current) use of opiate analgesic

== ENCOUNTER → 2020-09-25 | Outpatient (CLI) | payer OTHER ==
[~2020-09-25] VITALS: Ht 152.4 cm; Wt 105.1 kg
[2020-09-25 13:21] VITALS: BP 154/78
--- NOTE | 2020-09-25 13:26 | NUR ---
Pain Clinic Assessment: 1. History of Osteoarthritis: KNEES HANDS SHOULDERS History of Rheumatoid Arthritis: NO 2. Height: 5 ft. 0 in. 152.4 cm. Weight: 231.6 lb. oz. 105.053 kg. Patient's BMI: 45.2 3. Vital Signs: BP: 154/78 Pulse: 74 Resp: 16 Temp: 02 Sat: 99 ECG Mon: 4. Pain Intensity: 7 5. Fall Risk: Dizziness: N Needs help standing or walking: N Fallen in the last 3 months: N Fall risk comments: 6. Patient on Blood Thinner: XARELTO 7. History of Hypertension: Y 8. Opioid Therapy greater than 6 weeks: Y Opiate Contract Signed: 06/05/15 9. Risk Assessment Tool Provided: LOW RISK 2 10. Functional Assessment Tool: 11. Recreational Drug Use: Never Drug Type: Tobacco Use: Former Smoker Tobacco Type: Amount or Packs/day: How Many Years: Alcohol Use: No Frequency: Quant:
== END ==
LOC: PAIN 06:55
PROVIDERS: ATTEND Clinical Nurse Specialist Adult Health
DX: M17.0 Bilateral primary osteoarthritis of knee (principal); I10 Essential (primary) hypertension; E66.01 Morbid (severe) obesity due to excess calories; F11.20 Opioid dependence, uncomplicated; I48.91 Unspecified atrial fibrillation; Z88.8 Allergy status to other drugs, medicaments and biological substances; Z79.899 Other long term (current) drug therapy

== ENCOUNTER → 2020-09-25 | Outpatient (CLI) | payer OTHER | LOC: SJCVC 14:08 | PROVIDERS: ATTEND Internal Medicine Cardiovascular Disease | DX: I25.10 Atherosclerotic heart disease of native coronary artery without angina pectoris (principal); I48.0 Paroxysmal atrial fibrillation; E78.00 Pure hypercholesterolemia, unspecified; R07.9 Chest pain, unspecified; M19.90 Unspecified osteoarthritis, unspecified site; I11.0 Hypertensive heart disease with heart failure; I50.9 Heart failure, unspecified; E66.9 Obesity, unspecified; E78.5 Hyperlipidemia, unspecified; Z90.49 Acquired absence of other specified parts of digestive tract; Z90.710 Acquired absence of both cervix and uterus; Z98.890 Other specified postprocedural states; Z88.8 Allergy status to other drugs, medicaments and biological substances; Z79.82 Long term (current) use of aspirin; Z79.899 Other long term (current) drug therapy; Z86.718 Personal history of other venous thrombosis and embolism; Z86.711 Personal history of pulmonary embolism; Z87.891 Personal history of nicotine dependence ==

== ENCOUNTER → 2020-10-16 | Outpatient (CLI) | payer OTHER | LOC: SJCVCIMAG 10-04 07:42 | PROVIDERS: ATTEND Internal Medicine Cardiovascular Disease | DX: I49.3 Ventricular premature depolarization (principal); I25.10 Atherosclerotic heart disease of native coronary artery without angina pectoris; R07.9 Chest pain, unspecified; I48.0 Paroxysmal atrial fibrillation; E78.00 Pure hypercholesterolemia, unspecified; I11.0 Hypertensive heart disease with heart failure; I50.9 Heart failure, unspecified; E03.9 Hypothyroidism, unspecified; E78.5 Hyperlipidemia, unspecified; E66.09 Other obesity due to excess calories; M19.90 Unspecified osteoarthritis, unspecified site; R60.0 Localized edema; Z86.711 Personal history of pulmonary embolism; Z79.82 Long term (current) use of aspirin; Z79.899 Other long term (current) drug therapy; Z86.718 Personal history of other venous thrombosis and embolism; Z79.01 Long term (current) use of anticoagulants; Z87.891 Personal history of nicotine dependence; Z88.1 Allergy status to other antibiotic agents ==

== ENCOUNTER → 2020-11-20 | Outpatient (CLI) | payer OTHER ==
[~2020-11-20] VITALS: Ht 152.4 cm; Wt 105.8 kg
[~2020-11-20] MED LIST changes: +DULOXETINE HCL60 MG PO
[2020-11-20 10:10] VITALS: BP 166/77
--- NOTE | 2020-11-20 10:21 | NUR ---
Pain Clinic Assessment: 1. History of Osteoarthritis: KNEES HANDS SHOULDERS History of Rheumatoid Arthritis: NO 2. Height: 5 ft. 0 in. 152.4 cm. Weight: 233.2 lb. oz. 105.779 kg. Patient's BMI: 45.5 3. Vital Signs: BP: 166/77 Pulse: 69 Resp: 18 Temp: 02 Sat: 97 ECG Mon: 4. Pain Intensity: 7 5. Fall Risk: Dizziness: N Needs help standing or walking: N Fallen in the last 3 months: N Fall risk comments: 6. Patient on Blood Thinner: XARELTO 7. History of Hypertension: Y 8. Opioid Therapy greater than 6 weeks: Y Opiate Contract Signed: 06/05/15 9. Risk Assessment Tool Provided: LOW RISK 2 10. Functional Assessment Tool: 11. Recreational Drug Use: Never Drug Type: Tobacco Use: Former Smoker Tobacco Type: Amount or Packs/day: How Many Years: Alcohol Use: No Frequency: Quant:
--- NOTE | 2020-11-21 16:00 | HPC ---
[facility] [address] [place] [address] PAIN MANAGEMENT CONSULTATION Name: TIAN BERNARD PAGE Room #: REG ASCENCION Renetta#: [id number] Admission: 11/20/20 Attend Phys: Roseline Martin Discharge: Date of : 49 Report #: [id number] THIS REPORT FOR: cc: Alessandra Reaves MD, Nora P. MD Hocker, Amanda CNS ~ DATE OF SERVICE: 11/20/2020 CHIEF COMPLAINT: Bilateral knee pain and osteoarthritis. HISTORY OF PRESENT ILLNESS: This is a 75-year-old female who returns to the pain clinic today for renewal of her opioid medications. She continues to have problems with her arthritic joints, most specifically in her neck and hands today. She is rating a pain score at 7/10. She believes the weather changes have increased her pain. She describes her pain as an aching, sharp, stabbing pain and some numbness in her hands most recently. She does believe the medications are beneficial as well as using Blue Emu, rest, heat and Voltaren gel to her hands. The patient reports today that she has been having issues with constipation. She is utilizing djiw-blz-sggbiwp Dulcolax. She also reports they have changed her thyroid medication and are adjusting this. She believes this may be part of her constipation issues as well since she had taken a generic medication due to insurance no longer paying for her brand name medications. ALLERGIES: ANCEF. CURRENT LIST OF MEDICATIONS: Dulcolax 90 mg. Methadone 10 mg t.i.d., Blue Emu, diclofenac gel, melatonin, vitamin D, Lasix, Maalox, Xarelto, losartan, atenolol, aspirin, multivitamin, stool softener, atorvastatin, and levothyroxine 150 mcg. PQRS: 1. She has osteoarthritic changes in her knees, hands and shoulders. Denies any rheumatoid arthritis. 2. Height is 5 feet, weight is 233, BMI is 45. 3. Vital signs 166/70, pulse is 69, respirations 18, oxygen sat is 97%. 4. Pain score is 7/10. 5. Denies dizziness. Does use a cane for ambulation, has not fallen in the last 3 months. 6. The patient is on Xarelto as well as medications for hypertension. 7. Opioid therapy is greater than 6 weeks; therefore, an opioid signed contract is on the chart. Risk assessment is low. Functional assessment is . 8. Recreational drug use, she denies. She is a former smoker and does [place] [address] PAIN MANAGEMENT CONSULTATION Name: TIAN BERNARD PAGE Room #: REG ASCENCION Jackson#: [id number] Admission: 11/20/20 Attend Phys: Roseline Martin Discharge: Date of : 49 Report #: [id number] According to the prescription monitoring system, the patient is due for her medication refills. Her morphine mEq according to the CDC guidelines is 90. She is seen in our clinic every 2 months. There is a urine drug screen on the chart that is appropriate for her medications. PHYSICAL EXAMINATION: GENERAL: This is alert and orientated, well-developed, well-nourished, obese 75-year-old female who appears her stated age, rating her pain score at 7/10 today. HEENT: Normocephalic, atraumatic. Extraocular eye muscles are intact. She is wearing a mask. Her speech is fluent. NECK: Without adenopathy or JVD. MUSCULOSKELETAL: She has tenderness in her hands bilaterally today, greater on her thumbs and she has numerous deformities in her arthritic joints. Tenderness in her knees bilaterally as well that is increased with ambulation and weightbearing. She does use a cane. She has an antalgic gait and uses the armrest to raise from the seated position. Her lower extremity strength is symmetrical at 5/5. IMPRESSION: 1. Chronic osteoarthritis in her knees bilaterally, shoulders and hands. 2. History of atrial fibrillation, on anticoagulation therapy. 3. Hypertension. 4. Morbid obesity. 5. Chronic opioid use under written agreement as scheduled opioids. We reviewed the fact that opiate medications are being used to provide analgesia adequate to support activities of daily living, not attempting to achieve a specific pain score on the 0-10 Visual Analog Scale. The current opiate medications are providing sufficient analgesia to allow the patient to participate in activities of daily living. The patient is not exhibiting any aberrant behavior suggestive of drug diversion. The patient is not having any adverse reactions to medications. The patient is not suffering from daytime somnolence or mental acuity changes. The patient is managing opiate-induced constipation with appropriate uldi-xku-lezmedj agents and dietary considerations. The patient was counseled on concern for caution with operating a motor vehicle while using opiate medications. PLAN: 1. We discussed treatment options with the patient today. The patient finds her medications very beneficial despite increase in pain. I encouraged her to use her Voltaren gel on her arthritic hands, more frequently or her Blue Emu. Scripts will be sent for refills of her Voltaren gel today. We will continue on her methadone 10 mg 3 times a day. These will be sent to the pharmacy by Dr. West for today and 4-week supply. 2. The patient does discuss increasing constipation. I believe it may be due [facility] [address] [place] [address] PAIN MANAGEMENT CONSULTATION Name: TIAN PAGE Room #: REG ASADShaista Jackson#: [id number] Admission: 11/20/20 Attend Phys: Roseline Martin Discharge: Date of : 49 Report #: [id number] to the fact that she has rotated from brand name Synthroid to generic levothyroxine. She believes she is not feeling as well as she had in the past with more constipation and more tiredness. The patient is due to have her lab results back this week. She has now been utilizing taja-owx-lenbpwb medications on a daily basis to combat her constipation, I encouraged her to use MiraLax and not Dulcolax on a daily basis. 3. The patient has not had her COVID vaccine. We did schedule her at the hospital for her first vaccine next week. Time spent with the patient in consultation, reviewing recent studies and clinical notes, physical examination and correlation of physical findings and medical documentation to determine treatments 10 minutes. Time spent in preparation for appointment reviewing prescription monitoring system reviewing previous records and possible treatment options, reviewing current medications 5 minutes. Time spent preparing and sending electronic prescriptions with collaborating physician, Dr. West and documentation of visit and plan of treatment 6 minutes. Total time spent 21 minutes. <ELECTRONICALLY SIGNED> By: Roseline Martin 11/21/20 1600 [id number] Roseline Martin /alejandra
== END ==
LOC: PAIN 06:45
PROVIDERS: ATTEND Clinical Nurse Specialist Adult Health
DX: M17.0 Bilateral primary osteoarthritis of knee (principal); M19.011 Primary osteoarthritis, right shoulder; M19.012 Primary osteoarthritis, left shoulder; M19.041 Primary osteoarthritis, right hand; M19.042 Primary osteoarthritis, left hand; I10 Essential (primary) hypertension; E66.9 Obesity, unspecified; F11.20 Opioid dependence, uncomplicated; Z86.79 Personal history of other diseases of the circulatory system

== ENCOUNTER → 2021-01-24 | Outpatient (CLI) | payer OTHER ==
[~2021-01-24] VITALS: Ht 152.4 cm; Wt 96.3 kg
[~2021-01-24] MED LIST changes: +VOLTAREN ARTHRI20 GM TOP
[2021-01-24 10:38] VITALS: BP 100/60
--- NOTE | 2021-01-24 10:58 | NUR ---
Pain Clinic Assessment: 1. History of Osteoarthritis: KNEES HANDS SHOULDERS History of Rheumatoid Arthritis: NO 2. Height: 5 ft. 0 in. 152.4 cm. Weight: 212.2 lb. oz. 96.253 kg. Patient's BMI: 41.4 3. Vital Signs: BP: 100/60 Pulse: 65 Resp: 20 Temp: 02 Sat: 98 ECG Mon: 4. Pain Intensity: 6 5. Fall Risk: Dizziness: Y Needs help standing or walking: Y Fallen in the last 3 months: N Fall risk comments: 6. Patient on Blood Thinner: XARELTO 7. History of Hypertension: Y 8. Opioid Therapy greater than 6 weeks: Y Opiate Contract Signed: 06/05/15 9. Risk Assessment Tool Provided: LOW RISK 2 10. Functional Assessment Tool: 11. Recreational Drug Use: Never Drug Type: Tobacco Use: Former Smoker Tobacco Type: Amount or Packs/day: How Many Years: Alcohol Use: No Frequency: Quant:
== END ==
LOC: PAIN 01-22 06:50
PROVIDERS: ATTEND Anesthesiology Pain Medicine
DX: M25.561 Pain in right knee (principal); M25.562 Pain in left knee; G89.29 Other chronic pain; I48.91 Unspecified atrial fibrillation; I10 Essential (primary) hypertension; E66.01 Morbid (severe) obesity due to excess calories; E78.5 Hyperlipidemia, unspecified; E03.9 Hypothyroidism, unspecified; F32.9 Major depressive disorder, single episode, unspecified; Z87.891 Personal history of nicotine dependence; Z90.710 Acquired absence of both cervix and uterus; Z79.891 Long term (current) use of opiate analgesic; Z79.899 Other long term (current) drug therapy

== ENCOUNTER → 2021-03-26 | Outpatient (CLI) | payer OTHER ==
[~2021-03-26] VITALS: Ht 152.4 cm; Wt 89.1 kg
[~2021-03-26] MED LIST changes: +SYNTHROID137 MC1 PO; -SYNTHROID150 MCG PO
[2021-03-26 10:32] VITALS: BP 114/72
--- NOTE | 2021-03-26 10:54 | NUR ---
Pain Clinic Assessment: 1. History of Osteoarthritis: KNEES HANDS SHOULDERS History of Rheumatoid Arthritis: NO 2. Height: 5 ft. 0 in. 152.4 cm. Weight: 196.4 lb. oz. 89.087 kg. Patient's BMI: 38.4 3. Vital Signs: BP: 114/72 Pulse: 70 Resp: 16 Temp: 02 Sat: 97 ECG Mon: 4. Pain Intensity: 6 5. Fall Risk: Dizziness: N Needs help standing or walking: Y Fallen in the last 3 months: N Fall risk comments: 6. Patient on Blood Thinner: XARELTO 7. History of Hypertension: Y 8. Opioid Therapy greater than 6 weeks: Y Opiate Contract Signed: 06/05/15 9. Risk Assessment Tool Provided: LOW RISK 2 10. Functional Assessment Tool: 11. Recreational Drug Use: Never Drug Type: Tobacco Use: Former Smoker Tobacco Type: Amount or Packs/day: How Many Years: Alcohol Use: No Frequency: Quant:
== END ==
LOC: PAIN 07:01
PROVIDERS: ATTEND Clinical Nurse Specialist Adult Health
DX: M17.0 Bilateral primary osteoarthritis of knee (principal); M19.042 Primary osteoarthritis, left hand; M19.041 Primary osteoarthritis, right hand; I48.91 Unspecified atrial fibrillation; M25.511 Pain in right shoulder; E66.01 Morbid (severe) obesity due to excess calories; Z88.8 Allergy status to other drugs, medicaments and biological substances; Z79.01 Long term (current) use of anticoagulants; Z79.891 Long term (current) use of opiate analgesic; Z79.899 Other long term (current) drug therapy; Z87.891 Personal history of nicotine dependence

== ENCOUNTER 2021-05-06 11:34 | Emergency (ER) | payer OTHER ==
[~2021-05-06] VITALS: Ht 152.4 cm; Wt 87.1 kg
[2021-05-06 11:43] VITALS: BP 104/57
[2021-05-06] MEDS ORDERED: BACTRIM DS TAB1 EACH PO ×3 (12:09→12:12)
== END 2021-05-06 12:10 | disposition home or self-care (01) ==
LOC: ER 11:34
DX: L02.31 Cutaneous abscess of buttock (principal); I10 Essential (primary) hypertension; E78.5 Hyperlipidemia, unspecified; E03.9 Hypothyroidism, unspecified; Z90.711 Acquired absence of uterus with remaining cervical stump; Z98.890 Other specified postprocedural states; Z86.718 Personal history of other venous thrombosis and embolism; Z79.899 Other long term (current) drug therapy; Z79.82 Long term (current) use of aspirin; Z79.1 Long term (current) use of non-steroidal anti-inflammatories (NSAID); Z79.891 Long term (current) use of opiate analgesic; Z88.8 Allergy status to other drugs, medicaments and biological substances

== ENCOUNTER → 2021-05-21 | Outpatient (CLI) | payer OTHER ==
[~2021-05-21] VITALS: Ht 152.4 cm; Wt 85.9 kg
[~2021-05-21] MED LIST changes: +BACTRIM DS TAB1 EACH PO; -LIPITOR40 MG PO; +LIPITOR80 MG PO
[2021-05-21 10:36] VITALS: BP 129/63
--- NOTE | 2021-05-21 10:56 | NUR ---
Pain Clinic Assessment: 1. History of Osteoarthritis: KNEES HANDS SHOULDERS History of Rheumatoid Arthritis: NO 2. Height: 5 ft. 0 in. 152.4 cm. Weight: 189.4 lb. oz. 85.911 kg. Patient's BMI: 37.0 3. Vital Signs: BP: 129/63 Pulse: 88 Resp: 16 Temp: 02 Sat: 98 ECG Mon: 4. Pain Intensity: 7-8 5. Fall Risk: Dizziness: N Needs help standing or walking: Y Fallen in the last 3 months: N Fall risk comments: 6. Patient on Blood Thinner: XARELTO 7. History of Hypertension: Y 8. Opioid Therapy greater than 6 weeks: Y Opiate Contract Signed: 06/05/15 9. Risk Assessment Tool Provided: LOW RISK 2 10. Functional Assessment Tool: 11. Recreational Drug Use: Never Drug Type: Tobacco Use: Former Smoker Tobacco Type: Amount or Packs/day: How Many Years: Alcohol Use: No Frequency: Quant:
== END ==
LOC: PAIN 06:58
PROVIDERS: ATTEND Clinical Nurse Specialist Adult Health
DX: M17.0 Bilateral primary osteoarthritis of knee (principal); M19.011 Primary osteoarthritis, right shoulder; M19.012 Primary osteoarthritis, left shoulder; M19.042 Primary osteoarthritis, left hand; M19.041 Primary osteoarthritis, right hand; E66.01 Morbid (severe) obesity due to excess calories; Z79.82 Long term (current) use of aspirin; Z79.899 Other long term (current) drug therapy; Z88.8 Allergy status to other drugs, medicaments and biological substances

== ENCOUNTER → 2021-06-18 | Outpatient (CLI) | payer OTHER ==
[~2021-06-18] VITALS: Ht 152.4 cm; Wt 81.3 kg
[2021-06-18 11:02] VITALS: BP 150/93
--- NOTE | 2021-06-18 11:10 | NUR ---
Pain Clinic Assessment: 1. History of Osteoarthritis: KNEES HANDS SHOULDERS History of Rheumatoid Arthritis: NO 2. Height: 5 ft. 0 in. 152.4 cm. Weight: 179.2 lb. oz. 81.285 kg. Patient's BMI: 35.0 3. Vital Signs: BP: 150/93 Pulse: 74 Resp: 20 Temp: 02 Sat: 100 ECG Mon: 4. Pain Intensity: 7 5. Fall Risk: Dizziness: N Needs help standing or walking: Y Fallen in the last 3 months: N Fall risk comments: 6. Patient on Blood Thinner: XARELTO 7. History of Hypertension: Y 8. Opioid Therapy greater than 6 weeks: Y Opiate Contract Signed: 06/05/15 9. Risk Assessment Tool Provided: LOW RISK 2 10. Functional Assessment Tool: 11. Recreational Drug Use: Never Drug Type: Tobacco Use: Former Smoker Tobacco Type: Amount or Packs/day: How Many Years: Alcohol Use: No Frequency: Quant:
== END ==
LOC: PAIN 07:12
PROVIDERS: ATTEND Anesthesiology Pain Medicine
DX: M17.0 Bilateral primary osteoarthritis of knee (principal); M19.011 Primary osteoarthritis, right shoulder; M19.012 Primary osteoarthritis, left shoulder; I10 Essential (primary) hypertension; E66.01 Morbid (severe) obesity due to excess calories; E78.5 Hyperlipidemia, unspecified; E03.9 Hypothyroidism, unspecified; Z79.82 Long term (current) use of aspirin; Z79.899 Other long term (current) drug therapy; Z87.891 Personal history of nicotine dependence; Z88.8 Allergy status to other drugs, medicaments and biological substances

== ENCOUNTER → 2021-06-26 | Outpatient (CLI) | payer OTHER | LOC: SJCVCIMAG 07:06 | PROVIDERS: ATTEND Internal Medicine Cardiovascular Disease | DX: R94.31 Abnormal electrocardiogram [ECG] [EKG] (principal); I13.0 Hypertensive heart and chronic kidney disease with heart failure and stage 1 through stage 4 chronic kidney disease, or unspecified chronic kidney disease; I25.10 Atherosclerotic heart disease of native coronary artery without angina pectoris; E78.00 Pure hypercholesterolemia, unspecified; R60.9 Edema, unspecified; N18.9 Chronic kidney disease, unspecified; I50.9 Heart failure, unspecified; E03.9 Hypothyroidism, unspecified; E78.5 Hyperlipidemia, unspecified; Z88.8 Allergy status to other drugs, medicaments and biological substances; Z79.82 Long term (current) use of aspirin; Z79.899 Other long term (current) drug therapy; Z87.891 Personal history of nicotine dependence; Z95.818 Presence of other cardiac implants and grafts ==

== ENCOUNTER → 2021-08-13 | Outpatient (CLI) | payer OTHER ==
[~2021-08-13] VITALS: Ht 152.4 cm; Wt 87.2 kg
[2021-08-13 13:45] VITALS: BP 124/57
--- NOTE | 2021-08-13 13:55 | NUR ---
Pain Clinic Assessment: 1. History of Osteoarthritis: KNEES HANDS SHOULDERS History of Rheumatoid Arthritis: NO 2. Height: 5 ft. 0 in. 152.4 cm. Weight: 192.2 lb. oz. 87.181 kg. Patient's BMI: 37.5 3. Vital Signs: BP: 124/57 Pulse: 84 Resp: 18 Temp: 02 Sat: ECG Mon: 4. Pain Intensity: 8 5. Fall Risk: Dizziness: N Needs help standing or walking: Y Fallen in the last 3 months: N Fall risk comments: 6. Patient on Blood Thinner: XARELTO 7. History of Hypertension: Y 8. Opioid Therapy greater than 6 weeks: Y Opiate Contract Signed: 06/05/15 9. Risk Assessment Tool Provided: LOW RISK 2 10. Functional Assessment Tool: 11. Recreational Drug Use: Never Drug Type: Tobacco Use: Former Smoker Tobacco Type: Amount or Packs/day: How Many Years: Alcohol Use: No Frequency: Quant:
== END ==
LOC: PAIN 09:44
PROVIDERS: ATTEND Clinical Nurse Specialist Adult Health
DX: M17.0 Bilateral primary osteoarthritis of knee (principal); M19.012 Primary osteoarthritis, left shoulder; M19.011 Primary osteoarthritis, right shoulder; M19.042 Primary osteoarthritis, left hand; M19.041 Primary osteoarthritis, right hand; G89.29 Other chronic pain; I48.91 Unspecified atrial fibrillation; Z79.01 Long term (current) use of anticoagulants; Z88.8 Allergy status to other drugs, medicaments and biological substances; Z79.82 Long term (current) use of aspirin; Z79.899 Other long term (current) drug therapy

== ENCOUNTER → 2021-10-10 | Outpatient (CLI) | payer OTHER ==
[~2021-10-10] VITALS: Ht 152.4 cm; Wt 79.4 kg
[2021-10-10 14:22] VITALS: BP 127/66
--- NOTE | 2021-10-10 14:24 | NUR ---
Pain Clinic Assessment: 1. History of Osteoarthritis: KNEES HANDS SHOULDERS History of Rheumatoid Arthritis: NO 2. Height: 5 ft. 0 in. 152.4 cm. Weight: 175.0 lb. oz. 79.380 kg. Patient's BMI: 34.2 3. Vital Signs: BP: 127/66 Pulse: 66 Resp: 20 Temp: 02 Sat: 99 ECG Mon: 4. Pain Intensity: 8 5. Fall Risk: Dizziness: N Needs help standing or walking: N Fallen in the last 3 months: N Fall risk comments: 6. Patient on Blood Thinner: XARELTO 7. History of Hypertension: Y 8. Opioid Therapy greater than 6 weeks: Y Opiate Contract Signed: 06/05/15 9. Risk Assessment Tool Provided: LOW RISK 2 10. Functional Assessment Tool: 11. Recreational Drug Use: Never Drug Type: Tobacco Use: Former Smoker Tobacco Type: Amount or Packs/day: How Many Years: Alcohol Use: No Frequency: Quant:
== END ==
LOC: PAIN 07:03
PROVIDERS: ATTEND Anesthesiology Pain Medicine
DX: M17.0 Bilateral primary osteoarthritis of knee (principal); I48.91 Unspecified atrial fibrillation; I10 Essential (primary) hypertension; E66.8 Other obesity; F11.20 Opioid dependence, uncomplicated; Z88.8 Allergy status to other drugs, medicaments and biological substances; Z79.02 Long term (current) use of antithrombotics/antiplatelets; Z79.899 Other long term (current) drug therapy